=== PATIENT | female | born 1945 | race Caucasian/White ===

== ENCOUNTER 2019-05-27 15:23 | Observation (INO) | payer MEDICARE, MEDICAID ==
--- NOTE | 2019-05-27 17:48 | ED ---
GI/ HPI - HPI Summary HPI Summary: Pt is a 74 y/o F presenting to the ED with a chief complaint of vaginal bleeding initially onset last night described as small clots. The last time she experienced any vaginal bleeding was about 12yrs ago. She also reports not eating and weight loss subsequently, approx. 50lbs in 3 wks, d/t dry mouth, and constipation. She is on Coumadin, and last had a pap smear in 2011. She denies any abdominal pain or being sexually active. - History of Current Complaint Chief Complaint: EDVaginalBleeding Time Seen by Provider: 05/27/19 17:01 Stated Complaint: HEAVY BLEEDING PER PT Hx Obtained From: Patient Onset/Duration: Started Hours Ago, Still Present Timing: Constant, Lasting Hours Severity: Mild Current Severity: None Vaginal Bleeding Description: Clots Pain Intensity: 0 Location of Pain: None Associated Signs and Symptoms: Positive: Constipation, Other: - not eating, weight loss, dry mouth. Negative: Abdominal Pain Additional Signs & Symptoms: Positive: Vaginal Bleeding Aggravating Factor(s): Nothing Alleviating Factor(s): Nothing - Allergy/Home Medications Allergies/Adverse Reactions: Allergies Allergy/AdvReac Type Severity Reaction Status Date / Time bee venom protein (honey bee) Allergy Swelling Verified 05/27/19 15:54 PMH/Surg Hx/FS Hx/Imm Hx Previously Healthy: Yes Endocrine/Hematology History: Reports: Hx Thyroid Disease - HYPOTHYROID Cardiovascular History: Reports: Hx Hypertension Respiratory History: Reports: Hx Asthma - since 2010, Hx Chronic Obstructive Pulmonary Disease (COPD), Hx Seasonal Allergies, Hx Sleep Apnea Musculoskeletal History: Reports: Hx Arthritis, Hx Osteoporosis Sensory History: Reports: Hx Cataracts - cataract surgery to left eye, cataract in right eye also, no surgery Opthamlomology History: Reports: Hx Cataracts - cataract surgery to left eye, cataract in right eye also, no surgery Psychiatric History: Reports: Hx Anxiety, Hx Depression - Surgical History Surgery Procedure, Year, and Place: C Sections x2. 02/10/1972. 07/1966 Hx Anesthesia Reactions: No Infectious Disease History: No Infectious Disease History: Denies: Hx Clostridium Difficile, Hx Hepatitis, Hx Human Immunodeficiency Virus (HIV), Hx Shingles, Hx Tuberculosis, Traveled Outside the [place] in Last 30 Days - Family History Known Family History: Negative: Renal Disease - Social History Alcohol Use: None Hx Substance Use: No Substance Use Type: Reports: None Hx Tobacco Use: Yes Smoking Status (MU): Light Every Day Tobacco Smoker Review of Systems Positive: Other - dry mouth, not eating, lost ~50lbs in 3wks Positive: Other - constipation. Negative: Abdominal Pain Positive: other - vaginal bleeding All Other Systems Reviewed And Are Negative: Yes Physical Exam - Summary Physical Exam Summary: Constitutional: Well-developed, Well-nourished, Alert. (-) Distressed Skin: Warm, Dry HENT: Normocephalic; Atraumatic Eyes: Conjunctiva normal Neck: Musculoskeletal ROM normal neck. (-) JVD, (-) Stridor, (-) Tracheal deviation Cardio: Rhythm regular, rate normal, Heart sounds normal; Intact distal pulses; Radial pulses are 2+ and symmetric. (-) Murmur Pulmonary/Chest wall: Effort normal. (-) Respiratory distress, (-) Wheezes, (-) Rales Abd: Soft, (-) tenderness, (-) Distension, (-) Guarding, (-) Rebound Musculoskeletal: (-) Edema Lymph: (-) Cervical adenopathy Neuro: Alert, Oriented x3 Psych: Mood and affect Normal : No visualized mass. Limited secondary to pain. On digital exam, she does have nodularity on anterior vaginal wall. Triage Information Reviewed: Yes Vital Signs On Initial Exam: Initial Vitals Temp Pulse Resp BP Pulse Ox 97.1 F 88 18 119/69 95 05/27/19 15:49 05/27/19 15:49 05/27/19 15:49 05/27/19 15:49 05/27/19 15:49 Vital Signs Reviewed: Yes Procedures - Sedation Patient Received Moderate/Deep Sedation with Procedure: No Diagnostics - Vital Signs Vital Signs Temp Pulse Resp BP Pulse Ox 05/27/19 15:49 97.1 F 88 18 119/69 95 - Laboratory Result Diagrams: 05/27/19 17:34 05/27/19 17:34 Lab Statement: Any lab studies that have been ordered have been reviewed, and results considered in the medical decision making process. - Ultrasound Transvaginal US Ultrasound Interpretation Completed By: Radiologist Summary of Ultrasound Findings: 1. Endometrial stripe is abnormally thickened measuring 16mm. 2. The left ovary contains 2 simple appearing cystic structures , the larger cyst measuring a maximum of 1.8 cm. ED physician has reviewed this report. GIGU Course/Dx - Course Course Of Treatment: Patient is here with 24 hours of vaginal bleeding in the setting of being hyper anticoagulated from Coumadin. Patient an INR greater than 10. Patient was hemodynamically stable with a stable CBC. Patient had a vaginal exam which showed blood in the vaginal vault and nodularity in the uterus. Patient had an ultrasound showed a thickened endometrial stripe. Patient was given oral vitamin K as she did not have life-threatening hemorrhage. Patient is admitted to medicine for management of her anticoagulation - Diagnoses Provider Diagnoses: Vaginal bleeding, Elevated INR - Physician Notifications Discussed Care Of Patient With: Arsalan Cabral Time Discussed With Above Provider: 19:32 Instructed by Provider To: Admit As Inpatient Discharge ED - Sign-Out/Discharge Documenting (check all that apply): Patient Departure - Discharge Plan Condition: Stable Disposition: ADMITTED TO [facility] Referrals: Care [facility] [Outside] - Billing Disposition and Condition Condition: STABLE Disposition: Admitted to [facility] - Attestation Statements Document Initiated by Joannaibe: Yes Documenting Scribe: Svetlana Hanna Provider For Whom Negro is Documenting (Include Credential): Elver Peter MD. Scribe Attestation: Svetlana Cates, scribed for Elver Peter MD. on 05/27/19 at 2050. Scribe Documentation Reviewed: Yes Provider Attestation: The documentation as recorded by the scribeSvetlana accurately reflects the service I personally performed and the decisions made by , Elver Peter MD. Status of Scribe Document: Viewed
[2019-05-27 17:52] LABS: ABS Basophils 0.1 10^3/ul (0-0.2); ABS Eosinophils 0.3 10^3/ul (0-0.6); ABS Lymphocytes 2.3 10^3/ul (1.0-4.8); ABS Monocytes 0.9 10^3/ul (0-0.8); ABS Neutrophils 10.3 10^3/ul (1.5-7.7); Eosinophil % 1.9 %; Hematocrit 48 % (35-47); Hemoglobin 16.1 g/dL (12.0-16.0); Lymphocyte % 16.6 %; Mean Corpuscular HGB Conc 33 g/dL (31-36); Mean Corpuscular Hemoglobin 31 pg (27-31); Mean Corpuscular Volume 93 fL (80-97); Mean Platelet Volume 10.3 fL (7.4-10.4); Nucleated Red Blood Cells % 0.1; Platelet Count 187 10^3/uL (150-450); Red Blood Count 5.17 10^6 /uL (3.70-4.87); Red Cell Distribution Width 15 % (10-15); White Blood Count 13.8 10^3/uL (3.5-10.8)
[2019-05-27] MEDS ORDERED: Mometasone 220 MCG MDI INH SCH (18:00)
[2019-05-27 18:06] LABS: Albumin 3.4 g/dL (3.2-5.2); Albumin/Globulin Ratio 0.9 (1-3); BUN/Creatinine Ratio 16.5 (8-20); EGFR African American 86.6 (>60); EGFR Non-African American 71.5 (>60); Potassium 3.6 mmol/L (3.5-5.0); Total Bilirubin 0.8 mg/dL (0.2-1.0); Total Protein 7.4 g/dL (6.4-8.9)
--- OUTSIDE RECORDS SUMMARY | 2019-05-27 18:18 | XMS REPORT | Continuity of Care Document ---
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 Onset: 02/14/2012 Atrial fibrillation Rodolfo Landis M.D. Onset: 02/14/2012 Morbid obesity Rodolfo Landis M.D. Onset: 02/14/2012 Chronic atrial fibrillation Rodolfo Landis M.D. Onset: 04/06/2016 Cardiomyopathy Rodolfo Landis M.D. Onset: 04/06/2016 Essential hypertension Rodolfo Landis M.D. Onset: 07/04/2018 Social History Type Date Description Comments Sex Unknown ETOH Use Denies alcohol use Tobacco Use Start: Unknown Patient is a current smoker, smokes every day Recreational Drug Use Denies Drug Use Tobacco Use Start: Unknown Patient is a current smoker, smokes 1PPD every day Exercise Type/Frequency Exercises rarely Allergies, Adverse Reactions, Alerts Active Allergies Reaction Severity Comments Date Bee Stings 04/03/2007 Medications Active Medications SIG Qnty Indications Ordering Date Provider Potassium Citrate ER one po qd as Rodolfo Yen 07/21/2014 needed (with Delano Landis 10Meq (1080 mg) potassium) Tablets ER Proair HFA 2 puffs po q4h 1units Other Ordering 02/20/2013 108(90Base) prn Provider mcg/Act Aerosol Flonase 2 intranasal 1units Other Ordering 02/20/2013 50mcg/Act puffs to each Provider Suspension nostril daily prn Flovent HFA 2 puffs twice 12gm Other Ordering 02/20/2013 110mcg/Act daily prn Provider Aerosol Spiriva Handihaler 1 inhalation po 1caps Other Ordering 02/20/2013 18mcg qam Provider Capsules Fosamax one tablet weekly 12tabs Other Ordering 02/20/2013 70mg Tablets Provider Tramadol 2 po q 4 - 6 40tabs Other Ordering 02/20/2013 Hydrochloride/Acetamin hours prn pain Provider ophen 37.5-325mg Tablets Lisinopril 1/2 by mouth 100tabs Rodolfo Yen 02/14/2012 10mg Tablets every day Delano Landis Digoxin 1 po qd 60tabs Rodolfo Yen 12/16/2010 0.25mg Tablets Delano Landis Jobst Relief Calf 1 pair daily 2units Rodolfo Yen 08/08/2010 High Closed Toe/Medium Delano Landis Large Size Misc Cardizem CD 1 by mouth every 90caps Rodolfo Yen 11/17/2008 360mg Caps ER day Delano Landis 24HR Coumadin 1 po tiw 60tabs Rodolfo Yen 04/03/2007 5mg Tablets (mon-wed-fri) 1/2 Delano Landis po [facility] [place], [facility]. [facility] Benadryl 1 PO prn Rodolfo Yen 04/03/2007 25mg Capsules Delano Landis Sertraline HCL 2 tabs PO qd Unknown 100mg Tablets Lasix 2 by mouth as 34tabs Rodolfo Yen 20mg Tablets needed Delano Landis Cyclobenzaprine HCL 1 tab by mouth 30tabs Unknown 10mg three times a day Tablets prn Levothyroxine Sodium 1 po qd Unknown 200mcg Tablets Metoprolol Succinate 1 by mouth twice Unknown ER daily 25mg Tablets ER 24HR Atorvastatin Calcium 1 by mouth every 90tabs Genevieve, 10mg day MD Leila Tablets Immunizations Description No Information Available Vital Signs Date Vital Result Comment 07/04/2018 1:38pm Height 60 inches 5'0" Weight 234.56 lb with shoes Heart Rate 80 /min left radial, irregular BP Systolic Sitting 138 mmHg left arm, irregular BP Diastolic Sitting 70 mmHg left arm, irregular BMI (Body Mass Index) 45.8 kg/m2 Ejection Fraction 55-60% echo 10/20/15 04/06/2016 2:38pm Height 60 inches 5'0" Weight 245.00 lb Heart Rate 78 /min irreg BP Systolic Sitting 132 mmHg LA, large BP Diastolic Sitting 64 mmHg LA, large BMI (Body Mass Index) 47.8 kg/m2 Ejection Fraction 60%-65% 04/22/13 Results Description No Information Available Procedures Description No Information Available Medical Devices Description No Information Available Encounters Description No Information Available Assessments Description No Information Available Plan of Treatment Future Appointment(s):05/15/2019 1:00 pm - Santa Epperson NP at [facility]07/04/2018 - Rodolfo Landis M.D.I48.2 Chronic atrial fibrillationFollow up:please obtain labs from [facility] from the last 3 m [id number] Nonrheumatic mitral (valve) [id number] Cardiomyopathy, unspecifiedFollow up:ov 14 mI10 Essential (primary) [id number] Morbid ( severe) obesity due to excess [id number] Dyspnea, unspecified Functional Status Description No Information Available Mental Status Description No Information Available Referrals Description No Information Available
--- OUTSIDE RECORDS SUMMARY | 2019-05-27 18:18 | XMS REPORT | Continuity of Care Document ---
:1945 External Reference #:[id number] Author Name Liliana Mohamud Care Team Providers Name Role Phone Leila Vallejo MD - Family Care Team Information [employer] [employer] Medicine Problems Active Problems Provider Date Benign [...] Tablets Lisinopril 1/2 by mouth 100tabs Rodolfo Yne 02/14/2012 10mg Tablets every day Delano Landis [...] Delano Landis po [place] [place], sun. [facility] Benadryl 1 PO prn Rodolfo [...] 1:00 pm - Santa Epperson NP at [facility]07/04/2018 - Rodolfo Landis M.D.I48.2 Chronic atrial fibrillationFollow up:please obtain labs from [facility] from the last 3 m [id number] Nonrheumatic mitral (valve) qsojsjgtsxjsiW97.9 Cardiomyopathy, unspecifiedFollow up:ov 14 mI10 Essential (primary) [id number] Morbid ( severe) obesity due to excess kepdvuqaQ71.00 Dyspnea, unspecified Functional Status Description No Information Available Mental Status Description No Information Available Referrals Description No Information Available
--- OUTSIDE RECORDS SUMMARY | 2019-05-27 18:18 | XMS REPORT | Summary of Care ---
:1945 Author Organization [facility] Address [address] [facility] [place] [address] Care Team Providers Name Role Phone Leila Vallejo Primary Care Provider Reason for Referral Refer to Department Only (Routine) Status Reason Specialty Diagnoses / Referred By Referred To Procedures Contact Contact Pending Review Gastroenterology Diagnoses Constipation, unspecified constipation type Kate Huang FNP Gastroenterolo [address] [facility] [place], [place] [address] [address] [place], [place] Phone: [phone] Phone: Reason for Visit Reason Comments Mouth/Lip Problem dry mouth, taste problem Constipation Abdominal Pain Encounter Details Date Type Department Care Team Description 05/15/2019 Office Visit [facility] Mary Huang, Constipation, unspecified constipation type (Primary Dx); Practice [facility] Malaise and fatigue; [address] [facility] Thrush; [place] [address] [place] [address] Dry mouth; [phone] Weight loss Allergies Active Allergy Reactions Severity Noted Date Comments Bee Sting Dermatologic Reaction 03/03/2008 documented as of this encounter (statuses as of 05/15/2019) Medications Medication Sig Dispensed Refills Start Date End Date Status Diltiazem HCl Coated Take 1 Cap by 0 Active Beads 360 MG Oral mouth. CAPSULE SR 24 HR lisinopril (PRINIVIL, Take 1 Tab by 90 Tab 1 11/02/2015 Active ZESTRIL) 10 MG Oral mouth DAILY. Tab furosemide (LASIX) 20 Take 2 Tabs by 90 Tab 1 08/08/2016 Active MG Oral Tab mouth EVERY OTHER DAY. Pt taking 2 tabs QOD prn Additional information Patient taking differently: 40 mg Oral PRN, Pt taking 2 tabs QOD prn, Reported on 01/02/2019 7:10 PM potassium chloride Take 1 Cap by 60 Cap 0 08/08/2016 Active (KLOR-CON SPRINKLE) 10 mouth DAILY. MEQ Oral Cap CR cyclobenzaprine Take 1 Tab by 90 Tab 1 03/21/2018 Active (FLEXERIL) 10 MG Oral mouth THREE Tab TIMES DAILY NEEDED for Muscle Spasm . FLOVENT HFA 110 INHALE TWO PUFFS 3 Inhaler 1 04/16/2018 Active MCG/ACT Inhalation BY MOUTH TWICE Aerosol DAILY SPIRIVA HANDIHALER 18 INHALE ONE DOSE 90 Cap 1 04/16/2018 Active MCG Inhalation Cap BY MOUTH ONCE DAILY PROAIR HFA 108 (90 INHALE 2 PUFFS 3 Inhaler 1 11/11/2018 Active Base) MCG/ACT BY MOUTH EVERY 4 Inhalation Aero Soln HOURS NEEDED FOR WHEEZING levothyroxine TAKE 1 TABLET BY 90 Tab 1 01/28/2019 Active (SYNTHROID) 200 MCG MOUTH BEFORE Oral Tab BREAKFAST alendronate (FOSAMAX) TAKE 1 TABLET BY 12 Tab 1 01/28/2019 Active 70 MG Oral Tab MOUTH ONCE A WEEK atorvastatin (LIPITOR) TAKE 1 TABLET BY 90 Tab 1 02/07/2019 Active 10 MG Oral Tab MOUTH ONCE DAILY Vitamin D, Take 50,000 4 Cap 3 03/21/2019 Active Ergocalciferol, Units by mouth (ERGOCALCIFEROL) 09031 DAILY. units Oral Cap digoxin (LANOXIN, TAKE 1 TABLET BY 90 Tab 1 04/03/2019 Active DIGITEK) 250 MCG Oral MOUTH ONCE DAILY Tab oxybutynin (DITROPAN Take 1 Tab by 30 Tab 0 04/10/2019 Active XL) 5 MG Oral TABLET mouth DAILY. SR 24 HR metoprolol succinate Take 1 Tab by 180 Tab 1 04/10/2019 Active (TOPROL XL) 25 MG Oral mouth TWICE TABLET SR 24 HR DAILY. levothyroxine Take 1 Tab by 30 Tab 2 04/23/2019 Active (SYNTHROID) 175 MCG mouth BEFORE Oral Tab BREAKFAST. warfarin (COUMADIN) 5 Take 0.5 Tabs by 90 Tab 3 04/28/2019 Active MG Oral mouth DAILY. TabIndications: Atrial 2.5mg daily fibrillation, unspecified type (HCC) sertraline (ZOLOFT) TAKE 2 TABLETS 180 Tab 1 04/28/2019 Active 100 MG Oral Tab BY MOUTH AT BEDTIME nystatin (MYCOSTATIN) Take 5 mL by 280 mL 0 05/15/2019 Active 493438 UNIT/ML mouth FOUR TIMES Mouth/Throat DAILY. SuspensionIndications: Thrush tramadol (ULTRAM) 50 Take 1 Tab by 60 Tab 0 05/15/2019 Active MG Oral Tab mouth EVERY SIX HOURS NEEDED (pain). Max Daily Amount: 200 mg. tramadol (ULTRAM) 50 Take 1 Tab by 60 Tab 0 02/25/2019 1010/ Discontinued MG Oral mouth EVERY SIX 2019 (Reorder) TabIndications: Left HOURS NEEDED lower quadrant pain (pain). Max Daily Amount: 200 mg. warfarin (COUMADIN) 5 Take 0.5 Tabs by 60 Tab 0 04/04/201910/ Discontinued MG Oral mouth DAILY. 2019 (Duplicate Order) TabIndications: Atrial 2.5mg daily fibrillation, unspecified type (HCC) documented as of this encounter (statuses as of 05/15/2019) Active Problems Problem Noted Date Depression 09/26/2016 Atrial fibrillation, unspecified type 10/14/2015 A-fib 07/22/2014 HTN (hypertension) 07/17/2014 BMI 45.0-49.9, adult 07/17/2014 Cervical dysplasia 05/30/2012 Osteoporosis 04/26/2012 COPD (chronic obstructive pulmonary disease) 03/04/2012 DJD (degenerative joint disease) 03/04/2012 ANDRESSA (obstructive sleep apnea) 11/01/2010 Overview: Wearing cpap mask Since 08/2009 Hypothyroid 11/01/2010 Overview: Status post AHUJA ~1994 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 Diltiazem increases warfarin effect Levothyroxine increases warfarin effect Sertraline increases warfarin level Updated Referral: 12/2011, 01/2013, 07/21/14, 11/2015, 01/29/17, 08/2018 AntiCoag Orders 01/21/2013, 07/22/14, 11/18/15, 03/26/17, 08/27/18 Tobacco use disorder 04/02/2007 Atrial fibrillation 07/06/2005 Overview: Chronic; cath 2007 Dr Perry Cardiomyopathy documented as of this encounter (statuses as of 05/15/2019) Immunizations Name Administration Dates Next Due H1N1 Injectable Adult 08/27/2009 Influenza (IM) Preservative Free 07/17/2014, 05/21/2013, 04/02/2012 Influenza Vaccine 65 Yrs + 04/22/2019 Influenza Vaccine High Dose 05/27/2018, 07/06/2017, 07/18/2016, 07/06/2015 Influenza Vaccine Whole 05/25/2009, 06/13/2007 Influenza Virus Vaccine Pres Free 6-35 04/28/2011 Months PNEUMOCOCCAL POLYSACCHARIDE VACCINE 04/02/2012 Pneumococcal Conjugate(13 Valent) 09/26/2016 documented as of this encounter Social History Tobacco Use Types Packs/Day Years Used Date Current Every Day Smoker Cigars 0.5 55 Started: 1962 Smokeless Tobacco: Never Used Tobacco Cessation: Ready to Quit: No; Counseling Given: Yes Alcohol Use Drinks/Week oz/Week Comments Not Currently RARE Social Isolation Answer Date Recorded In a typical week, how many times do you More than three times a week 2018 talk on the phone with family, friends, or neighbors? How often do you get together with friends More than three times a week 01/06 or relatives? How often do you attend yarsanism or Not asked samaritan services? Do you belong to any clubs or Not asked organizations such as yarsanism groups, unions, fraternal or athletic groups, or school groups? How often do you attend meetings of the Not asked clubs or organizations you belong to? Are you now , , , 01/06/2019 , never or living with a partner? Physical Activity Answer Date Recorded On average, how many days per week do you engage in moderate to 0 days 2018 strenuous exercise (like walking fast, running, jogging, dancing, swimming, biking, or other activities that cause a light or heavy sweat)? On average, how many minutes do you engage in exercise at this 0 min 2018 level? Stress Answer Date Recorded Do you feel stress - tense, restless, nervous, or anxious, Not at all 2018 or unable to sleep at night because your mind is troubled all the time - these days? Financial Resource Strain Answer Date Recorded How hard is it for you to pay for the very basics like Not hard at all 2018 food, housing, medical care, and heating? Intimate Partner Violence Answer Date Recorded Within the last year, have you been afraid of your partner or No 01/06/2019 ex-partner? Within the last year, have you been humiliated or emotionally No 01/06/2019 abused in other ways by your partner or ex-partner? Within the last year, have you been kicked, hit, slapped, or No 01/06/2019 otherwise physically hurt by your partner or ex-partner? Within the last year, have you been raped or forced to have any No 01/06/2019 kind of sexual activity by your partner or ex-partner? Food Insecurity Answer Date Recorded Within the past 12 months, you worried that your food would Never true 2018 run out before you got money to buy more. Within the past 12 months, the food you bought just didn't Never true 2018 last and you didn't have money to get more. Transportation Needs Answer Date Recorded In the past 12 months, has lack of transportation kept you from No 01/06/2019 medical appointments or from getting medications? In the past 12 months, has lack of transportation kept you from No 01/06/2019 meetings, work, or getting things needed for daily living? Sex Assigned at Date Recorded Not on file Job Start Date Occupation Industry Not on file Not on file Not on file Travel History Travel Start Travel End No recent travel history available. documented as of this encounter Last Filed Vital Signs Vital Sign Reading Time Taken Comments Blood Pressure 148/68 05/15/2019 11:01 AM EDT Pulse 97 05/15/2019 11:01 AM EDT Temperature 37 05/15/2019 11:01 AM EDT C (98.6 F) Respiratory Rate - - Oxygen Saturation 94% 05/15/2019 11:01 AM EDT Inhaled Oxygen Concentration - - Weight 83.9 kg (185 lb) 05/15/2019 11:01 AM EDT Height 149.9 cm (4' 11") 05/15/2019 11:01 AM EDT Body Mass Index 37.37 05/15/2019 11:01 AM EDT documented in this encounter Patient Instructions Patient InstructionsMary Huang FNP - 05/15/2019 11:00 AM EDTMedication as directed Lots of water Can try sour candy to stimulate saliva Labs today Schedule appointment with GI Follow up with Dr Vallejo as scheduled documented in this encounter Progress Notes Mary Huang FNP - 05/15/2019 11:00 AM EDT PATIENT: Kae Rhodes : 1945 DATE OF SERVICE: 05/15/2019 CHIEF COMPLAINT: Chief Complaint Patient presents with Mouth/Lip Problem dry mouth, taste problem Constipation Abdominal Pain Subjective HISTORY OF PRESENT ILLNESS: Kae Rhodes is a 74-y.o. female. HPI Increased constipation, poor appetite, mouth dry, wt loss. Drinks 3-4 glasses of water a day. Has not had colonoscopy - refuses. Past Medical History: Diagnosis Date Asthma 03/16/2008 Atrial fibrillation (HCC) 07/06/2005 Back pain Cardiomyopathy (HCC) COPD (chronic obstructive pulmonary disease) (HCC) DJD (degenerative joint disease) 03/04/2012 History of breast surgery rt breast bx benign Hypertension Hypothyroidism Obesity Osteoporosis Ovarian cancer (HCC) Sleep apnea CPAP / HS Family History Problem Relation Age of Onset Breast Cancer Mother Radical Mastectomy Arthritis Mother Ovarian Cancer Sister Arthritis Sister Thyroid Sister Asthma Sister Asthma Sister Cancer Sister Cancer Father Asthma Brother COPD Brother No Known Problems Son No Known Problems Daughter Current Outpatient Medications Medication Sig alendronate (FOSAMAX) 70 MG Oral Tab TAKE 1 TABLET BY MOUTH ONCE A WEEK atorvastatin (LIPITOR) 10 MG Oral Tab TAKE 1 TABLET BY MOUTH ONCE DAILY cyclobenzaprine (FLEXERIL) 10 MG Oral Tab Take 1 Tab by mouth THREE TIMES DAILY NEEDED forMuscle Spasm . digoxin (LANOXIN, DIGITEK) 250 MCG Oral Tab TAKE 1 TABLET BY MOUTH ONCE DAILY Diltiazem HCl Coated Beads 360 MG Oral CAPSULE SR 24 HR Take 1 Cap by mouth. FLOVENT HFA 110 MCG/ACT Inhalation Aerosol INHALE TWO PUFFS BY MOUTH TWICE DAILY furosemide (LASIX) 20 MG Oral Tab Take 2 Tabs by mouth EVERY OTHER DAY. Pt taking 2 tabs QOD prn (Patient taking differently: Take 40 mg by mouth NEEDED. Pt taking 2 tabs QOD prn) levothyroxine (SYNTHROID) 175 MCG Oral Tab Take 1 Tab by mouth BEFORE BREAKFAST. levothyroxine (SYNTHROID) 200 MCG Oral Tab TAKE 1 TABLET BY MOUTH BEFORE BREAKFAST lisinopril (PRINIVIL, ZESTRIL) 10 MG Oral Tab Take 1 Tab by mouth DAILY. metoprolol succinate (TOPROL XL) 25 MG Oral TABLET SR 24 HR Take 1 Tab by mouth TWICE DAILY. nystatin (MYCOSTATIN) 371484 UNIT/ML Mouth/Throat Suspension Take 5 mL by mouth FOUR TIMES DAILY. oxybutynin (DITROPAN XL) 5 MG Oral TABLET SR 24 HR Take 1 Tab by mouth DAILY. potassium chloride (KLOR-CON SPRINKLE) 10 MEQ Oral Cap CR Take 1 Cap by mouth DAILY. PROAIR HFA 108 (90 Base) MCG/ACT Inhalation Aero Soln INHALE 2 PUFFS BY MOUTH EVERY 4 HOURS NEEDED FOR WHEEZING sertraline (ZOLOFT) 100 MG Oral Tab TAKE 2 TABLETS BY MOUTH AT BEDTIME SPIRIVA HANDIHALER 18 MCG Inhalation Cap INHALE ONE DOSE BY MOUTH ONCE DAILY tramadol (ULTRAM) 50 MG Oral Tab Take 1 Tab by mouth EVERY SIX HOURS NEEDED (pain). Max Daily Amount: 200 mg. Vitamin D, Ergocalciferol, (ERGOCALCIFEROL) 29910 units Oral Cap Take 50, 000 Units by mouth DAILY. warfarin (COUMADIN) 5 MG Oral Tab Take 0.5 Tabs by mouth DAILY. 2.5mg daily No current facility-administered medications for this visit. Allergies Allergen Reactions Bee Stings [Bee Sting] Dermatologic Reaction Social History Socioeconomic History Marital status: Single Spouse name: Not on file Number of children: 2 Years of education: Not on file Highest education level: Not on file Occupational History Not on file Social Needs Financial resource strain: Not hard at all Food insecurity: Worry: Never true Inability: Never true Transportation needs: Medical: No Non-medical: No Tobacco Use Smoking status: Current Every Day Smoker Packs/day: 0.50 Years: 55.00 Pack years: 27.50 Types: Cigars Start date: 1961 Smokeless tobacco: Never Used Substance and Sexual Activity Alcohol use: Not Currently Comment: RARE Drug use: No Sexual activity: Not Currently Partners: Male Lifestyle Physical activity: Days per week: 0 days Minutes per session: 0 min Stress: Not at all Relationships Social connections: Talks on phone: More than three times a week Gets together: More than three times a week Attends samaritan service: Not on file Active member of club or organization: Not on file Attends meetings of clubs or organizations: Not on file Relationship status: Intimate partner violence: Fear of current or ex partner: No Emotionally abused: No Physically abused: No Forced sexual activity: No Other Topics Concern Not on file Social History Narrative Single Living with two sisters Adult son adult daughter local REVIEW OF SYSTEMS: Review of Systems Constitutional: Positive for malaise/fatigue and weight loss. Negative for chills and fever. Gastrointestinal: Positive for abdominal pain and constipation. Negative for blood in stool, diarrhea, melena, nausea and vomiting. Genitourinary: Negative for dysuria, hematuria and urgency. Incontinence Musculoskeletal: Positive for myalgias. Neurological: Negative for dizziness and headaches. Objective PHYSICAL EXAM: VITALS: BP 148/68 (BP Location: Left arm, Patient Position: Sitting) | Pulse 97 | Temp 98.6 F(37 C) (Tympanic) | Ht 4' 11" (1.499 m) | Wt 185 lb ( 83.9 kg) | SpO2 94% | BMI 37.37 kg/m Body mass index is 37.37 kg/m. Physical Exam Vitals signs reviewed. Constitutional: Comments: Wt down approx 11 lbs from last visit HENT: Head: Normocephalic and atraumatic. Nose: Nose normal. Mouth/Throat: Mouth: Mucous membranes are moist. Tongue: No lesions. Pharynx: Uvula midline. No posterior oropharyngeal erythema. Eyes: Pupils: Pupils are equal, round, and reactive to light. Cardiovascular: Rate and Rhythm: Normal rate and regular rhythm. Pulmonary: Effort: Pulmonary effort is normal. Breath sounds: Normal breath sounds. Abdominal: General: Bowel sounds are normal. There is no distension. Palpations: Abdomen is soft. There is no mass. Tenderness: There is tenderness in the left lower quadrant. There is no right CVA tenderness, left CVA tenderness, guarding or rebound. Lymphadenopathy: Cervical: No cervical adenopathy. Skin: General: Skin is warm and dry. Coloration: Skin is not pale. Neurological: Mental Status: She is alert and oriented to person, place, and time. ASSESSMENT / IMPRESSION: ICD-9-CM ICD-10-CM 1. Constipation, unspecified constipation type 564.00 K59.00 COMPREHENSIVE METABOLIC PANEL REFER TO GI 2. Malaise and fatigue 780.79 R53.81 CBC WITH DIFFERENTIAL R53.83 3. Thrush 112.0 B37.0 nystatin (MYCOSTATIN) 170044 UNIT/ML Mouth/Throat Suspension 4. Dry mouth 527.7 R68.2 5. Weight loss 783.21 R63.4 Plan Medication as directed Lots of water Can try sour candy to stimulate saliva Labs today Schedule appointment with GI Suggested CT of abdomen - pt declines Follow up with Dr Vallejo as scheduled Author: GURDEEP Rosales 05/15/2019 11:48 documented in this encounter Plan of Treatment Date Type Specialty Care Team Description 05/27/2019 Lab Internal Medicine 06/03/2019 Office Visit Family Practice Leila Vallejo MD [address] [place] [address] [phone] 06/03/2019 Office Visit Gastroenterology Velia Lopez, [facility] [address] [place] [address] 06/03/2019 AntiCoag Anticoagulation 01/12/2020 Chronic Care Management Family Practice Name Type Priority Associated Diagnoses Order Schedule COMPREHENSIVE METABOLIC Lab Routine Constipation, unspecified Expected: 05/2019 PANEL constipation type (Approximate), Expires: 11/11/2019 CBC WITH DIFFERENTIAL Lab Routine Malaise and fatigue Expected: 05/15/2019 (Approximate), Expires: 11/11/2019 Name Type Priority Associated Diagnoses Order Schedule REFER TO GI Referral Routine Constipation, unspecified Expected: 05/15/2019 , constipation type Expires: 05/15/2020 Health Maintenance Due Date Last Done Comments ZOSTER IMMUNIZATION SERIES 1997 (1 of 2) PNEUMOCOCCAL 65+YRS (2 of 2 09/26/2017 09/26/2016, 04/02/2012 - PPSV23) DEPRESSION SCREENING 01/07/2020 01/06/2019, 01/02/2019 FALL RISK ASSESSMENT 01/07/2020 01/06/2019, 01/06/2019 MEDICARE ANNUAL WELLNESS 01/07/2020 01/06/2019 VISIT MAMMOGRAM (SCREENING) 01/15/2020 01/14/2019, 10/07/2015, 03/18/2014, Additional history exists LIPID DISORDER SCREENING 04/22/2020 04/22/2019, 02/07/2019, 11/19/2018, Additional history exists OSTEOPOROSIS SCREENING 01/14/2029 01/14/2019, 04/11/2012, 04/11/2012 INFLUENZA VACCINE Completed 04/22/2019, 05/27/2018, 07/06/2017, Additional history exists HPV IMMUNIZATION SERIES Aged Out No longer eligible based on patient's age to complete this topic MENINGOCOCCAL VACCINE IMM Aged Out No longer eligible based on patient's age to complete this topic documented as of this encounter Goals Goal Patient Goal Associated Recent Patient-Stated? Author Type Problems Progress Blood Pressure Blood Pressure HTN 148/68 No Genevieve, < 140/90 (hypertension) (05/15/2019 Leila, 11:01 AM EDT) Note: Hypertension Care Plan Based on the patient's clinical history and according to JNC 8 guidelines target blood pressure goal is less than 140/90. Based on the patient's last blood pressure of BP: 138/70 mmHg the patient is at at goal. As your provider, it is important that I advise you regarding: your current medications and help you with any challenges you may face taking your medications as directed (ex. instructions, cost, side effects, and interactions). Important lifestyle changes: weight reduction, dietary sodium reduction and smoking cessation your clinical goals and how you can achieve success: weight reduction, exercise plan and smoking cessation medication management: adjusted medications as appropriate patient education/self-management tools provided: Yes To successfully manage my Hypertension I will: monitor my blood pressure daily, understanding that my goal is less than 140/ 90 per my healthcare provider's recommendation. I will schedule an appointment with my provider if consistent abnormal readings greater than 160/100. take medications every day as prescribed by my healthcare provider and if unable to take them I will discuss with my provider. monitor for symptoms of chest pain, chest tightness/pressure, irregular heartbeat, persistent dizziness, radiating arm pain, and neck or jaw pain. If any of these symptoms are noticed I will seek medical attention immediately by calling 911 exercise/walk 30 minutes 5 day(s) per week. If I experience chest pain, chest tightness, or shortness of breath, I will seek medical attention immediately. follow a diet rich in fruits, vegetables, and low-fat dairy products with reduced content of saturated & total fat. I will reduce my sodium intake daily. An example is the DASH diet. To obtain more information please refer to the DASH Eating Plan listed in Educational Resources. record my blood pressure results. [employer] is safe and secure way for you to do this in your medical record online. try to obtain an ideal body weight. My recent weight was Weight: 236 lb ( 107.049 kg). My weight loss goal for my next office visit is 230. limit alcohol consumption. For men two drinks per day and women one drink per day. if currently smoking, will discuss how to quit smoking with my healthcare provider and work towards quitting. Educational Resources: National Heart, Lung, & Blood [place] http://nhlbi.nih.gov/hbp/index.html The DASH Diet Eating Plan http://www.nhlbi.nih.gov/health/health-topics/ topics/dash/ Academy of Nutrition & DIetetics http://eatright.org National Smoking Cessation Site http://smokefree.gov Blood Pressure < Blood Pressure 148/68 (05/15/2019 No Leila Vallejo, 140/90 11:01 AM EDT) Note: This is an individualized treatment (blood pressure) goal for Kae Rhodes: Displayed above (on the left) is your goal for blood pressure control. Your most recent blood pressure is also shown above, on the right. You should try to achieve blood pressures that are lower than your goal listed above (on the left). Smoking Cessation COPD Leila Rivera MD Note: This is an individualized treatment (COPD) goal for Kae Rhodes: Quit smoking immediately! Your provider has information and resources that may help you to quit. Depression screen Depression 12 (01/02/2019 6:54 PM No Leila Vallejo, (PHQ-9) total score < 5 EDT) Note: This is an individualized treatment (depression) goal for Kae Rhodes: Displayed above is your goal for a depression screening (PHQ-9) score that would indicate good control of your depression. Lifestyle - Current Lifestyle Tobacco use disorder Leila Rivera MD Smoker Note: Smoking Cessation Plan Discussed smoking cessation with patient. Patient readiness to quit:no Discussed smoking cessation plan according to AHRQ guidelines:counseled patient on the risks of tobacco use and advised patient to quit and offered support My Quit Plan: My quit date is set for Notify my friends, family, and co-workers about decision to quit. Will ask for their support and understanding Remove tobacco products from my environment. I will ask people not to smoke around me or in my home. I will anticipate challenges at the beginning and will try not to be discouraged. To remember the benefits of quitting such as improved health, feeling better about myself, saving money, etc. Reducing stressors and avoiding triggers are essential keys to my success Finding ways to distract myself when I have the urge to smoke such as taking a walk, reading, playing a board game, putting together a puzzle, etc. Taking medications as my healthcare provider has advised to help alleviate the urge to smoke. If I am unable to take the medication, I will discuss further with my healthcare provider. Recognize reasons for relapse in my past attempts. What did and did not work for me Consider connecting with group, individual, or telephone counseling Weight loss vs. 18 mo Lifestyle 59 (05/15/2019 11:01 AM No Leila Vallejo MD max (lbs) >= 10 EDT) Note: This is an individualized lifestyle goal for Kae Rhodes: Your body mass index (BMI) is more than 30. You should lose weight. A reasonable starting goal is to lose 10 pounds. Displayed above is how many pounds you have lost thus far towards your 10 pound weight loss goal. Keep immunizations current Lifestyle Leila Rivera MD Note: This is an individualized lifestyle goal for Kae Rhodes: Please be sure to keep up-to-date on recommended immunizations. For example, this would include a yearly influenza vaccine. Immunization status can be seen by looking at the Health Maintenance sections of your [employer], Plan of Care, and any After Visit Summaries. Keep a regular sleep schedule Lifestyle Leila Rivera MD Note: This is an individualized lifestyle goal for Kae Rhodes: Please maintain a regular sleep schedule. This may help with some symptoms of depression. Take all prescribed medications as Self-management Leila Rivera MD directed Note: This is an individualized self-management goal for Kae Rhodes: Please take all prescribed medications as directed. 1. Do not skip doses. If you cannot afford your medications, talk with your doctor. 2. Use a pill reminder system such as a pill box if needed. Your pharmacist can help you with this. 3. Contact your Pharmacy 5 days before your medication runs out. If you cannot take your medications for any reasons, talk with your doctor. 4. Please bring all of your medication bottles and inhalers (or a list of all your medications/inhalers) with you to every visit. Potential barriers to meeting all of your care plan goals will continue to be addressed on an ongoing basis. documented as of this encounter Results Not on filedocumented in this encounter Visit Diagnoses Diagnosis Constipation, unspecified constipation type - Primary Malaise and fatigue Other malaise and fatigue Thrush Candidiasis of mouth Dry mouth Disturbance of salivary secretion Weight loss Loss of weight documented in this encounter Insurance Payer Benefit Plan / Subscriber ID Effective Phone Address Type Group Dates UHC MEDICARE UNITED xxxxxxxxx 2018-Prese UHC ADVANTAGE HEALTHCARE nt MEDICARE ADV[place]ID [place] xxxxxxxx 2016-Prese Medicaid [place] nt Guarantor Name Account Type Relation to Date of Phone Billing Address Patient Kae Rhodes Personal/Family 1945 [address] (Home) [place], [place] [phone] (Work) documented as of this encounter
--- OUTSIDE RECORDS SUMMARY | 2019-05-27 18:18 | XMS REPORT | Continuity of Care Document ---
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 [facility] Benadryl 1 PO prn Rodolfo [...] 1:00 pm - Santa Epperson NP at [facility]07/04/2018 - Rodolfo Landis M.D.I48.2 Chronic atrial fibrillationFollow up:please obtain labs from [facility] from the last 3 m lwwnpxR01.0 Nonrheumatic mitral (valve) fizkaahhkvaduN71.9 Cardiomyopathy, unspecifiedFollow up:ov 14 mI10 Essential (primary) guwhbwiodjtuD51.01 Morbid ( severe) obesity due to excess pigltrfeQ75.00 Dyspnea, unspecified Functional Status Description No Information Available Mental Status Description No Information Available Referrals Description No Information Available
--- OUTSIDE RECORDS SUMMARY | 2019-05-27 18:18 | XMS REPORT | Continuity of Care Document ---
:1945 External Reference #:[id number] Author Name Santa Epperson NP (transmitted by agent of provider Frances Davis) Address [address] [place] [id number] Care Team Providers Name Role Phone Leila Vallejo MD - Family Care Team Information Program Director/Music Director [phone] Medicine Problems Active Problems Provider Date Benign [...] Delano Landis Digoxin 1 po qd 60tabs Rodolof Yen 12/16/2010 0.25mg Tablets Delano Landis Jobst Relief Calf 1 pair daily 2units Rodolfo Yen 08/08/2010 High Closed Toe/Medium Delano Landis Large Size Misc Cardizem CD 1 by mouth every 90caps Rodolfo Yen 11/17/2008 360mg Caps ER day Delano Landis 24HR Coumadin 1 po tiw 60tabs Rodolfo Yen 04/03/2007 5mg Tablets (mon-wed-sun) 1/2 Delano Landis po ingrid, warren, monalisa christie. [facility] Benadryl 1 PO prn Rodolfo [...] Available Vital Signs Date Vital Result Comment 05/15/2019 1:18pm Height 60 inches 5'0" Heart Rate 88 /min left radial BP Systolic Sitting 150 mmHg ule reg cuff BP Diastolic Sitting 72 mmHg ule reg cuff O2 % BldC Oximetry 95 % Ejection Fraction 55-60% Echo 08/22/18 07/04/2018 1:38pm Height 60 inches 5'0" Weight 234.56 lb with shoes Heart Rate 80 /min left radial, irregular BP Systolic Sitting 138 mmHg left arm, irregular BP Diastolic Sitting 70 mmHg left arm, irregular BMI (Body Mass Index) 45.8 kg/m2 Ejection Fraction 55-60% echo 10/20/15 Results Description No Information Available Procedures Date Code Description Status 05/15/2019 85954 EKG Tracing & Interpretation Completed Medical Devices Description No Information Available Encounters Description No Information Available Assessments Date Code Description Provider 05/15/2019 I35.0 Nonrheumatic aortic (valve) stenosis Santa Epperson NP 05/15/2019 I10 Essential (primary) hypertension Santa Epperson NP 05/15/2019 I42.9 Cardiomyopathy, unspecified Santa Epperson NP 05/15/2019 R94.31 Abnormal electrocardiogram [ECG] [EKG] Santa Epperson NP 05/15/2019 I48.21 Permanent atrial fibrillation Santa Epperson NP Plan of Treatment Future Appointment(s):06/26/2019 1:00 pm - Santa Epperson NP at [facility]06/04/2019 11:00 am - [place] ECHO Schedule at [facility]2018 8:30 am - Rodolfo Landis M.D. at [facility]05/15/2019 - Santa Epperson NPI35.0 Nonrheumatic aortic (valve) stenosisNew Orders: Echocardiogram, Scheduled: 06/04/19I10 Essential (primary) valxdusaykbrU68.9 Cardiomyopathy, yanohoemqttA43.31 Abnormal electrocardiogram [ECG] [EKG]New Orders:Stress Test, Pharmacologic Nuclear (Lexiscan), Scheduled: 06/20/19Follow up:follow up after cardiac qoqksowP71.21 Permanent atrial fibrillation Functional Status Description No Information Available Mental Status Description No Information Available Referrals Description No Information Available
--- OUTSIDE RECORDS SUMMARY | 2019-05-27 18:19 | XMS REPORT | Summary of Care ---
:1945 Author Organization [facility] Address [address] [facility] [place] [address] Care Team Providers Name Role Phone Leila Vallejo MD Primary Care Provider Reason for Visit Reason Comments Follow Up to UTI, poor appetie and constipation Encounter Details Date Type Department Care Team Description 04/10/2019 Office Visit Mary Steele, Abdominal pain, unspecified abdominal location (Primary Dx); Practice [facility]PER[facility] Constipation, unspecified constipation type [address] [place] [address] [place] [address] [phone] Allergies Active Allergy Reactions Severity Noted Date Comments Bee Sting Dermatologic Reaction 03/03/2008 documented as of this encounter (statuses as of 04/10/2019) Medications Medication Sig Dispensed Refills Start Date [...] Reported on 01/02/2019 7:10 PM potassium chloride (KLOR-CON Take 1 Cap by mouth 60 Cap 0 08/08/2016 Active SPRINKLE) 10 MEQ Oral Cap CR DAILY. cyclobenzaprine (FLEXERIL) 10 Take 1 Tab by mouth 90 Tab 1 03/21/2018 Active MG Oral Tab THREE TIMES DAILY NEEDED for Muscle Spasm . FLOVENT HFA 110 MCG/ACT INHALE TWO PUFFS BY 3 Inhaler 1 04/16/2018 Active Inhalation Aerosol MOUTH TWICE DAILY SPIRIVA HANDIHALER 18 MCG INHALE ONE DOSE BY 90 Cap 1 04/16/2018 Active Inhalation Cap MOUTH ONCE DAILY sertraline (ZOLOFT) 100 MG TAKE 2 TABLETS BY MOUTH 180 Tab 1 11/07/2018 Active Oral Tab AT BEDTIME PROAIR HFA 108 (90 Base) INHALE 2 PUFFS BY MOUTH 3 Inhaler 1 11/11/2018 Active MCG/ACT Inhalation Aero Soln EVERY 4 HOURS NEEDED FOR WHEEZING levothyroxine (SYNTHROID) 200 TAKE 1 TABLET BY MOUTH 90 Tab 1 01/28/2019 Active MCG Oral Tab BEFORE BREAKFAST alendronate (FOSAMAX) 70 MG TAKE 1 TABLET BY MOUTH 12 Tab 1 01/28/2019 Active Oral Tab ONCE A WEEK atorvastatin (LIPITOR) 10 MG TAKE 1 TABLET BY MOUTH 90 Tab 1 02/07/2019 Active Oral Tab ONCE DAILY metoprolol succinate (TOPROL TAKE 1 TABLET BY MOUTH 60 Tab 3 02/16/2019 Active XL) 25 MG Oral TABLET SR 24 HR TWICE DAILY tramadol (ULTRAM) 50 MG Oral Take 1 Tab by mouth 60 Tab 0 02/25/2019 Active TabIndications: Left lower EVERY SIX HOURS quadrant pain NEEDED (pain). Max Daily Amount: 200 mg. tolterodine (DETROL) 1 MG Oral Take 1 Tab by mouth 60 Tab 0 02/25/2019 Active TabIndications: Urinary TWICE DAILY. incontinence, unspecified type oxybutynin (DITROPAN XL) 10 MG Take 1 Tab by mouth 30 Tab 2 02/26/2019 Active Oral TABLET SR 24 HR DAILY. Vitamin D, Ergocalciferol, Take 50,000 Units by 4 Cap 3 03/21/2019 Active (ERGOCALCIFEROL) 63241 units mouth DAILY. Oral Cap digoxin (LANOXIN, DIGITEK) 250 TAKE 1 TABLET BY MOUTH 90 Tab 1 04/03/2019 Active MCG Oral Tab ONCE DAILY warfarin (COUMADIN) 5 MG Oral Take 0.5 Tabs by mouth 60 Tab 0 04/04/2019 Active TabIndications: Atrial DAILY. 2.5mg daily fibrillation, unspecified type (HCC) oxybutynin (DITROPAN XL) 5 MG Take 1 Tab by mouth 30 Tab 0 04/10/2019 Active Oral TABLET SR 24 HR DAILY. 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 Diltiazem increases warfarin effect Levothyroxine increases warfarin effect Sertraline increases warfarin level Updated Referral: 12/2011, 01/2013, 07/21/14, 11/2015, 01/29/17, 08/2018 AntiCoag Orders 01/21/2013, 07/22/14, 11/18/15, 03/26/17, 08/27/18 Tobacco use disorder 04/02/2007 Atrial fibrillation 07/06/2005 Overview: Chronic; cath 2006 Dr Perry Cardiomyopathy documented as of this encounter (statuses as of 04/10/2019) Immunizations Name Administration Dates Next Due H1N1 Injectable Adult 08/27/2009 Influenza (IM) Preservative Free 07/17/2014, 05/21/2013, 04/02/2012 Influenza Vaccine High Dose 05/27/2018, 07/06/2017, 07/18/2016, 07/06/2015 Influenza Vaccine Whole 05/25/2009, 06/13/2007 Influenza Virus Vaccine Pres Free 6-35 04/28/2011 Months PNEUMOCOCCAL POLYSACCHARIDE VACCINE 04/02/2012 Pneumococcal Conjugate(13 Valent) 09/26/2016 documented as of this encounter Social History Tobacco Use Types Packs/Day Years Used Date Current Every Day Smoker Cigars 0.5 55 Started: 1962 Smokeless Tobacco: Never Used Alcohol Use Drinks/Week oz/Week Comments Not Currently RARE Social Isolation Answer Date Recorded In a typical week, how many times do you More than three times a week 2018 talk on the phone with family, friends, or neighbors? How often do you get together with friends More than three times a week 01/06 or relatives? How often do you attend temple or Not asked sikh services? Do you belong to any clubs or Not asked organizations such as temple groups, unions, fraternal or athletic groups, or [...] Sign Reading Time Taken Comments Blood Pressure 137/78 04/10/2019 8:35 AM EDT Pulse 96 04/10/2019 8:35 AM EDT Temperature 36.3 04/10/2019 8:35 AM EDT C (97.3 F) Respiratory Rate - - Oxygen Saturation 94% 04/10/2019 8:35 AM EDT Inhaled Oxygen Concentration - - Weight 90.4 kg (199 lb 6.4 oz) 04/10/2019 8:35 AM EDT Height 152.4 cm (5') 04/10/2019 8:35 AM EDT Body Mass Index 38.94 04/10/2019 8:35 AM EDT documented in this encounter Patient Instructions Patient InstructionsMary Huang FNP - 04/10/2019 8:20 AM EDTLots of water Decrease Ditropan to 5 mg a day Can try Enema or suppository for constipation Schedule follow up with Dr Vallejo in next few months documented in this encounter Progress Notes Mary Huang FNP - 04/10/2019 8:20 AM EDT PATIENT: Kae Rhodes : 1945 DATE OF SERVICE: 04/10/2019 CHIEF COMPLAINT: Chief Complaint Patient presents with Follow Up to UTI, poor appetie and constipation Subjective HISTORY OF PRESENT ILLNESS: Kae Rhodes is a 73-y.o. female. HPI Poor appetite. Increased constipation, dry mouth - is taking Ditropan - states it has helped incontinence. Feels like has to urinate all the time Past Medical History: Diagnosis Date Asthma 03/16/2008 [...] taking 2 tabs QOD prn) levothyroxine (SYNTHROID) 200 MCG Oral Tab TAKE 1 TABLET BY MOUTH BEFORE BREAKFAST lisinopril (PRINIVIL, ZESTRIL) 10 MG Oral Tab Take 1 Tab by mouth DAILY. metoprolol succinate (TOPROL XL) 25 MG Oral TABLET SR 24 HR TAKE 1 TABLET BY MOUTH TWICE DAILY oxybutynin (DITROPAN XL) 10 MG Oral TABLET SR 24 HR Take 1 Tab by mouth DAILY. oxybutynin (DITROPAN XL) 5 MG Oral [...] INHALE ONE DOSE BY MOUTH ONCE DAILY tolterodine (DETROL) 1 MG Oral Tab Take 1 Tab by mouth TWICE DAILY. tramadol (ULTRAM) 50 MG Oral Tab Take 1 Tab by mouth EVERY SIX HOURS NEEDED (pain). Max Daily Amount: 200 mg. Vitamin D, Ergocalciferol, (ERGOCALCIFEROL) 44546 units Oral Cap Take 50, 000 Units [...] More than three times a week Attends sikh service: Not on file Active member of [...] SYSTEMS: Review of Systems Constitutional: Positive for malaise/fatigue. Negative for chills and fever. Gastrointestinal: Positive for abdominal pain and constipation. Negative for blood in stool, diarrhea, nausea and vomiting. Genitourinary: Positive for frequency. Negative for dysuria, hematuria and urgency. Objective PHYSICAL EXAM: VITALS: BP 137/78 | Pulse 96 | Temp 97.3 F (36.3 C) | Ht 5' (1.524 m ) | Wt 199 lb 6.4 oz (90.4 kg) | SpO2 94% | BMI 38.94 kg/m Body mass index is 38.94 kg/m. Physical Exam Constitutional: She is oriented to person, place, and time. Vital signs are normal. She appears well-developed and well-nourished. HENT: Head: Normocephalic and atraumatic. Eyes: Pupils are equal, round, and reactive to light. Abdominal: Soft. She exhibits no distension and no mass. Bowel sounds are decreased. There is no hepatosplenomegaly. There is tenderness in the left upper quadrant and left lower quadrant. There is no rigidity, no rebound and no guarding. No hernia. Neurological: She is alert and oriented to person, place, and time. Skin: Skin is warm and dry. Vitals reviewed. ASSESSMENT / IMPRESSION: ICD-9-CM ICD-10-CM 1. Abdominal pain, unspecified abdominal location 789.00 R10.9 CANCELED: URINE DIP MANUAL (AMB POCT) CANCELED: URINE CULTURE (C&S) 2. Constipation, unspecified constipation type 564.00 K59.00 Plan Lots of water Decrease Ditropan to 5 mg a day Can try Enema or suppository for constipation Schedule follow up with Dr Vallejo in next few months Author: GURDEEP Rosales 04/10/2019 09:10 documented in this encounter Plan of Treatment Date Type Specialty Care Team Description 04/23/2019 Office Visit [facility] Mary Huang FNP [address] [place] [address] [phone] 01/12/2020 Chronic Care Management [facility] Health Maintenance Due Date Last Done Comments ZOSTER IMMUNIZATION SERIES 1997 (1 of 2) PNEUMOCOCCAL 65+YRS (2 of 2 09/26/2017 09/26/2016, 04/02/2012 - PPSV23) INFLUENZA VACCINE (#1) 2019 05/27/2018, 07/06/2017, 07/18/2016, Additional history exists DEPRESSION SCREENING 01/07/2020 01/06/2019, 01/02/2019 FALL RISK ASSESSMENT 01/07/2020 01/06/2019, 01/06/2019 MEDICARE ANNUAL WELLNESS 01/07/2020 01/06/2019 VISIT MAMMOGRAM (SCREENING) 01/15/2020 01/14/2019, 10/07/2015, 03/18/2014, Additional history exists LIPID DISORDER SCREENING 02/08/2020 02/07/2019, 11/19/2018, 03/08/2018, Additional history exists OSTEOPOROSIS SCREENING 01/14/2029 01/14/2019, 04/11/2012, 04/11/2012 HPV IMMUNIZATION SERIES Aged Out No longer eligible based on patient's age to complete this topic MENINGOCOCCAL VACCINE IMM Aged Out No longer eligible based on patient's age to complete this topic documented as of this encounter Goals Goal Patient Goal Associated Recent Patient-Stated? Author Type Problems Progress Blood Pressure Blood Pressure HTN 137/78 No Genevieve, < 140/90 (hypertension) (04/10/2019 Leila, 8:35 AM EDT) Note: Hypertension Care Plan Based [...] Educational Resources. record my blood pressure results. Alan is safe and secure way for you [...] Educational Resources: National Heart, Lung, & Blood [place] http://nhlbi.nih.gov/hbp/index.html The DASH Diet Eating Plan http://www.nhlbi.nih.gov/health/health-topics/ topics/dash/ Academy of Nutrition & DIetetics http://eatright.org National Smoking Cessation Site http://smokefree.gov Blood Pressure < Blood Pressure 137/78 (04/10/2019 No Leila Vallejo, 140/90 8:35 AM EDT) Note: This is an individualized treatment (blood pressure) goal for Kae Rhodes: Displayed above (on the left) is your goal for blood pressure control. Your most recent blood pressure is also shown above, on the right. You should try to achieve blood pressures that are lower than your goal listed above (on the left). Smoking Cessation COPD No Leila Vallejo MD Note: This is an individualized treatment [...] Lifestyle - Current Lifestyle Tobacco use disorder No Leila Vallejo MD Smoker Note: Smoking Cessation Plan Discussed [...] counseling Weight loss vs. 18 mo Lifestyle 44.6 (04/10/2019 8:35 AM No Leila Vallejo MD max (lbs) >= 10 EDT) Note: This is an individualized lifestyle goal for Kaelee Amadorgo: Your body mass index (BMI) is more than 30. You should lose weight. A reasonable starting goal is to lose 10 pounds. Displayed above is how many pounds you have lost thus far towards your 10 pound weight loss goal. Keep immunizations current Lifestyle No Leila Vallejo MD Note: This is an individualized lifestyle goal for Kae Rhodes: Please be sure to keep up-to-date on recommended immunizations. For example, this would include a yearly influenza vaccine. Immunization status can be seen by looking at the Health Maintenance sections of your e[employer], Plan of Care, and any After Visit Summaries. Keep a regular sleep schedule Lifestyle No Leila Vallejo MD Note: This is an individualized lifestyle goal for Kae Rhodes: Please maintain a regular sleep schedule. This may help with some symptoms of depression. Take all prescribed medications as Self-management No Leila Vallejo MD directed Note: This is an individualized self-management goal for Kae Rhdoes: Please take all prescribed medications as directed. [...] filedocumented in this encounter Visit Diagnoses Diagnosis Abdominal pain, unspecified abdominal location - Primary Constipation, unspecified constipation type documented in this encounter Insurance Payer Benefit Plan / Subscriber ID Effective Phone Address Type Group Dates UHC MEDICARE UNITED xxxxxxxxx 2018-Prese UHC ADVANTAGE HEALTHCARE nt MEDICARE ADVANTAGE MEDICAID [place] xxxxxxxx 2016-Prese Medicaid [place] nt Guarantor Name Account Type Relation to Date of Phone Billing Address Patient Kae Rhodes Personal/Family 1945 [address] (Home) [place], [place] [phone] (Work) documented as of this encounter"
--- OUTSIDE RECORDS SUMMARY | 2019-05-27 18:19 | XMS REPORT | Summary of Care ---
:1945 Author Organization [facility] Address [address] [facility] [place] [address] Care Team Providers Name Role Phone Leila Vallejo MD Primary Care Provider Reason for Visit Reason Comments Surgery Approval cataract , c/o consipation and dry mouth Encounter Details Date Type Department Care Team Description 04/22/2019 Office Visit [facility] [place], Preop examination ( Primary Dx); Practice MD Leila Flu vaccine need; [address] [facility] Chronic atrial fibrillation (HCC); [place] [address] [place] [address] Hypothyroidism, unspecified type; [phone] Other hyperlipidemia; Weight loss Allergies Active Allergy Reactions Severity Noted Date Comments Bee Sting Dermatologic Reaction 03/03/2008 documented as of this encounter (statuses as of 04/22/2019) Medications Medication Sig Dispensed Refills Start Date [...] Active (FLEXERIL) 10 MG Oral mouth THREE TIMES Tab DAILY NEEDED for Muscle Spasm . FLOVENT HFA 110 MCG/ACT INHALE TWO PUFFS 3 Inhaler 1 04/16/2018 Active Inhalation Aerosol BY MOUTH TWICE DAILY SPIRIVA HANDIHALER 18 INHALE ONE DOSE 90 Cap 1 04/16/2018 Active MCG Inhalation Cap BY MOUTH ONCE DAILY sertraline (ZOLOFT) 100 TAKE 2 TABLETS BY 180 Tab 1 11/07/2018 Active MG Oral Tab MOUTH AT BEDTIME PROAIR HFA 108 (90 Base) INHALE 2 PUFFS BY 3 Inhaler 1 11/11/2018 Active MCG/ACT Inhalation Aero MOUTH EVERY 4 Soln HOURS NEEDED FOR WHEEZING levothyroxine TAKE 1 TABLET BY 90 Tab 1 01/28/2019 Active (SYNTHROID) 200 MCG Oral MOUTH BEFORE Tab BREAKFAST alendronate (FOSAMAX) 70 TAKE 1 TABLET BY 12 Tab 1 01/28/2019 Active MG Oral Tab MOUTH ONCE A WEEK atorvastatin (LIPITOR) TAKE 1 TABLET BY 90 Tab 1 02/07/2019 Active 10 MG Oral Tab MOUTH ONCE DAILY tramadol (ULTRAM) 50 MG Take 1 Tab by 60 Tab 0 02/25/2019 Active Oral TabIndications: mouth EVERY SIX Left lower quadrant pain HOURS NEEDED (pain). Max Daily Amount: 200 mg. Vitamin D, Take 50,000 Units 4 Cap 3 03/21/2019 Active Ergocalciferol, by mouth DAILY. (ERGOCALCIFEROL) 51980 units Oral Cap digoxin (LANOXIN, TAKE 1 TABLET BY 90 Tab 1 04/03/2019 Active DIGITEK) 250 MCG Oral MOUTH ONCE DAILY Tab warfarin (COUMADIN) 5 MG Take 0.5 Tabs by 60 Tab 0 04/04/2019 Active Oral TabIndications: mouth DAILY. Atrial fibrillation, 2.5mg daily unspecified type (HCC) oxybutynin (DITROPAN XL) Take 1 Tab by 30 Tab 0 04/10/2019 Active 5 MG Oral TABLET SR 24 mouth DAILY. HR metoprolol succinate Take 1 Tab by 180 Tab 1 04/10/2019 Active (TOPROL XL) 25 MG Oral mouth TWICE TABLET SR 24 HR DAILY. tolterodine (DETROL) 1 Take 1 Tab by 60 Tab 0 02/25/2019 04/22/20 Discontinued MG Oral TabIndications: mouth TWICE 19 Urinary incontinence, DAILY. unspecified type oxybutynin (DITROPAN XL) Take 1 Tab by 30 Tab 2 02/26/2019 04/22/20 Discontinued 10 MG Oral TABLET SR 24 mouth DAILY. 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 Diltiazem increases warfarin effect Levothyroxine increases warfarin effect Sertraline increases warfarin level Updated Referral: 12/2011, 01/2013, 07/21/14, 11/2015, 01/29/17, 08/2018 AntiCoag Orders 01/21/2013, 07/22/14, 11/18/15, 03/26/17, 08/27/18 Tobacco use disorder 04/02/2007 Atrial fibrillation 07/06/2005 Overview: Chronic; cath 2006 Dr Perry Cardiomyopathy documented as of this encounter (statuses as of 04/22/2019) Immunizations Name Administration Dates Next Due H1N1 [...] or relatives? How often do you attend hinduism or Not asked adventist services? Do you belong to any clubs or Not asked organizations such as hinduism groups, unions, fraternal or athletic groups, or [...] Sign Reading Time Taken Comments Blood Pressure 120/70 04/22/2019 10:20 AM EDT Pulse 124 04/22/2019 10:20 AM EDT Temperature 36.6 04/22/2019 10:20 AM EDT C (97.8 F) Respiratory Rate - - Oxygen Saturation 98% 04/22/2019 10:20 AM EDT Inhaled Oxygen Concentration - - Weight 89 kg (196 lb 4.8 oz) 04/22/2019 10:20 AM EDT Height 149.9 cm (4' 11") 04/22/2019 10:20 AM EDT Body Mass Index 39.65 04/22/2019 10:20 AM EDT documented in this encounter Patient Instructions Patient InstructionsLeila Vallejo MD - 04/22/2019 10:00 AM EDT1. Stop Ditropan 2. Follow up as scheduled 3. Start Ensure 1 can once a day documented in this encounter Progress Notes Leila Vallejo MD - 04/22/2019 10:00 AM EDT PATIENT: Kae Rhodes : 1945 DATE OF SERVICE: 04/22/2019 Subjective SUBJECTIVE: Kae Rhodes is a 73-y.o. female who presents to the office today for a preoperative consultation at the request of Dr. Sanchez, who will perform a R cataract ectomy on 05/01/19. Patient complains of cardiac symptoms: none. Patient denies cardiac symptoms: chest pain, chest pressure/discomfort, dyspnea , palpitations, syncope. Past history of pulmonary embolism/deep vein thrombosis: no. There is a history of bleeding complications: no Past history of anesthetic problem: no. Exercise capacity: Can you walk 2 blocks on level ground, or carry 2 bags of groceries up 2 flights of stairs? No due to Dejenerative joint disease Count the number of risk factors in the revised [place] cardiac risk index. ( RCRI): High risk procedure: eg vascular surgery, any open intraperitoneal or intrathoracic History of ischemic heart disease (history of HI or a positive exercise test, current complaint of chest pain considered to be secondary to myocardial ischemia, use of nitrate therapy, or ECG with pathological Q waves; do not count prior coronary revascularization procedure unless one of the other criteria for ischemic heart disease is present) Hx of CHF, either systolic or diastolic History of cerebrovascular disease (TIA or Stroke) Diabetes mellitus requiring treatment with insulin Preoperative serum creatinine >2.0 mg/dl The risk of cardiac , nonfatal myocardial infarction, and nonfatal cardiac arrest according to the number of above risk predictors is estimated to be: One risk factor - 1.0 percent (95% CI: 0.5 - 1.4) Current active problems are: Patient Active Problem List Diagnosis Date Noted Depression 09/26/2016 Atrial fibrillation, unspecified type ([facility]) 10/14/2015 A-fib ([facility]) 07/22/2014 HTN (hypertension) 07/17/2014 BMI 45.0-49.9, adult ([facility]) 07/17/2014 Cardiomyopathy ([facility]) Cervical dysplasia 05/30/2012 Osteoporosis 04/26/2012 COPD (chronic obstructive pulmonary disease) ([facility]) 03/04/2012 DJD (degenerative joint disease) 03/04/2012 ANDRESSA (obstructive sleep apnea) 11/01/2010 Wearing cpap mask Since 08/2009 Hypothyroid 11/01/2010 Status post AHUJA ~1994 Asthma 03/16/2008 snf current use of anticoagulant therapy 08/22/2007 Managed by: [facility] Referring Provider: Pita Indication: Afib Target Range: 2.0-3.0 Duration: Indefinite Additional factors influencing anticoagulation: CHADS2 score of 1 for hypertension [id number] score of 3 for age > 65, hypertension, female gender. Diltiazem increases warfarin effect Levothyroxine increases warfarin effect Sertraline increases warfarin level Updated Referral: 12/2011, 01/2013, 07/21/14, 11/2015, 01/29/17, 08/2018 AntiCoag Orders 01/21/2013, 07/22/14, 11/18/15, 03/26/17, 08/27/18 Tobacco use disorder 04/02/2007 Atrial fibrillation (HCC) 07/06/2005 Chronic; cath 2006 Dr Perry Past Medical History: Diagnosis Date Asthma 03/16/2008 [...] Take 1 Tab by mouth TWICE DAILY. oxybutynin (DITROPAN XL) 5 MG Oral [...] Amount: 200 mg. Vitamin D, Ergocalciferol, (ERGOCALCIFEROL) 50525 units Oral Cap Take 50, 000 Units [...] More than three times a week Attends adventist service: Not on file Active member of [...] son adult daughter local REVIEW OF SYSTEMS: CONSTITUTIONAL: positive for decreased appetite and weight loss. EARS, NOSE, MOUTH, THROAT and FACE: positive for dry mouth. GASTROINTESTINAL: positive for constipation. Objective OBJECTIVE: BP 120/70 (BP Location: Left arm, Patient Position: Sitting) | Pulse (!) 124 | Temp 97.8 F (36.6 C) | Ht 4' 11" (1.499 m) | Wt 196 lb 4.8 oz (89 kg ) | SpO2 98% | BMI 39.65 kg/m GENERAL: alert, no distress. SKIN: normal. EYES: conjunctivae/corneas clear. Pupil- opacification on the R. Equal ocular movements intact. Fundi benign.. MOUTH: Dry mucus membraine, coated tongue. LYMPH NODES: cervical, supraclavicular, and axillary nodes normal.. LUNGS: clear to auscultation bilaterally. HEART: irregularly irregular rhythm. ABDOMEN: soft, non-tender. Bowel sounds normal. No masses, no organomegaly. EXTREMITIES: varicose veins noted, venous stasis dermatitis noted. NEUROLOGIC: negative. EKG: atrial fibrillation, rate 98, ST and T waves in anterior lateral leads new compare to 07/04/18 from cardiology office. Chest X-ray: no acute changes ICD-9-CM ICD-10-CM 1. Preop examination New EKG changes Will refer for cardiology evaluation V72.84 Z01.818 XR CHEST 2 VIEW PA AND LATERAL (STANDARD) 2. Flu vaccine need V04.81 Z23 AL FLU VACCINE 65 YRS + 3. Chronic atrial fibrillation (HCC) 427.31 I48.2 CBC WITH DIFFERENTIAL DIGOXIN LEVEL 4. Hypothyroidism, unspecified type 244.9 E03.9 THYROID STIMULATING HORMONE FREE T4 5. Other hyperlipidemia 272.4 E78.49 COMPREHENSIVE METABOLIC PANEL LIPID PROFILE 6. Weight loss Will D/C Ditropan (dry mouth) Consider CT Abdomen/pelvis/chest 783.21 R63.4 Patient Instructions 1. Stop Ditropan 2. Follow up as scheduled 3. Start Ensure 1 can once a day Author: Leila Vallejo MD 04/22/2019 10:31 documented in this encounter Plan of Treatment Date Type Specialty Care Team Description 05/06/2019 Office Visit Family Practice Leila Vallejo MD [address] [place] [address] [phone] 01/12/2020 Chronic Care Management Family Practice Name Type Priority Associated Diagnoses Date/Time COMPREHENSIVE METABOLIC Lab Routine Other hyperlipidemia 04/22/2019 11:40 AM PANEL EDT LIPID PROFILE Lab Routine Other hyperlipidemia 04/22/2019 11:40 AM EDT THYROID STIMULATING Lab Routine Hypothyroidism, 04/22/2019 11:40 AM HORMONE unspecified type EDT FREE T4 Lab Routine Hypothyroidism, 04/22/2019 11:40 AM unspecified type EDT CBC WITH DIFFERENTIAL Lab Routine Chronic atrial 04/22/2019 11:40 AM fibrillation (HCC) EDT DIGOXIN LEVEL Lab Routine Chronic atrial 04/22/2019 11:40 AM fibrillation (HCC) EDT XR CHEST 2 VIEW PA AND Imaging Routine Preop examination 04/22/2019 11:28 AM LATERAL (STANDARD) EDT Health Maintenance Due Date Last Done Comments [...] Problems Progress Blood Pressure Blood Pressure HTN 120/70 No [place], < 140/90 (hypertension) (04/22/2019 Leila, 10:20 AM EDT) Note: Hypertension Care Plan Based [...] Educational Resources: National Heart, Lung, & Blood [place] http://nhlbi.nih.gov/hbp/index.html The DASH Diet Eating Plan http://www.nhlbi.nih.gov/health/health-topics/ topics/dash/ Academy of Nutrition & DIetetics http://eatright.org National Smoking Cessation Site http://smokefree.gov Blood Pressure < Blood Pressure 120/70 (04/22/2019 No Leila Vallejo, 140/90 10:20 AM EDT) Note: This is an individualized [...] counseling Weight loss vs. 18 mo Lifestyle 47.7 (04/22/2019 10:20 AM No Leila Vallejo MD max (lbs) [...] filedocumented in this encounter Visit Diagnoses Diagnosis Preop examination - Primary Preoperative examination, unspecified Flu vaccine need Need for prophylactic vaccination and inoculation against influenza Chronic atrial fibrillation (HCC) Atrial fibrillation Hypothyroidism, unspecified type Other hyperlipidemia Weight loss Loss of weight documented in this encounter Insurance Payer Benefit Plan / Subscriber ID Effective Phone Address Type Group Dates UHC MEDICARE UNITED xxxxxxxxx 2018-Prese UHC ADVANTAGE HEALTHCARE nt MEDICARE ADV[place] xxxxxxxx 2016-Prese Medicaid [place] MEDICA[place] nt Guarantor Name Account Type Relation to Date of Phone Billing Address Patient Kae Rhodes Personal/Family [address] (Home) [place], [place] [phone] [id number] (Work) documented as of this encounter
--- OUTSIDE RECORDS SUMMARY | 2019-05-27 18:19 | XMS REPORT | Continuity of Care Document ---
:1945 External Reference #:[id number] Author Name Daniel Sanchez M.D. Address [address] [place] [address] Care Team Providers Name Role Phone Monica Dixon M.D. - Internal Medicine Care Team Information Gyroscopic Instrument Mechanic [phone] Leila Vallejo M.D. - Family Care Team Information Gyroscopic Instrument Mechanic Medicine Problems Active Problems Provider Date Hypothyroidism Onset: Atrial fibrillation Onset: Essential hypertension Onset: Osteoarthritis Onset: Presence of intraocular lens Daniel Sanchez M.D. Onset: 04/01/2019 Combined form of senile cataract Daniel Sanchez M.D. Onset: 04/01/2019 Social History Type Date Description Comments Sex Unknown ETOH Use Rarely consumes alcohol Tobacco Use Start: Unknown Heavy tobacco smoker (more than 10 cigarettes/day) Recreational Drug Use Denies Drug Use Smoking Status Reviewed: 04/01/19 Heavy tobacco smoker (more than 10 cigarettes/day) Allergies, Adverse Reactions, Alerts Active Allergies Reaction Severity Comments Date Bee Stings 04/01/2019 Medications Active Medications SIG Qnty Indications Ordering Date Provider Potassium Chloride Mitzi Unknown ER 10Meq Tablets ER Furosemide Unknown 20mg Tablets Cyclobenzaprine HCL as needed Unknown 10mg Tablets Flovent HFA Unknown 110mcg/Act Aerosol Digoxin Unknown 250mcg Tablets Sertraline HCL Take 2 Tablets By Unknown 100mg Tablets Mouth AT Bedtime Proair HFA Inhale 2 Puffs By Unknown 108(90Base) Mouth Every 4 mcg/Act Aerosol Hours as Needed For Wheezing Lisinopril 1/2 tablet daily Unknown 10mg Tablets Diltiazem HCL ER Coated Take 1 Capsule By Unknown Beads Mouth Once Daily 360mg Caps ER 24HR Alendronate Sodium Unknown 70mg Tablets Levothyroxine Sodium Unknown 200mcg Tablets Warfarin Sodium Unknown 5mg Tablets Atorvastatin Calcium Take 1 Tablet By Unknown 10mg Mouth Once Daily Tablets Tramadol HCL as needed Unknown 50mg Tablets Oxybutynin Chloride ER Unknown 10mg Tablets ER 24HR Vitamin D Take 1 Capsule By Unknown (Ergocalciferol) Mouth Once A Week [id number] Capsules Metoprolol Succinate ER Take 1 Tablet By Unknown 25mg Mouth Twice Daily Tablets ER 24HR Immunizations Description No Information Available Vital Signs Description No Information Available Results Description No Information Available Procedures Description No Information Available Medical Devices Description No Information Available Encounters Description No Information Available Assessments Date Code Description Provider 04/01/2019 H25.811 Combined forms of age-related cataract, Daniel Sanchez M.D. right eye 04/01/2019 Z96.1 Presence of intraocular lens Daniel Sanchez M.D. Plan of Treatment 04/01/2019 - Daniel Sanchez M.D.H25.811 Combined forms of age-related cataract , right eyeComments:Smoking can increase the risk of developing or worsening any eye related disease, as well as affect your overall health. If you are a smoker, we strongly recommend that you quit.If you are not a smoker, we strongly recommend that you do not start. You have been diagnosed with a cataract in your right eye. It is limiting your vision, and I am unable to improve you with new glasses. Our next step is to schedule Cataract surgery and all necessary appointments, which [facility] will do for you. We recommend that you write down any questions you may have and bring them to your preoperative appointment so that Dr. Sanchez can answer them for you. If you have any questions or concerns, you can reach [facility] at .Follow up:For preop exam before surgery.Z96.1 Presence of intraocular lensComments:The artificial lens implant in your left eye appears to be stable at this time. Functional Status Description No Information Available Mental Status Description No Information Available Referrals Description No Information Available
[2019-05-27 18:25] LABS: INR >10.00 (0.82-1.09)
[2019-05-27] MEDS ORDERED: Phytonadione Oral Solution* 5 MG/25 ML UDC PO ONE (18:31)
[2019-05-27 19:14] LABS: Digoxin 1.5 ng/ml (0.8-2.0)
[2019-05-27] MEDS ORDERED: NS 0.9% 1000 ML** 1,000 ML IV SCH (20:45)
[2019-05-27] MEDS ORDERED: Albuterol HFA INHALER* 8 gm MDI INH PRN (20:54)
[2019-05-27] MEDS ORDERED: traMADol TAB* 50 MG PO PRN (20:54)
[2019-05-27] MEDS ORDERED: Sertraline* 100 MG TAB PO SCH (21:00)
[2019-05-27] MEDS: Metoprolol Succinate XL TAB* 25 MG PO SCH (23:36)
--- NOTE | 2019-05-28 00:30 | HP ---
CC: Dr. Leila Vallejo * ADMISSION HISTORY AND PHYSICAL: DATE OF ADMISSION: 05/27/19 PRIMARY CARE PHYSICIAN: Dr. Leila Vallejo. PRIMARY RETAIL FIELD SUPERVISOR: Dr. Rodolfo Landis. CHIEF COMPLAINT: Vaginal bleeding. HISTORY OF PRESENT ILLNESS: This is a 74-year-old female with past medical history of AFib, on Coumadin; hypertension; hypothyroidism; dyslipidemia; depression; COPD; osteoarthritis; osteoporosis; vitamin B deficiency, came in due to vaginal bleeding. The patient stated that she has been in her usual state of health up until about a few weeks ago, when she started having decreased appetite, constipation, dry mouth, has had a 50-pound weight loss, and her Coumadin level was slightly elevated, last check was about over a month ago. She is scheduled to have another repeat INR done in a few days and her recent INR was high, so they decreased her Coumadin dosage; however, last night , she started having vaginal bleeding. She stated that her menopause was when she turned 62 years old, roughly 12 years ago and her last Pap smear was in 2011 which was noted to be abnormal and was recommended to have a followup biopsy; however, given her experience with the RESEARCH LIBRARIAN, which was painful, she did not want to go back and she never followed up with another repeat Pap smear , and she was also told that she had uterine wart, again she did not follow up with that as well. She otherwise denies any fever, chills, any nausea or vomiting at this point. Only other concern was that food does not taste well, she feels like her mouth is very dry. She otherwise has been compliant with her medications including her Coumadin. PAST MEDICAL HISTORY: As mentioned AFib, rate control with oral Coumadin, now with supratherapeutic INR; history of obstructive sleep apnea, on CPAP at home; hypertension; hypothyroidism; dyslipidemia; depression; COPD, not on any oxygen ; osteoarthritis; osteopenia; vitamin D deficiency; right eye cataract that needs to be resected in the near future. She does have intermittent lower extremity edema, for which she takes p.r.n. Lasix. She denied any previous heart attack or stroke and stated that she has had an echocardiogram within this year by Dr. Landis, although I do not see the result in the computer system. PAST SURGICAL HISTORY: She has had two C-sections, and a breast biopsy, and as mentioned last Pap smear was in 2011. She has also had a cardiac catheterization in 2006, which showed no definitive obstructive coronary artery disease. HOME MEDICATIONS: The patient is currently on: 1. ProAir HFA 2 puffs by inhalation every 4 hours p.r.n. shortness of breath. 2. Lisinopril 10 mg oral daily. 3. Fluticasone nasal spray, both nares daily. 4. Fluticasone Diskus 2 puffs by inhalation b.i.d. 5. Potassium chloride 10 mEq daily p.r.n. 6. Lasix 20 mg every other day p.r.n. 7. Oxybutynin 5 mg oral daily. 8. Digoxin 0.25 mg oral daily. 9. Metoprolol 25 mg oral b.i.d. 10. Levothyroxine 175 mcg oral daily. 11. Diltiazem 360 mg oral daily. 12. Atorvastatin 10 mg oral daily. 13. Alendronate 70 mg p.o. weekly. 14. Coumadin 2.5 mg every Sunday, Sunday, Sunday, Sunday, and 5 mg on Sunday, , and Sunday. 15. Zoloft 200 mg at bedtime. 16. Tramadol 50 mg p.o. 6 hours as needed for pain. 17. Ergocalciferol 50,000 units every week. FAMILY HISTORY: Positive for father who of stomach cancer, mother who had breast cancer in her 50s, and sister diagnosed with uterine cancer. SOCIAL HISTORY: She has a history of smoking a pack a day, but has cut down to half a pack a day for the last few months. Denies any alcohol or drug use. She is retired and lives with her 3 sisters and for code status she has been thinking on considering do not resuscitate but has not come to in a conclusion yet and for now she wants to be full code for this admission. If she changes her mind, she will let the nurse know and we can further finish any paperwork as necessary based on her final decision. REVIEW OF SYSTEMS: A 14-point review of systems did not reveal any new information other than what is stated in the HPI. PHYSICAL EXAMINATION GENERAL: The patient is awake, alert, and oriented x3, does not appear to be in any acute respiratory distress. VITAL SIGNS: In the ER, temperature 97.6, BP was 138/75, heart rate 80, respiratory rate 14, saturating 95% on room air. HEAD AND NECK: Atraumatic, normocephalic. Pupils are bilaterally reactive. There is cataract on the right eye. Oral mucosa was dry. Neck is supple. No jugular venous distention. LUNGS: Clear to auscultation bilaterally. No wheezing, rhonchi, or rales. HEART: S1, S2. There was a systolic murmur. ABDOMEN: Soft, nontender. There was abdominal bruit that was heard, although it could be just systolic murmur radiating from her heart. EXTREMITIES: No cyanosis, clubbing, or edema. VAGINAL EXAM: Performed by the ER physician suggests blood in the vaginal vault and nodularity in the uterus. DIAGNOSTIC STUDIES/LAB DATA: Transvaginal ultrasound performed in the ER was read as endometrial stripe is abnormally thick and measures about 16 mm. The left ovary contains 2 simple-appearing cystic structures and the largest measures maximum of 1.8 cm. CBC shows mildly elevated white count of 13.8, hemoglobin and hematocrit show elevated hemoglobin at 16.1, platelet count was normal. Coagulation profile shows INR greater than 10. Comprehensive metabolic panel was unremarkable. Digoxin level was in the therapeutic range. IMPRESSION: This is a 74-year-old female with atrial fibrillation, on Coumadin ; hypertension; hypothyroidism; dyslipidemia; depression; chronic obstructive pulmonary disease, here due to vaginal bleeding likely secondary to supratherapeutic INR with possible abnormal uterus given the elevated endometrial stripe and previous history of normal Pap smear 12 years ago. ASSESSMENT AND PLAN: 1. Vaginal bleeding. For now, the patient's hemoglobin is stable. ER already spoke with Dr. Tyrell Pineda, who recommended an outpatient biopsy, does not need an urgent SIX COLOR PRESS OPERATOR evaluation. For now, we will hydrate the patient and keep an eye on the hemoglobin. If hemoglobin drops or vaginal bleeding persists, we can consider reconsulting RESEARCH LIBRARIAN to evaluate the patient. 2. Supratherapeutic INR. The patient already received vitamin K in the ER. We will repeat daily INRs to trend her INR. We will hold the Coumadin for now and consider further vitamin K versus FFP as needed based on her bleeding profile. 3. History of atrial fibrillation. We will monitor on telemetry. We will get an EKG during this admission. 4. Systolic murmur, history of mitral valve regurgitation documented in the chart. Murmur could be related to that. She did have a recent echocardiogram by Dr. Landis. We will try to obtain records. 5. Abdominal bruit. We will get an ultrasound of the abdomen just to rule out any abdominal aortic aneurysm given her history of smoking. 6. Hypertension. Restart home medications. 7. History of hypothyroidism. Restart levothyroxine. 8. History of dyslipidemia. Restart statins. 9. History of chronic obstructive pulmonary disease. Restart home medications. 10. History of depression. Restart home medications. 11. DVT prophylaxis. With sequential compression device. The patient has already supratherapeutic INR. Once INR is controlled and her bleeding stops, we could consider restarting her home dose of Coumadin. 12. Code status. The patient is currently full code, is considering changing to DNR in the near future but currently did not finalize yet. [id number]/CPS #: [id number] VIC
[2019-05-28] MEDS ORDERED: Levothyroxine TAB* 175 MCG TAB PO SCH (06:00)
[2019-05-28 06:27] LABS: ABS Basophils 0.1 10^3/ul (0-0.2); ABS Eosinophils 0.5 10^3/ul (0-0.6); ABS Lymphocytes 2.2 10^3/ul (1.0-4.8); ABS Neutrophils 7.4 10^3/ul (1.5-7.7); Eosinophil % 4.1 %; Hematocrit 43 % (35-47); Hemoglobin 14.5 g/dL (12.0-16.0); Lymphocyte % 19.8 %; Mean Corpuscular HGB Conc 34 g/dL (31-36); Mean Corpuscular Hemoglobin 31 pg (27-31); Mean Corpuscular Volume 93 fL (80-97); Mean Platelet Volume 10.5 fL (7.4-10.4); Platelet Count 152 10^3/uL (150-450); Red Blood Count 4.61 10^6 /uL (3.70-4.87); Red Cell Distribution Width 15 % (10-15); White Blood Count 11.1 10^3/uL (3.5-10.8)
[2019-05-28 06:33] LABS: INR 4.92 (0.82-1.09)
[2019-05-28 06:51] LABS: BUN/Creatinine Ratio 16.2 (8-20); Calcium 9.4 mg/dL (8.6-10.3); EGFR African American 102.9 (>60); EGFR Non-African American 85.1 (>60); Potassium 3.8 mmol/L (3.5-5.0)
[2019-05-28] MEDS ORDERED: Fluticasone NASAL SPRAY 50MCG* 16 gm SPRAY BTL BOTH NARES SCH (09:00)
[2019-05-28] MEDS ORDERED: Lisinopril TAB* 10 MG PO SCH (09:00)
[2019-05-28] MEDS ORDERED: Diltiazem CD CAP* 180 MG PO SCH (09:00)
[2019-05-28] MEDS ORDERED: Digoxin TAB* 0.25 MG PO SCH (09:00)
[2019-05-28] MEDS ORDERED: Atorvastatin* 10 MG TAB PO SCH (09:00)
[2019-05-28] MEDS: Metoprolol Succinate XL TAB* 25 MG PO SCH (10:02)
[2019-05-28 12:37] VITALS: BP 143/49
--- NOTE | 2019-05-28 18:26 | DS ---
Resident Discharge Summary Discharge Summary: Date of Admission: 05/27/19 Date of Discharge: 05/28/19 Admitting MD: Arsalan Cabral MD Attending MD: Mary Rollins MD Primary Care Physician: Leila Vallejo MD Home Medications Medication Instructions Recorded Confirmed Type Albuterol HFA INHALER* [Ventolin 2 puff INH Q4H PRN 08/28/12 05/27/19 History HFA Inhaler*] Furosemide TAB* [Lasix TAB*] 20 mg PO EVERY OTHER DAY PRN 08/28/12 05/27/19 History Levothyroxine TAB* [Synthroid 150 175 mcg PO DAILY 08/28/12 05/27/19 History MCG TAB*] Lisinopril TAB* [Prinivil TAB 10 10 mg PO DAILY 08/28/12 05/27/19 History MG*] Sertraline* [Zoloft*] 200 mg PO BEDTIME 08/29/12 05/27/19 History Fluticasone DISKUS 100 MCG(NF) 2 puff INH BID 02/06/15 05/27/19 History [Flovent Diskus 100 MCG(NF)] Fluticasone NASAL SPRAY 50MCG* 2 spray BOTH NARES DAILY 02/06/15 05/27/19 History [Flonase NASAL SPRAY 50MCG*] Alendronate (NF) [Fosamax (NF)] 70 mg PO WEEKLY 05/27/19 05/27/19 History Atorvastatin* [Lipitor 10 MG*] 10 mg PO DAILY 05/27/19 05/27/19 History Digoxin TAB* [Lanoxin TAB*] 0.25 mg PO DAILY 05/27/19 05/27/19 History Ergocalciferol CAP* [Drisdol CAP*] 50,000 unit PO WEEKLY 05/27/19 05/27/19 History Metoprolol Succinate XL TAB* 25 mg PO BID 05/27/19 05/27/19 History [Toprol XL TAB*] Oxybutynin XL TAB* [Ditropan XL 5 mg PO DAILY 05/27/19 05/27/19 History TAB*] Potassium Chlor TAB* [Klor Con ER 10 meq PO DAILY PRN 05/27/19 05/27/19 History TAB 10 MEQ*] dilTIAZem ER 360 MG 24HR (NF) 360 mg PO DAILY 05/27/19 05/27/19 History traMADol TAB* [Ultram*] 50 mg PO Q6HR PRN 05/27/19 05/27/19 History Disposition: Home Condition: Stable Primary Diagnosis: 1. Vaginal bleeding 2. Supratherapeutic warfarin Secondary Diagnosis: 1. Atrial fibrillation 2. Obstructive sleep apnea 3. Hypertension 4. Hypothyroidism 5. Dyslipidemia 6. Depression 7. COPD 8. Osteoarthritis 9. Osteopenia 10. Vitamin D deficiency 11. Right eye cataract Diagnostic Imaging: Transvaginal US: endometrial strip is abnormally thickened measuring 16mm. The left ovary contains 2 simple appearing cystic structures, the larger cyst measuring a maximum of 1.8cm. US aorta: no abdominal aortic aneurysm, right common iliac artery stenosis, no flow in left common iliac artery, atheromatous diseases seen. Pertinent Laboratory Results: INR>10 TW 13.8, Hb 16.1, plt 187 Electrolytes normal Liver function: normal Digoxin: 1.5 Hospital Course: Ms. Rhodes is a nice 74 years of posmenopausal female with history of Afiib on coumadin, presented with acute onset of vaginal bleeding. She was in her usual health until a few weeks ago, she felt dry mouth, decreased appetite, weight loss. She was also found to have increasing INR level, thus warfarin dose was decreased by her coumadin clinic, her last INR check was 1 week ago with reading 2.3. She denied any medication change in the past 1 month. Of note, she didn't have any cancer screen for decades, last pap smear was in 2011 with an abnormal result but she refused to follow up, no colonoscopy was done ever. She is an active smoker and had CT lung done within 5 years with no abnormal findings according to her. On the day of presentation, she was found to have supratherapeutic INR> 10, warfarin was stopped, and vitK was given to reverse warfarin. Pelvic examination was performed in ED suggested blood in vaginal vault and nodularity in the uterus. BODY FINISHER consult was called in ED who suggested outpatient management for her vaginal bleeding. She was closely monitored with supratherapeutic INR, she remained hemodynamically stable, no other bleeding other than vaginal bleeding. Her vaginal bleeding requiring only1 -2 pad changes within 24 hours since admission. Her Hb is dropping by 1g from 16.1 to 14.5. Her INR is 4.92 after warfarin reversal on the day of discharge. Instructed patient stopping warfarin for now and making appointment with [place] [facility] this Sunday. She also had existing appointment with her primary care in [place] coming Sunday. I also instructed her to get an appointment with Orthopedic Cast Specialist for further workup of vaginal bleeding which she agreed on and planned to find a [place] core extruder. I emphasized to her on age -appropriate screening and smoking cessation, she understood. Follow Up Instructions: Her warfarin was stopped, she will check her INR in coumadin clinic in [place] this Sunday. And she will see her primary care next Sunday for post discharge followup. She agreed to make an appointment with [place] core extruder for further workup. It will be important for her to do age appropriate cancer screening with her symptoms of REAL and LOW, and follow up with primary care. In case of an emergency or after clinic hours, please go to your nearest Emergency Department. You may also call the [facility] ammonia still operator at . Attestation Documenting Resident: Suha Hankins Supervising Physician: Mary Rollins Attestation: This service has been performed in part by a resident under the direction of a teaching physician.I, Mary Rollins, performed the service, or was physically present during the critical, or laguna portions of the service, furnished by the resident. I participated in the management of the patient.
== END 2019-05-28 16:58 | disposition home or self-care (01) ==
LOC: ED 15:23 → INTOOBSV 20:36 → MEDTELE 20:36
PROVIDERS: ADMIT Internal Medicine; ATTEND Internal Medicine
DX: N93.9 Abnormal uterine and vaginal bleeding, unspecified (principal); K59.00 Constipation, unspecified; F17.210 Nicotine dependence, cigarettes, uncomplicated; Z79.01 Long term (current) use of anticoagulants; I48.91 Unspecified atrial fibrillation; G47.33 Obstructive sleep apnea (adult) (pediatric); I10 Essential (primary) hypertension; E78.5 Hyperlipidemia, unspecified; E03.9 Hypothyroidism, unspecified; F32.9 Major depressive disorder, single episode, unspecified; J44.9 Chronic obstructive pulmonary disease, unspecified; M19.90 Unspecified osteoarthritis, unspecified site; M85.80 Other specified disorders of bone density and structure, unspecified site; E55.9 Vitamin D deficiency, unspecified; H25.011 Cortical age-related cataract, right eye; E53.9 Vitamin B deficiency, unspecified; R94.31 Abnormal electrocardiogram [ECG] [EKG]
CPT/HCPCS: 36415; 76775; 76830; 80048; 80053; 80162; 85025; 85610; 93005; 99284; A9270-GY; G0378

== ENCOUNTER 2019-07-24 15:58 | Emergency (ER) | payer MEDICARE, MEDICAID ==
--- OUTSIDE RECORDS SUMMARY | 2019-07-24 16:25 | XMS REPORT | Continuity of Care Document ---
:1945 External Reference #:[id number] Author Name Santa Epperson NP (transmitted by agent of provider Frances Davis) Address [address] [place] [id number] Care Team Providers Name Role Phone Leila Vallejo MD - Family Care Team Information Credit Correspondence Clerk Medicine Problems Active Problems Provider Date Benign [...] Start: Unknown Patient is a current smoker, 1PPD smokes every day Smoking Status Reviewed: 06/26/19 Patient is a current smoker, 1PPD smokes every day Exercise Type/Frequency Exercises rarely Allergies, Adverse Reactions, Alerts Active Allergies Reaction Severity Comments Date Bee Stings 04/03/2007 Medications Active Medications SIG Qnty Indications Ordering Date Provider Atorvastatin Calcium 1 by mouth every 90tabs E78.5 Santa Epperson, 2018 20mg day MECHANICAL MAINTENANCE SUPERVISOR Tablets Cardizem CD 1 by mouth daily 90caps Rodolfo Yen 06/20/2019 120mg Caps ERICA Landis M.D. 24HR Potassium Citrate ER one po qd as Rodolfo Yen 07/21/2014 10Meq needed (with Delano Landis (1080 mg) Tablets ER potassium) Proair HFA 2 puffs po q4h 1units [...] 4 - 6 40tabs Other Ordering 02/20/2013 Hydrochloride/Acetamino hours prn pain Provider phen 37.5-325mg Tablets Jobst Relief Calf High 1 pair daily 2units Rodolfo Yen 08/08/2010 Closed Toe/Medium Delano Landis Large Size Misc Coumadin 1 po tiw 60tabs Rodolfo Yen 04/03/2007 5mg Tablets (mon-wed-fri) 1/2 Delano Landis po warren quintero sat, sun. [facility] Benadryl 1 PO prn Rodolfo Yen 04/03/2007 25mg Capsules Delano Landis Sertraline HCL 2 tabs PO qd Unknown 100mg Tablets Lasix 2 by mouth as 34tabs Rodolfo Yen 20mg Tablets needed Delano Landis Cyclobenzaprine HCL 1 tab by mouth 30tabs Unknown 10mg three times a day Tablets prn Metoprolol Succinate ER 1 by mouth twice Unknown daily 25mg Tablets ER 24HR Levothyroxine Sodium 1 by mouth every Unknown 150mcg day Tablets History Medications Digoxin 1 by mouth every 90tabs Rodolfo Landis, 06/20/2019 - 125mcg day Delano 06/26/2019 Tablets Immunizations Description No Information Available Vital Signs Date Vital Result Comment 06/26/2019 12:48pm Height 60 inches 5'0" Weight 167.12 lb with shoes Heart Rate 76 /min left radial BP Systolic Sitting 146 mmHg Lue, reg cuff BP Diastolic Sitting 78 mmHg Lue, reg cuff BP Systolic Standing 138 mmHg Lue, reg cuff BP Diastolic Standing 76 mmHg Lue, reg cuff BMI (Body Mass Index) 32.6 kg/m2 Ejection Fraction 60%-65% echocardiogram 06/04/2019 05/15/2019 1:18pm Height 60 inches 5'0" Heart Rate 88 /min left radial BP Systolic Sitting 150 mmHg ule reg cuff BP Diastolic Sitting 72 mmHg ule reg cuff O2 % BldC Oximetry 95 % Ejection Fraction 55-60% Echo 08/22/18 Results Description No Information Available Procedures Date Code Description Status 06/20/2019 60172 Treadmill Interp/Report Only Completed 06/20/2019 70536 Stress Test Supervsn W/Out I/R Completed 06/04/2019 67405 ECHO Transthoracic, Real-Time 2D With Doppler And Color Completed Flow 06/04/2019 73324 ECHO Transthoracic, Real-Time 2D With Doppler And Color Completed Flow 05/15/2019 06301 EKG Tracing & Interpretation Completed Medical Devices Description No Information Available Encounters Type Date Location Provider Dx Diagnosis Office Visit 05/28/2019 [facility] Mary Rollins, N93.9 Abnormal uterine 12:04p aislinn Sandy MD and vaginal Hospitalists bleeding, unspecified R79.1 Abnormal coagulation profile Office Visit 05/27/2019 [facility] Elisabeth Davis N93.9 Abnormal uterine 12:03p aislinn Sandy M.D. and vaginal Hospitalists bleeding, unspecified R79.1 Abnormal coagulation profile Z79.01 termination clerk (current) use of anticoagulants Office Visit 05/15/2019 1:00p [facility] Santa Epperson, I35.0 Nonrheumatic MECHANICAL MAINTENANCE SUPERVISOR aortic (valve) stenosis I10 Essential (primary) hypertension I42.9 Cardiomyopathy, unspecified R94.31 Abnormal electrocardiogram [ECG] [EKG] I48.21 Permanent atrial fibrillation Assessments Date Code Description Provider 06/26/2019 I35.0 Nonrheumatic aortic (valve) stenosis Santa Epperson NP 06/26/2019 I48.21 Permanent atrial fibrillation Santa Epperson NP 06/26/2019 Z79.01 termination clerk (current) use of anticoagulants Santa Epperson NP 06/26/2019 I10 Essential (primary) hypertension Santa Epperson NP 06/26/2019 R00.1 Bradycardia, unspecified Santa Epperson NP 06/26/2019 E78.5 Hyperlipidemia, unspecified Santa Epperson NP 06/04/2019 I35.0 Nonrheumatic aortic (valve) stenosis Rodolfo Landis M.D. 06/04/2019 I35.0 Nonrheumatic aortic (valve) stenosis [facility] Schedule 05/28/2019 N93.9 Abnormal uterine and vaginal bleeding, Mary Rollins MD unspecified 05/28/2019 R79.1 Abnormal coagulation profile Mary Rollins MD 05/27/2019 N93.9 Abnormal uterine and vaginal bleeding, Elisabeth Davis M.D. unspecified 05/27/2019 R79.1 Abnormal coagulation profile Elisabeth Davis M.D. 05/27/2019 Z79.01 retirement (current) use of anticoagulants Elisabeth Davis M.D. 05/15/2019 I48.21 Permanent atrial fibrillation Rodolfo Landis M.D. 05/15/2019 I35.0 Nonrheumatic aortic (valve) stenosis Santa Epperson NP 05/15/2019 R94.31 Abnormal electrocardiogram [ECG] [EKG] Rodolfo Landis M.D. 05/15/2019 I10 Essential (primary) hypertension Santa Epperson NP 05/15/2019 I42.9 Cardiomyopathy, unspecified Santa Epperson NP 05/15/2019 R94.31 Abnormal electrocardiogram [ECG] [EKG] Santa Epperson NP 05/15/2019 I48.21 Permanent atrial fibrillation Santa Epperson NP Plan of Treatment Future Appointment(s):08/08/2019 1:00 pm - Santa Epperson NP at [facility]07/28/2019 9:00 am - Nurse Visit IC at [facility]2018 11:30 am - Nurse Visit IC at [facility]07/02/2019 11:30 am - Nurse Visit cc at [facility]06/26/2019 - Santa Thuman, NPI35.0 Nonrheumatic aortic (valve) stenosisFollow up:follow up in month with myself or Dr. Raoommendations:your aortic valve narrowing has progressed since your last study in Aug 2018. Given you are not manifesting symptoms of severe aortic stenosis such as dizziness, passing out, chest pain, heart failure. I would like to repeat your study in 6 months. OF note if you do develop dizziness, syncope( passing out), chest pain , heart failure please call me and seek medical evaluation.I48.21 Permanent atrial hwiwliwwlpjkD20.01 retirement ( current) use of qxohvraloyzjdvN53 Essential (primary) aamgkawbqmotH93.1 Bradycardia, unspecifiedNew Orders:Holter Monitor, Ordered: Recommendations:Please stop Digoxin. I will order a 24 hour holter monitor to ensure your heart rate remains controlled off of Digoxin.E78.5 Hyperlipidemia , unspecifiedNew Medication:Atorvastatin Calcium 20 mg - 1 by mouth every day Functional Status Description No Information Available Mental Status Description No Information Available Referrals Description No Information Available
--- OUTSIDE RECORDS SUMMARY | 2019-07-24 16:25 | XMS REPORT | Continuity of Care Document ---
:1945 External Reference #:[id number] Author Name Aquilino Ramírez Care Team Providers Name Role Phone Leila Vallejo MD - Family Care Team Information Operational Review Sergeant [phone] Medicine Problems Active Problems Provider Date Benign [...] Medications SIG Qnty Indications Ordering Date Provider Josefa CD 1 by mouth every 90caps Rodolfo Yen 06/20/2019 120mg Caps ER other day Delano Landis 24HR Digoxin 1 by mouth every 90tabs Rodolfo Yen 06/20/2019 125mcg Tablets day Delano Landis Potassium Citrate ER one po qd as [...] 5mg Tablets (mon-wed-sun) 1/2 Delano Landis po tues, thguerrero, shahnaz, sun. [place] [facility] Benadryl 1 PO prn Rodolfo Yen 04/03/2007 25mg Capsules Delano Landis Sertraline HCL 2 tabs PO qd Unknown 100mg Tablets Lasix 2 by mouth as 34tabs Rodolfo Yen 20mg Tablets needed Delano Landis Cyclobenzaprine HCL 1 tab by mouth 30tabs Unknown 10mg three times a day Tablets prn Levothyroxine Sodium 1 po qd Unknown 200mcg Tablets Metoprolol Succinate ER 1 by mouth twice Unknown daily 25mg Tablets ER 24HR Atorvastatin Calcium [...] Available Procedures Date Code Description Status 06/20/2019 35482 Treadmill Interp/Report Only Completed 06/20/2019 76068 Stress Test Supervsn W/Out I/R Completed 06/04/2019 67794 ECHO Transthoracic, Real-Time 2D With Doppler And Color Completed Flow 06/04/2019 47133 ECHO Transthoracic, Real-Time 2D With Doppler And Color Completed Flow 05/15/2019 40171 EKG Tracing & Interpretation Completed Medical Devices Description No Information Available Encounters Type Date Location Provider Dx Diagnosis Office Visit 05/28/2019 [facility] Mary Rollins, N93.9 Abnormal uterine 12:04p aislinn Sandy MD and vaginal Hospitalists bleeding, unspecified R79.1 Abnormal coagulation profile Office Visit 05/27/2019 [facility] Elisabeth Davis N93.9 Abnormal uterine 12:03p aislinn Sandy M.D. and vaginal Hospitalists bleeding, unspecified R79.1 Abnormal coagulation profile Z79.01 skilled nursing (current) use of anticoagulants Office Visit 05/15/2019 1:00p [facility] Santa Thuman, I35.0 Nonrheumatic PROFESSOR OF LANGUAGES aortic (valve) stenosis I10 Essential (primary) hypertension I42.9 Cardiomyopathy, unspecified R94.31 Abnormal electrocardiogram [ECG] [EKG] I48.21 Permanent atrial fibrillation Assessments Date Code Description Provider 06/04/2019 I35.0 Nonrheumatic aortic (valve) stenosis Rodolfo Landis M.D. 06/04/2019 I35.0 Nonrheumatic aortic (valve) stenosis [place] [facility] Schedule 05/28/2019 N93.9 Abnormal uterine and vaginal bleeding, Mary Rollins MD unspecified 05/28/2019 R79.1 Abnormal coagulation profile Mary Rollins MD 05/27/2019 N93.9 Abnormal uterine and vaginal bleeding, Elisabeth Davis M.D. unspecified 05/27/2019 R79.1 Abnormal coagulation profile Elisabeth Davis M.D. 05/27/2019 Z79.01 manager terminal (current) use of anticoagulants Elisabeth Davis M.D. [...] fibrillation Santa Epperson NP Plan of Treatment 05/15/2019 - Santa Epperson NPI35.0 Nonrheumatic aortic (valve) clcnwdhpK55 Essential (primary) dxkuubbszhyeM63.9 Cardiomyopathy, zxpiiuxovkvD71.31 Abnormal electrocardiogram [ECG] [EKG]Follow up:follow up after cardiac zsskfzgP47.21 Permanent atrial fibrillation Functional Status Description No Information Available Mental Status Description No Information Available Referrals Description No Information Available
--- OUTSIDE RECORDS SUMMARY | 2019-07-24 16:25 | XMS REPORT | Summary of Care ---
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 Postmenopausal bleeding Leila Vallejo MD [address] [place] [address] Reason for Visit Reason Comments Follow Up test results Encounter Details Date Type Department Care Team Description 07/16/2019 Office Visit [facility], Postmenopausal bleeding ( Primary Dx); Practice MD Leila Acquired hypothyroidism; [address] [address] [place] [address] Weight loss; [place] [address] [place] [address] Atrial fibrillation, unspecified type ([facility]) [phone] Allergies Active Allergy Reactions Severity Noted Date Comments Bee Sting Dermatologic Reaction 03/03/2008 documented as of this encounter (statuses as of 07/16/2019) Medications Medication Sig Dispensed Refills Start Date End Date Status furosemide (LASIX) 20 Take 2 Tabs by [...] 04/16/2018 Active Inhalation Cap MOUTH ONCE DAILY PROAIR HFA 108 (90 Base) INHALE 2 PUFFS BY MOUTH 3 Inhaler 1 11/11/2018 Active MCG/ACT Inhalation Aero Soln EVERY 4 HOURS NEEDED FOR WHEEZING Vitamin D, Ergocalciferol, Take 50,000 Units by 4 Cap 3 03/21/2019 Active (ERGOCALCIFEROL) 20455 units mouth DAILY. Oral Cap Additional information Patient taking differently: 50,000 Units Oral Q7DAYS, Reported on 06/03/2019 1:55 PM metoprolol succinate (TOPROL Take 1 Tab by mouth TWICE 180 Tab 1 2018 Active XL) 25 MG Oral TABLET SR 24 HR DAILY. sertraline (ZOLOFT) 100 MG TAKE 2 TABLETS BY MOUTH 180 Tab 1 04/28/2019 Active Oral Tab AT BEDTIME tramadol (ULTRAM) 50 MG Oral Take 1 Tab by mouth EVERY 60 Tab 0 05/15/2019 Active Tab SIX HOURS NEEDED (pain). Max Daily Amount: 200 mg. levothyroxine (SYNTHROID) 150 Take 1 Tab by mouth 30 Tab 2 05/17/2019 Active MCG Oral Tab BEFORE BREAKFAST. alendronate (FOSAMAX) 70 MG TAKE 1 TABLET BY MOUTH 12 Tab 1 05/22/2019 Active Oral Tab ONCE A WEEK warfarin (COUMADIN) 2.5 MG Take 0.5-1 Tabs by mouth 30 Tab 2 06/24/2019 Active Oral TabIndications: Atrial DAILY. As directed fibrillation, unspecified type (HCC) CARTIA XT 120 MG Oral CAPSULE TAKE 1 CAPSULE BY MOUTH 3 06/20/2019 Active SR 24 HR ONCE DAILY atorvastatin (LIPITOR) 10 MG Take 2 Tabs by mouth 90 Tab 1 06/27/2019 Active Oral Tab DAILY. documented as of this encounter (statuses as of 07/16/2019) Active Problems Problem Noted Date Depression 09/26/2016 Atrial fibrillation, unspecified type 10/14/2015 HTN (hypertension) 07/17/2014 BMI 45.0-49.9, adult 07/17/2014 Cervical dysplasia 05/30/2012 Osteoporosis 04/26/2012 COPD (chronic obstructive pulmonary disease) 03/04/2012 DJD (degenerative joint disease) 03/04/2012 ANDRESSA (obstructive sleep apnea) 11/01/2010 Overview: Wearing cpap mask Since 08/2009 Hypothyroid 11/01/2010 Overview: Status post AHUJA ~1995 Asthma 03/16/2008 halfway current use of anticoagulant therapy 08/22/2007 Overview: Managed by: [facility] Referring Provider: Pita Indication: Afib Target Range: 2.0-3.0 Duration: Indefinite Additional factors influencing anticoagulation: CHADS2 score of 1 for hypertension [id number] score of 3 for age > 65, hypertension, female gender. Diltiazem increases warfarin effect Levothyroxine increases warfarin effect Sertraline increases warfarin level Updated Referral: 12/2011, 01/2013, 07/21/14, 11/2015, 01/29/17, 08/2018 AntiCoag Orders 01/21/2013, 07/22/14, 11/18/15, 03/26/17, 08/27/18 Tobacco use disorder 04/02/2007 Cardiomyopathy Aortic stenosis Overview: moderate to severe 06/2019 documented as of this encounter (statuses as of 07/16/2019) Resolved Problems Problem Noted Date Resolved Date A-fib 07/22/2014 06/13/2019 Atrial fibrillation 07/06/2005 06/13/2019 Overview: Chronic; cath 2007 Dr Perry documented as of this encounter (statuses as of 07/16/2019) Immunizations Name Administration Dates Next Due H1N1 [...] or relatives? How often do you attend jew or Not asked tenriism services? Do you belong to any clubs or Not asked organizations such as jew groups, [employer], [employer] or athletic groups, or school groups? How [...] Sign Reading Time Taken Comments Blood Pressure 132/72 07/16/2019 9:47 AM EST Pulse 60 07/16/2019 9:47 AM EST Temperature 36.8 07/16/2019 9:47 AM C (98.2 EST F) Respiratory Rate - - Oxygen Saturation 97% 07/16/2019 9:47 AM EST Inhaled Oxygen Concentration - - Weight 71.2 kg (156 lb 14.4 oz) 07/16/2019 9:47 AM EST Height - - Body Mass Index 31.69 06/03/2019 1:15 PM EDT documented in this encounter Patient Instructions Patient InstructionsLeila Vallejo MD - 07/16/2019 9:20 AM EST1. Schedule appointment with Community Resource Officer oncology documented in this encounter Progress Notes Leila Vallejo MD - 07/16/2019 9:20 AM EST Patient: Kae Rhodes Date of Service: 07/16/2019 Subjective: Kae Rhodes is a 74-y.o. female who presents for Chief Complaint Patient presents with Follow Up test results Patient comes follow up post menopausal bleeding, fatigue, weight loss Has appointment with ADVERTISING CLERK tomorrow Continues to have poor appetite, loosing weight Past Medical History: Diagnosis Date Aortic stenosis moderate to severe 06/2019 Asthma 03/16/2008 Atrial fibrillation (HCC) 07/06/2005 Back pain Cardiomyopathy (HCC) COPD (chronic obstructive pulmonary disease) (HCC) DJD (degenerative joint disease) 03/04/2012 History of breast surgery rt breast bx benign Hypertension Hypothyroidism Obesity Osteoporosis Ovarian cancer (HCC) Sleep apnea CPAP / HS Outpatient Medications as of 07/16/2019 Medication Sig Dispense Refill alendronate (FOSAMAX) 70 MG Oral Tab TAKE 1 TABLET BY MOUTH ONCE A WEEK 12 Tab 1 atorvastatin (LIPITOR) 10 MG Oral Tab Take 2 Tabs by mouth DAILY. 90 Tab 1 CARTIA XT 120 MG Oral CAPSULE SR 24 HR TAKE 1 CAPSULE BY MOUTH ONCE DAILY 3 cyclobenzaprine (FLEXERIL) 10 MG Oral Tab Take 1 Tab by mouth THREE TIMES DAILY NEEDED forMuscle Spasm . 90 Tab 1 FLOVENT HFA 110 MCG/ACT Inhalation Aerosol INHALE TWO PUFFS BY MOUTH TWICE DAILY 3 Inhaler 1 furosemide (LASIX) 20 MG Oral Tab Take 2 Tabs by mouth EVERY OTHER DAY. Pt taking 2 tabs QOD prn (Patient taking differently: Take 40 mg by mouth NEEDED. Pt taking 2 tabs QOD prn) 90 Tab 1 levothyroxine (SYNTHROID) 150 MCG Oral Tab Take 1 Tab by mouth BEFORE BREAKFAST. 30 Tab 2 metoprolol succinate (TOPROL XL) 25 MG Oral TABLET SR 24 HR Take 1 Tab by mouth TWICE DAILY. 180 Tab 1 potassium chloride (KLOR-CON SPRINKLE) 10 MEQ Oral Cap CR Take 1 Cap by mouth DAILY. 60 Cap 0 PROAIR HFA 108 (90 Base) MCG/ACT Inhalation Aero Soln INHALE 2 PUFFS BY MOUTH EVERY 4 HOURS NEEDED FOR WHEEZING 3 Inhaler 1 sertraline (ZOLOFT) 100 MG Oral Tab TAKE 2 TABLETS BY MOUTH AT BEDTIME 180 Tab 1 SPIRIVA HANDIHALER 18 MCG Inhalation Cap INHALE ONE DOSE BY MOUTH ONCE DAILY 90 Cap 1 tramadol (ULTRAM) 50 MG Oral Tab Take 1 Tab by mouth EVERY SIX HOURS NEEDED (pain). Max Daily Amount: 200 mg. 60 Tab 0 Vitamin D, Ergocalciferol, (ERGOCALCIFEROL) 45512 units Oral Cap Take 50, 000 Units by mouth DAILY. (Patient taking differently: Take 50,000 Units by mouth EVERY 7 DAYS.) 4 Cap 3 warfarin (COUMADIN) 2.5 MG Oral Tab Take 0.5-1 Tabs by mouth DAILY. As directed 30 Tab 2 No current facility-administered medications on file as of 07/16/2019. Allergies Allergen Reactions Bee Stings [Bee Sting] Dermatologic Reaction Review of Systems: All remaining review of systems was negative. Objective: BP 132/72 (BP Location: Left arm, Patient Position: Sitting) Pulse 60 Temp 98.2 F (36.8 C) Wt 156 lb 14.4 oz (71.2 kg) SpO2 97% BMI 31.69 kg/m2 GENERAL: alert, fatigued THROAT: lips, mucosa, and tongue normal: teeth and gums normal NECK: supple, symmetrical, trachea midline and no adenopathy LUNGS: clear to auscultation bilaterally HEART: irregularly irregular rhythm CT chest/abdomen/pelvis: 1. Mild pulmonary emphysema. 2. Large, necrotic mass in the lower uterine segment and cervix is suspicious for malignant tumor. 3. Compression and obstruction of the left ureter. Patient advised on tests results ICD-9-CM ICD-10-CM 1. Postmenopausal bleeding Likely malignancy Will refer to Community Resource Officer oncology 627.1 N95.0 CBC WITH DIFFERENTIAL 2. Acquired hypothyroidism 244.9 E03.9 THYROID STIMULATING HORMONE FREE T4 3. Weight loss 783.21 R63.4 COMPREHENSIVE METABOLIC PANEL 4. Atrial fibrillation, unspecified type (HCC) 427.31 I48.91 PROTHROMBIN TIME CANCELED: HEMOGLOBIN & HEMATOCRIT Patient Instructions 1. Schedule appointment with Community Resource Officer oncology Author: Leila Vallejo MD documented in this encounter Plan of Treatment Date Type Specialty Care Team Description 07/17/2019 AntiCoag Anticoagulation 01/12/2020 Chronic Care Management Family Practice Name Type Priority Associated Diagnoses Date/Time COMPREHENSIVE METABOLIC Lab Routine Weight loss 07/16/2019 10:30 AM PANEL EST THYROID STIMULATING Lab Routine Acquired hypothyroidism 07/16/2019 10:30 AM HORMONE EST FREE T4 Lab Routine Acquired hypothyroidism 07/16/2019 10:30 AM EST CBC WITH DIFFERENTIAL Lab STAT Postmenopausal bleeding 07/16/2019 10:30 AM EST PROTHROMBIN TIME Lab STAT Atrial fibrillation, 07/16/2019 10:30 AM unspecified type (HCC) EST Name Type Priority Associated Diagnoses Order Schedule REFER TO OB / ADVERTISING CLERK Referral Routine Postmenopausal bleeding Expected: 2018, Expires: 07/16/2020 Health Maintenance Due Date Last Done Comments DTaP/Tdap/Td Vaccines ( - 1956 Tdap) PNEUMOCOCCAL 65+YRS (2 of 2 09/26/2017 09/26/2016, 04/02/2012 - PPSV23) DEPRESSION SCREENING 01/07/2020 01/06/2019, 01/02/2019 FALL RISK ASSESSMENT 01/07/2020 01/06/2019, 01/06/2019 MEDICARE ANNUAL WELLNESS 01/07/2020 01/06/2019 VISIT MAMMOGRAM (SCREENING) 01/15/2020 01/14/2019, 10/07/2015, 03/18/2014, Additional history exists LIPID DISORDER SCREENING 06/27/2020 06/27/2019, 06/23/2019, 04/22/2019, Additional history exists ZOSTER IMMUNIZATION SERIES 07/16/2020 Postponed from (1 of 2) 1997 (Vaccine not available) OSTEOPOROSIS SCREENING 01/14/2029 01/14/2019, 04/11/2012, 04/11/2012 INFLUENZA VACCINE Completed 04/22/2019, 05/27/2018, 07/06/2017, Additional history exists HEPATITIS A IMMUNIZATION Aged Out No longer eligible SERIES based on patient's age to complete this topic HPV IMMUNIZATION SERIES Aged Out No longer eligible based on patient's age to complete this topic MENINGOCOCCAL VACCINE IMM Aged Out No longer eligible based on patient's age to complete this topic documented as of this encounter Goals Goal Patient Goal Associated Recent Patient-Stated? Author Type Problems Progress Blood Pressure Blood Pressure HTN 132/72 No [place]ieve, < 140/90 (hypertension) (07/16/2019 Leila, 9:47 AM EST) Note: Hypertension Care Plan Based on the [...] Educational Resources. record my blood pressure results. [employer] is safe and secure way for you [...] Educational Resources: National Heart, Lung, & Blood Arlee http://nhlbi.nih.gov/hbp/index.html The DASH Diet Eating Plan http://www.nhlbi.nih.gov/health/health-topics/ topics/dash/ Academy of Nutrition & DIetetics http://eatright.org National Smoking Cessation Site http://smokefree.gov Blood Pressure < Blood Pressure 132/72 (07/16/2019 Leila Rivera, 140/90 9:47 AM EST) Note: This is an individualized treatment (blood [...] counseling Weight loss vs. 18 mo Lifestyle 87.1 (07/16/2019 9:47 AM No Leila Vallejo MD max (lbs) >= 10 EST) Note: This is an individualized lifestyle goal [...] is an individualized lifestyle goal for Kae M Meagan: Please be sure to keep up-to-date on [...] filedocumented in this encounter Visit Diagnoses Diagnosis Postmenopausal bleeding Acquired hypothyroidism Unspecified hypothyroidism Weight loss Loss of weight Atrial fibrillation, unspecified type (HCC) documented in this encounter Insurance Payer Benefit Plan / Subscriber ID Effective Phone Address Type Group Dates UHC MEDICARE UNITED xxxxxxxxx 2018-Prese UHC ADVANTAGE HEALTHCARE nt MEDICARE ADV[place] xxxxxxxx 2016-Prese Medicaid [place] nt Guarantor Name Account Type Relation to Date of Phone Billing Address Patient Kae Rhodes Personal/Family 1945 [address] [facility] (Home) [place], [place] [phone] [id number] (Work) documented as of this encounter
--- OUTSIDE RECORDS SUMMARY | 2019-07-24 16:26 | XMS REPORT | Continuity of Care Document ---
:1945 External Reference #:[id number] Author Name [facility] (transmitted by agent of provider Frances Davis) Address [address] [place] [address] Care Team Providers Name Role Phone Leila Vallejo MD - Family Care Team Information Rails Developer [phone] Medicine Problems Active Problems Provider Date Benign [...] tiw 60tabs Rodolfo Yen 04/03/2007 5mg Tablets (sun-wed-sun) 1/2 Delano Landis po ingrid, warren, monalisa christie. [facility] Benadryl 1 PO prn Rodolfo [...] kg/m2 Ejection Fraction 55-60% echo 10/20/15 Results Test Acquired Date Facility Test Result H/L Range Note Order 06/04/2019 [facility] <pending> [address] [place] [address] [phone] Procedures Date Code Description Status 06/04/2019 31917 ECHO Transthoracic, Real-Time 2D With Doppler And Color Completed Flow 05/15/2019 12538 EKG Tracing & Interpretation Completed Medical Devices Description No Information Available Encounters Type Date Location Provider Dx Diagnosis Office Visit 05/15/2019 [facility] Thuman, I35.0 Nonrheumatic aortic 1:00p RECEIVING COORDINATOR (valve) stenosis I10 Essential (primary) hypertension I42.9 Cardiomyopathy, unspecified R94.31 Abnormal electrocardiogram [ECG] [EKG] I48.21 Permanent atrial fibrillation Assessments Date Code Description Provider 06/04/2019 I35.0 Nonrheumatic aortic (valve) stenosis [facility] Schedule 05/15/2019 I48.21 Permanent atrial fibrillation Rodolfo Landis M.D. 05/15/2019 I35.0 Nonrheumatic aortic (valve) stenosis Santa Epperson NP 05/15/2019 R94.31 Abnormal electrocardiogram [ECG] [EKG] Rodolfo Landis M.D. 05/15/2019 I10 Essential (primary) hypertension Santa Epperson NP 05/15/2019 I42.9 Cardiomyopathy, unspecified Santa Epperson RECEIVING COORDINATOR 05/15/2019 R94.31 Abnormal electrocardiogram [ECG] [EKG] Santa Epperson NP 05/15/2019 I48.21 Permanent atrial fibrillation Santa Epperson NP Plan of Treatment Future Appointment(s):06/26/2019 1:00 pm - Santa Epperson NP at [facility]06/20/2019 8:30 am - Rodolfo Landis M.D. at [facility]05/2019 - Santa Epperson NPI35.0 Nonrheumatic aortic (valve) [id number] Essential (primary) ibgcsymayjnpV39.9 Cardiomyopathy, nzczhhnccvmV98.31 Abnormal electrocardiogram [ECG] [EKG]New Orders:Stress Test, Pharmacologic Nuclear (Lexiscan), Scheduled: 06/20/19Follow up:follow up after cardiac pyimtssX54.21 Permanent atrial fibrillation Functional Status Description No Information Available Mental Status Description No Information Available Referrals Description No Information Available
--- OUTSIDE RECORDS SUMMARY | 2019-07-24 16:26 | XMS REPORT | Summary of Care ---
:1945 Author Organization [facility] Address [address] [facility] [place] [address] Care Team Providers Name Role Phone RafatoneRadhaLeila Primary Care Provider Reason for Visit Reason Comments GI Problem New pt. referred by Mary Huang for chronic constipation, weight loss due to poor appetite, refuses colonoscopy. Refer to Department Only (Routine) Status Reason Specialty Diagnoses / Referred By Referred To Procedures Contact Contact Pending Review Gastroenterology Diagnoses Constipation, unspecified constipation type Kate Huang FNP Gastroenterolo [address] [place] [place] [address] [address] [place], [place] Phone: [phone] Phone: Encounter Details Date Type Department Care Team Description 06/03/2019 Office Visit Kate Lopez, Linda, Gastroenterology/Hepa Velia Bower NP unspecified tology 1 [place] constipation type [address] [place] [address] (Primary Dx) [place] [address] [phone] Allergies Active Allergy Reactions Severity Noted Date Comments Bee Sting Dermatologic Reaction 03/03/2008 documented as of this encounter (statuses as of 06/03/2019) Medications Medication Sig Dispensed Refills Start Date [...] Soln EVERY 4 HOURS NEEDED FOR WHEEZING atorvastatin (LIPITOR) 10 MG TAKE 1 TABLET BY MOUTH 90 Tab 1 02/07/2019 Active Oral Tab ONCE DAILY Vitamin D, Ergocalciferol, Take 50,000 Units by 4 Cap 3 03/21/2019 Active (ERGOCALCIFEROL) 24441 units mouth DAILY. Oral Cap Additional information Patient taking differently: 50,000 Units Oral Q7DAYS, Reported on 06/03/2019 1:55 PM digoxin (LANOXIN, TAKE 1 TABLET 90 Tab 1 04/03/2019 Active DIGITEK) 250 MCG Oral BY MOUTH ONCE Tab DAILY metoprolol succinate Take 1 Tab by 180 Tab 1 04/10/2019 Active (TOPROL XL) 25 MG mouth TWICE Oral TABLET SR 24 HR DAILY. sertraline (ZOLOFT) TAKE 2 TABLETS 180 Tab 1 04/28/2019 Active 100 MG Oral Tab BY MOUTH AT BEDTIME tramadol (ULTRAM) 50 Take 1 Tab by 60 Tab 0 05/15/2019 Active MG Oral Tab mouth EVERY SIX HOURS NEEDED (pain). Max Daily Amount: 200 mg. levothyroxine Take 1 Tab by 30 Tab 2 05/17/2019 Active (SYNTHROID) 150 MCG mouth BEFORE Oral Tab BREAKFAST. alendronate (FOSAMAX) TAKE 1 TABLET 12 Tab 1 05/22/2019 Active 70 MG Oral Tab BY MOUTH ONCE A WEEK warfarin (COUMADIN) 5 Take 0.5 Tabs 90 Tab 3 04/28/2019 06/03/20 Discontinued (Dose MG Oral by mouth DAILY. 19 Adjustment) TabIndications: 2.5mg daily Atrial fibrillation, unspecified type (HCC) documented as of this encounter (statuses as of 06/03/2019) Active Problems Problem Noted Date Depression 09/26/2016 Atrial fibrillation, unspecified type 10/14/2015 A-fib 07/22/2014 HTN (hypertension) 07/17/2014 BMI 45.0-49.9, adult 07/17/2014 Cervical dysplasia 05/30/2012 Osteoporosis 04/26/2012 COPD (chronic obstructive pulmonary disease) 03/04/2012 DJD (degenerative joint disease) 03/04/2012 ANDRESSA (obstructive sleep apnea) 11/01/2010 Overview: Wearing cpap mask Since 08/2009 Hypothyroid 11/01/2010 Overview: Status post AHUJA ~1994 Asthma 03/16/2008 nursing home current use of anticoagulant therapy 08/22/2007 Overview: Managed by: [facility] Referring Provider: Pita Indication: Afib Target Range: 2.0-3.0 Duration: Indefinite Additional factors influencing anticoagulation: CHADS2 score of 1 for hypertension [id number] score of 3 for age > 65, hypertension, female gender. Diltiazem increases warfarin effect Levothyroxine increases warfarin effect Sertraline increases warfarin level Updated Referral: 12/2011, 01/2013, 07/21/14, 11/2015, 01/29/17, 08/2018 AntiCoag Orders 01/21/2013, 07/22/14, 11/18/15, 03/26/17, 08/27/18 Tobacco use disorder 04/02/2007 Atrial fibrillation 07/06/2005 Overview: Chronic; cath 2006 Dr Perry Cardiomyopathy documented as of this encounter (statuses as of 06/03/2019) Immunizations Name Administration Dates Next Due H1N1 [...] or relatives? How often do you attend faith or Not asked sikhism services? Do you belong to any clubs or Not asked organizations such as faith groups, unions, fraternal or athletic groups, or [...] Sign Reading Time Taken Comments Blood Pressure 110/60 06/03/2019 1:10 PM EDT Pulse 64 06/03/2019 1:10 PM EDT Temperature 37.1 06/03/2019 1:10 PM EDT C (98.7 F) Respiratory Rate - - Oxygen Saturation - - Inhaled Oxygen Concentration - - Weight 80.7 kg (178 lb) 06/03/2019 1:10 PM EDT Height 149.9 cm (4' 11") 06/03/2019 1:10 PM EDT Body Mass Index 35.95 06/03/2019 1:10 PM EDT documented in this encounter Patient Instructions Patient InstructionsVelia Lopez NP - 06/03/2019 1:40 PM EDT1. Will await the CT results of the test Dr. Amanda nagy ordered Preventive measures against dry mouth include: ?Maintenance of good hydration by taking regular sips of water, drinking sugar- free liquids, and avoidance of oral irritants (eg, coffee, alcohol, and nicotine ). ?Avoidance of oral desiccants (eg, coffee, alcohol, tobacco and cannabis smoke). ?Avoidance of medications that may worsen oral dryness, especially those with anticholinergic side effects. These include [id number] cold and sleep remedies and other agents. ?Maintenance of open nasal passages to avoid mouth breathing. ?Avoidance of low-humidity environments, such as air-conditioned stores, centrally heated houses, and airplanes; and the use of humidifiers to maintain adequate humidity, particularly at night. Consider a dry mouth mouthwash which is available in the toothpaste isle of your local grocery or pharmacy 2. May continue to use the stool softener 3. Follow up after your CT scan Thank you for choosing the [facility] for your needs today! -Velia Lopez N.P. , Please call if you need to cancel or change your appt. time. Thank you for choosing [facility] for your health care needs, and for consulting with [facility] today. You may receive a survey following this visit, or after an upcoming hospital stay. As easy as it is to feel overloaded with surveys, we are required to send them out randomly and they do provide important feedback so that we may serve your needs in the best way. Please do take the few minutes required to complete the survey if you receive one. We get them too, after seeing the doctor, and they only take a few minutes to complete. documented in this encounter Progress Notes Velia Lopez NP - 06/03/2019 1:40 PM EDT PATIENT: Kae Rhodes : 1945 DATE OF SERVICE: 06/03/2019 REFERRING PRACTITIONER: Mary Huang PRIMARY CARE PROVIDER: Leila Vallejo CHIEF COMPLAINT: Chief Complaint Patient presents with GI Problem New pt. referred by Mary Huang for chronic constipation, weight loss due to poor appetite, refuses colonoscopy. Subjective HISTORY OF PRESENT ILLNESS: Kae Rhodes is a 74-y.o. female who presents for a consultation. She reports anorexia, constipation and dry mouth. Onset was several months ago. Symptoms have been gradually worsening. Associated signs and symptoms: weight loss of 50 lbs in 4 months. She admits that she has no desireto eat and when she forces her self to eat her dry mouth prohibits her from eating a full meal. Patient denies arthralgias, bright red blood per rectum, chills, dysuria, fever , flatus, frequency, headache, hematochezia, hematuria, melena, myalgias, nausea , pneumaturia, sweats, vomiting, symptoms of obstruction and symptoms of anemia. Previous visits for these symptoms: multiple, this is a diagnosis of longstanding. Last seen a fewdays ago by emergency department at [facility] with vaginal bleeding, her PCP today. Evaluation to date: CT is pending. Treatment to date: she is using colace and occasional Miralax per her PCP recommendations. The referring provider's recommended test(s) and treatment(s) to date have been reviewed. Past Medical History: Diagnosis Date Asthma 03/16/2008 Atrial fibrillation (HCC) 07/06/2005 Back pain Cardiomyopathy (HCC) COPD (chronic obstructive pulmonary disease) (HCC) DJD (degenerative joint disease) 03/04/2012 History of breast surgery rt breast bx benign Hypertension Hypothyroidism Obesity Osteoporosis Ovarian cancer (HCC) Sleep apnea CPAP / HS Past Surgical History: Procedure Laterality Date CHARGE COMPLETE THYROIDECTOMY 2 OR THREE YEARS AGO US BREAST BIOPSY GUIDANCE Family History Problem Relation Age of Onset [...] taking 2 tabs QOD prn) levothyroxine (SYNTHROID) 150 MCG Oral Tab Take 1 Tab by mouth BEFORE BREAKFAST. lisinopril (PRINIVIL, ZESTRIL) 10 MG Oral Tab Take 1 Tab by mouth DAILY. metoprolol succinate (TOPROL XL) 25 MG Oral TABLET SR 24 HR Take 1 Tab by mouth TWICE DAILY. potassium chloride (KLOR-CON SPRINKLE) 10 MEQ [...] Amount: 200 mg. Vitamin D, Ergocalciferol, (ERGOCALCIFEROL) 55273 units Oral Cap Take 50, 000 Units by mouth DAILY. (Patient taking differently: Take 50,000 Units by mouth EVERY 7 DAYS.) warfarin (COUMADIN) 5 MG Oral Tab Take 1 Tab by mouth DAILY. HOLD No current facility-administered medications for this visit. [...] More than three times a week Attends sikhism service: Not on file Active member of [...] son adult daughter local REVIEW OF SYSTEMS: All remaining review of systems was negative except for as noted in the history of present illness/subjective. Objective PHYSICAL EXAMINATION: VITALS: BP 110/60 | Pulse 64 | Temp 98.7 F (37.1 C) | Ht 4' 11" ( 1.499 m) | Wt 178 lb (80.7 kg) | BMI 35.95 kg/m Body mass index is 35.95 kg/m. GENERAL: alert, oriented, no acute distress. HEENT: No scleral icterus, MMM Psych: Affect normal Neck: supple ABDOMEN: general exam: soft, non-tender, non-distended, without masses or organomegaly, normal active bowel sounds, Crump's sign negative. Extrmities: no edema Skin: clear Neuro: gait normal, a&o x 3 RECTAL: exam deferred. IMPRESSION: ICD-9-CM ICD-10-CM 1. Constipation, unspecified constipation type 564.00 K59.00 REFER TO GI Plan PLAN: Patient Instructions 1. Will await the CT results of the test Dr. Amanda nagy ordered Preventive measures against dry mouth include: ?Maintenance of good hydration by taking regular sips of water, drinking sugar- free liquids, and avoidance of oral irritants (eg, coffee, alcohol, and nicotine ). ?Avoidance of oral desiccants (eg, coffee, alcohol, tobacco and cannabis smoke). ?Avoidance of medications that may worsen oral dryness, especially those with anticholinergic side effects. These include [id number] cold and sleep remedies and other agents. ?Maintenance of open nasal passages to avoid mouth breathing. ?Avoidance of low-humidity environments, such as air-conditioned stores, centrally heated houses, and airplanes; and the use of humidifiers to maintain adequate humidity, particularly at night. Consider a dry mouth mouthwash which is available in the toothpaste isle of your local grocery or pharmacy 2. May continue to use the stool softener 3. Follow up after your CT scan Thank you for choosing the [facility] for your needs today! -Velia Lopez N.P. , Please call if you need to cancel or change your appt. time. Thank you for choosing [facility] for your health care needs, and for consulting with Rm today. You may receive a survey following this visit, or after an upcoming hospital stay. As easy as it is to feel overloaded with surveys, we are required to send them out randomly and they do provide important feedback so that we may serve your needs in the best way. Please do take the few minutes required to complete the survey if you receive one. We get them too, after seeing the doctor, and they only take a few minutes to complete. Author: Velia Lopez NP 06/03/2019 14:31 documented in this encounter Plan of Treatment Date Type Specialty Care Team Description 01/12/2020 Chronic Care Management Family Practice Health Maintenance Due Date Last Done Comments [...] Problems Progress Blood Pressure Blood Pressure HTN 110/60 No Genevieve, < 140/90 (hypertension) (06/03/2019 Leila, 1:15 PM EDT) Note: Hypertension Care Plan Based on [...] Educational Resources: National Heart, Lung, & Blood [place] http://nhlbi.nih.gov/hbp/index.html The DASH Diet Eating Plan http://www.nhlbi.nih.gov/health/health-topics/ topics/dash/ Academy of Nutrition & DIetetics http://eatright.org National Smoking Cessation Site http://smokefree.gov Blood Pressure < Blood Pressure 110/60 (06/03/2019 No Leila Vallejo, 140/90 1:15 PM EDT) Note: This is an individualized treatment [...] counseling Weight loss vs. 18 mo Lifestyle 65.3 (06/03/2019 1:15 PM No Leila Vallejo MD max (lbs) >= [...] Keep a regular sleep schedule Lifestyle No eLila Vallejo MD Note: This is an individualized [...] Diagnosis Constipation, unspecified constipation type - Primary documented in this encounter Insurance Payer Benefit Plan / Subscriber ID Effective Phone Address Type Group Dates UHC MEDICARE UNITED xxxxxxxxx 2018-Prese UHC ADVANTAGE HEALTHCARE nt MEDICARE ADVANT[place] xxxxxxxx 2016-Prese [place] nt Guarantor Name Account Type Relation to Date of Phone Billing Address Patient Kae Rhodes Personal/Family 1945 [address] (Home) [place], [place] [phone] [id number] (Work) documented as of this encounter
--- OUTSIDE RECORDS SUMMARY | 2019-07-24 16:26 | XMS REPORT | Summary of Care ---
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 Diagnoses Postmenopausal bleeding Leila Vallejo MD [address] [place] [address] MRI/CAT/PET Scan (Routine) Status Reason Specialty Diagnoses / Referred By Referred To Procedures Contact Contact Pending Review Diagnoses Weight loss Genevieve, Procedures CT CHEST ABDOMEN PELVIS WITH IV CONTRAST MD Leila [address] [facility] [place] [address] Reason for Visit Reason Comments Transitional Care Management from [facility] had INR today 1.4 Encounter Details Date Type Department Care Team Description 06/03/2019 Office Visit [facility] Genevieve, Weight loss (Primary Dx); Practice MD Leila Postmenopausal bleeding; [address] [facility] Acquired [place] [address] [place] [address] [phone] Allergies Active Allergy Reactions Severity Noted Date [...] by 4 Cap 3 03/21/2019 Active (ERGOCALCIFEROL) 79307 units mouth DAILY. Oral Cap Additional information [...] Oral Tab BY MOUTH ONCE A WEEK oxybutynin (DITROPAN Take 1 Tab by 30 Tab 0 04/10/2019 06/03/20 Discontinued XL) 5 MG Oral TABLET mouth DAILY. 19 SR 24 HR warfarin (COUMADIN) 5 Take 0.5 Tabs 90 Tab 3 04/28/2019 06/03/20 Discontinued (Dose MG Oral by mouth DAILY. 19 Adjustment) TabIndications: 2.5mg daily Atrial fibrillation, unspecified type (HCC) nystatin (MYCOSTATIN) Take 5 mL by 280 mL 0 05/15/2019 06/03/20 Discontinued 194959 UNIT/ML mouth FOUR 19 Mouth/Throat TIMES DAILY. SuspensionIndications : Thrush documented as of this encounter (statuses as [...] Overview: Status post AHUJA ~1994 Asthma 03/16/2008 halfway current use of anticoagulant therapy 08/22/2007 Overview: Managed by: Kate [facility] Referring Provider: Pita Indication: Afib Target Range: 2.0-3.0 Duration: Indefinite Additional factors influencing anticoagulation: CHADS2 score of 1 for hypertension [id number] score of 3 for age > 65, [...] or relatives? How often do you attend denominational or Not asked oriental orthodox services? Do you belong to any clubs or Not asked organizations such as denominational groups, unions, fraternal or athletic groups, or [...] Time Taken Comments Blood Pressure 110/60 06/03/2019 1:15 PM EDT Pulse 64 06/03/2019 1:15 PM EDT Temperature 37.1 06/03/2019 1:15 PM C (98.7 EDT F) Respiratory Rate - - Oxygen Saturation 95% 06/03/2019 1:15 PM EDT Inhaled Oxygen Concentration - - Weight 81.1 kg (178 lb 11.2 oz) 06/03/2019 1:15 PM EDT Height 149.9 cm (4' 11") 06/03/2019 1:15 PM EDT Body Mass Index 36.09 06/03/2019 1:15 PM EDT documented in this encounter Patient Instructions Patient InstructionsLeila Vallejo MD - 06/03/2019 1:00 PM EDT1. Schedule appointment with BUILDING SUPPLIES SALESPERSON RETAIL 2. Schedule CT of the chest, abdomen and pelvis 3. Follow up after the tests and as needed documented in this encounter Progress Notes Leila Vallejo MD - 06/03/2019 1:00 PM EDT Patient: Kae Rhodes Date of Service: 06/03/2019 Subjective: Kae Rhodes is a 74-y.o. female who presents for Chief Complaint Patient presents with Transitional Care Management from [facility] had INR today 1.4 TCM Statement. Review of the hospitalization: I am seeing for transition of care following hospitalization. The date of discharge was: 05/28/19 The discharge diagnosis was Vaginal bleeding. Supra therapeutic INR. Patient presented to [facility] ER on 05/27/19 with complains of moderate vaginal bleeding started 1 day prior Her INR was 10 Coumadin was held. Pelvic US: thicken endometrial strip - 16 mm, bilateral ovarian cysts Bleeding resolved now. Today INR was 1.4 Continues to loose weight. Continues to complain of poor appetite, dry mouth I reviewed the discharge summary, discharge instructions, and pertinent additional documentation obtained during hospitalization. I reconciled the medications. I also reviewed the Transition of Care documentation done by staff. Coordination of care. (delete one and this phrase) - I am satisfied that appropriate referrals are in place to deal with the problems identified during hospitalization, and that the patient has adequate community resources and support in place. - Additional testing related to hospitalization was requested today: yes See orders. I confirmed the patient's understanding of the diagnosis and plan of care. Patient Instructions 1. Schedule appointment with BUILDING SUPPLIES SALESPERSON RETAIL 2. Schedule CT of the chest, abdomen and pelvis 3. Follow up after the tests and as needed The current and discharge medications were reconciled by me, today The source document was hospital discharge summary Past Medical History: Diagnosis Date Asthma 03/16/2008 Atrial fibrillation (HCC) 07/06/2005 Back pain Cardiomyopathy (HCC) COPD (chronic obstructive pulmonary disease) (HCC) DJD (degenerative joint disease) 03/04/2012 History of breast surgery rt breast bx benign Hypertension Hypothyroidism Obesity Osteoporosis Ovarian cancer (HCC) Sleep apnea CPAP / HS Outpatient Medications as of 06/03/2019 Medication Sig Dispense Refill alendronate (FOSAMAX) 70 MG Oral Tab TAKE 1 TABLET BY MOUTH ONCE A WEEK 12 Tab 1 atorvastatin (LIPITOR) 10 MG Oral Tab TAKE 1 TABLET BY MOUTH ONCE DAILY 90 Tab 1 cyclobenzaprine (FLEXERIL) 10 MG Oral Tab Take 1 Tab by mouth THREE TIMES DAILY NEEDED forMuscle Spasm . 90 Tab 1 digoxin (LANOXIN, DIGITEK) 250 MCG Oral Tab TAKE 1 TABLET BY MOUTH ONCE DAILY 90 Tab 1 Diltiazem HCl Coated Beads 360 MG Oral [...] by mouth BEFORE BREAKFAST. 30 Tab 2 lisinopril (PRINIVIL, ZESTRIL) 10 MG Oral Tab Take 1 Tab by mouth DAILY. 90 Tab 1 metoprolol succinate (TOPROL XL) 25 MG Oral [...] 60 Tab 0 Vitamin D, Ergocalciferol, (ERGOCALCIFEROL) 79783 units Oral Cap Take 50, 000 Units by mouth DAILY. (Patient taking differently: Take 50,000 Units by mouth EVERY 7 DAYS.) 4 Cap 3 No current facility-administered medications on file as of 06/03/2019. Allergies Allergen Reactions Bee Stings [Bee Sting] Dermatologic Reaction Review of Systems: All remaining review of systems was negative. Objective: BP 110/60 (BP Location: Left arm, Patient Position: Sitting) Pulse 64 Temp 98.7 F (37.1 C) Ht 4' 11" (1.499 m) Wt 178 lb 11.2 oz (81.1 kg) SpO2 95% BMI 36.09 kg/m2 GENERAL: alert, fatigued HEAD: normocephalic, without obvious abnormality THROAT: lips, mucosa, and tongue normal: teeth and gums normal NECK: supple, symmetrical, trachea midline and no adenopathy LUNGS: clear to auscultation bilaterally HEART: irregularly irregular rhythm ABDOMEN: soft, tender in the lower L pelvic area. Bowel sounds normal. No masses, no organomegaly EXTREMITIES: varicose veins noted, venous stasis dermatitis noted TSH - low, free T4 elevated. Levothyroxine dose was reduced Component Latest Ref Rng & Units 05/15/2019 05/15/2019 05/15/2019201805/15/2019 11:56 AM 11:56 AM 11:56 AM 11:56 AM 11:56 AM WBC COUNT 3.98 - 10.04 K/uL 11.53 (H) RBC 3.93 - 5.22 M/UL 5.13 Hemoglobin 11.2 - 15.7 g/dL 15.8 (H) Hematocrit 34.1 - 44.9 % 50.5 (H) MCV 79.4 - 94.8 FL 98.4 (H) MCH 25.6 - 32.2 PG 30.8 MCHC 32.2 - 35.5 g/dL 31.3 (L) Platelet Count 182 - 369 K/uL 199 MPV 9.4 - 12.3 FL 12.2 RDW 11.7 - 14.4 % 13.8 NEUTROPHILS 34.0 - 71.1 % 70.8 Lymphocyte % 19.3 - 51.7 % 15.6 (L) MONOCYTES 4.7 - 12.5 % 8.6 Eosinophils 0.7 - 5.8 % 3.9 Basophil % 0.1 - 1.2 % 0.7 nRBC % 0.0 - 0.2 % 0.0 Neutrophil # 1.56 - 6.13 K/UL 8.16 (H) Lymphocyte # 1.18 - 3.74 K/UL 1.80 Monocyte # 0.24 - 0.86 K/UL 0.99 (H) Eosinophil # 0.04 - 0.36 K/UL 0.45 (H) Basophil # 0.01 - 0.08 K/UL 0.08 Immature Gran % 0.0 - 0.4 % 0.4 Immature Gran # 0.00 - 0.03 K/uL 0.05 (H) NRBC # 0.00 - 0.12 K/uL 0.00 Sodium 134 - 145 mmol/L 135 Potassium 3.5 - 5.1 mmol/L 3.5 Chloride 98 - 107 mmol/L 97 (L) CO2 22 - 30 mmol/L 30 Calcium 8.3 - 10.1 mg/dl 9.9 Albumin 3.5 - 5.0 g/dl 3.5 BUN 7 - 17 mg/dl 8 Creatinine 0.7 - 1.2 mg/dl 0.7 Glucose (Lab) 70 - 99 mg/dl 108 (H) Protein,Total 6.3 - 8.2 g/dl 7.5 Total Bilirubin 0.0 - 1.1 MG/DL 0.8 AST 15 - 46 U/L 29 ALT 9 - 52 U/L 24 ALKALINE PHOSPHATASE 40 - 150 U/L 94 eGFR See Interpretation Below ml/min/1.73ml Sq >60 BUN/Creatinine Ratio 6 - 22 RATIO 11 Anion Gap 3 - 11 mmol/L 8 A/G Ratio 0.8 - 2.0 ratio 0.9 INR 0.79 - 1.15 Ratio 2.50 (H) Protime Patient Baseline 11.4 - 14.3 sec 26.9 (H) TSH 0.47 - 4.68 uIu/ml 0.33 (L) Free T4 0.8 - 2.2 NG/DL 2.6 (H) ICD-9-CM ICD-10-CM 1. Weight loss 783.[address] CHEST ABDOMEN PELVIS WITH IV CONTRAST 2. Postmenopausal bleeding 627.1 N95.0 REFER TO OB / BUILDING SUPPLIES SALESPERSON RETAIL 3. Acquired hypothyroidism 244.9 E03.9 FREE T4 Repeat thyroid tests in 2 weeks THYROID STIMULATING HORMONE Patient Instructions 1. Schedule appointment with BUILDING SUPPLIES SALESPERSON RETAIL 2. Schedule CT of the chest, abdomen and pelvis 3. Follow up after the tests and as needed Author: Leila Vallejo MD documented in this encounter Plan of Treatment Date Type Specialty Care Team Description 01/12/2020 Chronic Care Management Family Practice Name Type Priority Associated Diagnoses Order Schedule CT CHEST ABDOMEN PELVIS Imaging Routine Weight loss Expected: WITH IV CONTRAST 06/03/2019, Expires: 06/02/2020 FREE T4 Lab Routine Acquired hypothyroidism Expected: 06/03/2019 (Approximate), Expires: 06/03/2020 THYROID STIMULATING Lab Routine Acquired hypothyroidism Expected: 2018 HORMONE (Approximate), Expires: 06/03/2020 Name Type Priority Associated Diagnoses Order Schedule REFER TO OB / BUILDING SUPPLIES SALESPERSON RETAIL Referral Routine Postmenopausal bleeding Expected: 2018, Expires: 06/03/2020 Health Maintenance Due Date Last Done Comments [...] Educational Resources. record my blood pressure results. [employer] is safe and secure way for you [...] Educational Resources: National Heart, Lung, & Blood [place] http://nhlbi.nih.gov/hbp/index.html The DASH Diet Eating Plan http://www.nhlbi.nih.gov/health/health-topics/ [...] is an individualized lifestyle goal for Kaelee Rhodes: Please be sure to keep up-to-date on recommended immunizations. For example, this would include a yearly influenza vaccine. Immunization status can be seen by looking at the Health Maintenance sections of your [facility], Plan of Care, and any After Visit Summaries. Keep a regular sleep schedule Lifestyle Leila Rivera MD Note: This is an individualized lifestyle goal for Kae Galina Meagan: Please maintain a regular sleep schedule. This may help with some symptoms of depression. Take all prescribed medications as Self-management No Leila Vallejo MD directed Note: This is an individualized self-management goal for Kaelee Rhodes: Please take all prescribed medications as [...] filedocumented in this encounter Visit Diagnoses Diagnosis Weight loss - Primary Loss of weight Postmenopausal bleeding Acquired hypothyroidism Unspecified hypothyroidism documented in this encounter Insurance Payer Benefit Plan / Subscriber ID Effective Phone Address Type Group Dates UHC MEDICARE UNITED xxxxxxxxx 2018-Prese UHC ADVANTAGE HEALTHCARE nt MEDICARE ADV[place] xxxxxxxx 2016-Prese Medicaid [place] nt Guarantor Name Account Type Relation to Date of Phone Billing Address Patient Kae Rhodes Personal/Family 1945 [address] (Home) [place], [place] [phone] [id number] (Work) documented as of this encounter
--- NOTE | 2019-07-24 18:06 | ED ---
Complex/Multi-Sys Presentation - HPI Summary HPI Summary: 74-year-old female with significant past medical history of atrial fibrillation , aortic stenosis, congestive heart failure, COPD, uterine mass causing vaginal bleeding, 100 pound weight loss in the last 4 months reports emergency department today complaining of increased weakness. She complains of dry mouth , weakness, "stomach bug for a week" abdominal cramping and feeling to frequently have bowel movements. She also endorses vaginal bleeding which is being followed by flight/transport nurse. She was scheduled to have a biopsy done of uterine mass today to investigate pathology however she did not feel well enough to make the appointment. Patient denies fever, chest pain, abdominal pain, pain with urination, shortness of breath, lightheadedness, changes in vision, dark or bloody stools. She denies recent alcohol use or a critical drug use but endorses Smoking. Family history and social history noncontributory. Patient is on warfarin for atrial fibrillation. - History Of Current Complaint Chief Complaint: EDGIBleed Time Seen by Provider: 07/24/19 17:36 Hx Obtained From: Patient Onset/Duration: Gradual Onset, Lasting Days Timing: Constant Severity Currently: Mild Severity Initially: Mild Associated Signs And Symptoms: Positive: Weakness, Cough, Anticoagulation Therapy. Negative: Confusion, Dizziness, Syncope, Headache, SOB, Wheezing, Hemoptysis, Chest Pain, Nausea, Vomiting, Diarrhea, Abdominal Pain, Dysuria, Hematemesis, Melena, Fever Related History: Recent Illness - Allergies/Home Medications Allergies/Adverse Reactions: Allergies Allergy/AdvReac Type Severity Reaction Status Date / Time bee venom protein (honey bee) Allergy Swelling Verified 07/24/19 16:16 Home Medications: Home Medications Albuterol inh POWDER (NF) [Proair Respiclick] 2 puff INH Q4HR PRN 07/24/19 [ History Confirmed 07/24/19] Alendronate (NF) [Fosamax (NF)] 70 mg PO WEEKLY 07/24/19 [History Confirmed ] Atorvastatin* [Lipitor*] 20 mg PO DAILY 07/24/19 [History Confirmed 07/24/19] Cyclobenzaprine TAB* [Flexeril 10 MG TAB*] 10 mg PO TID PRN 07/24/19 [History Confirmed 07/24/19] Ergocalciferol CAP* [Drisdol CAP*] 50,000 unit PO WEEKLY 07/24/19 [History Confirmed 07/24/19] Levothyroxine TAB* [Synthroid TAB*] 150 mcg PO DAILY 07/24/19 [History Confirmed 07/24/19] Potassium Chlor TAB* [Klor Con ER TAB*] 10 meq PO DAILY 07/24/19 [History Confirmed 07/24/19] Warfarin TAB(*) [Coumadin TAB(*)] 2.5 mg PO SUTUTHSA 07/24/19 [History Confirmed 07/24/19] Warfarin TAB(*) [Coumadin TAB(*)] 5 mg PO MOWEFR 07/24/19 [History Confirmed ] dilTIAZem HCl [Cartia Xt] 120 mg PO DAILY 07/24/19 [History Confirmed 07/24/19] traMADol TAB* [Ultram*] 50 mg PO Q6HR PRN 07/24/19 [History Confirmed 07/24/19] PMH/Surg Hx/FS Hx/Imm Hx Endocrine/Hematology History: Reports: Hx Thyroid Disease - HYPOTHYROID Denies: Hx Diabetes Cardiovascular History: Reports: Hx Hypercholesterolemia, Hx Hypertension, Hx Valvular Heart Disease Denies: Hx Coronary Artery Disease, Hx Myocardial Infarction Respiratory History: Reports: Hx Asthma - since 2010, Hx Chronic Obstructive Pulmonary Disease (COPD), Hx Pneumonia, Hx Seasonal Allergies, Hx Sleep Apnea History: Denies: Hx Chronic Renal Failure Musculoskeletal History: Reports: Hx Arthritis, Hx Osteoporosis Sensory History: Reports: Hx Cataracts - cataract surgery to left eye, cataract in right eye also, no surgery, Hx Contacts or Glasses, Hx Glaucoma Denies: Hx Hearing Aid Opthamlomology History: Reports: Hx Cataracts - cataract surgery to left eye, cataract in right eye also, no surgery, Hx Contacts or Glasses, Hx Glaucoma Psychiatric History: Reports: Hx Anxiety, Hx Depression - Surgical History Surgery Procedure, Year, and Place: C Sections x2. 02/10/1972. 07/1966 Hx Anesthesia Reactions: No Infectious Disease History: No Infectious Disease History: Denies: Hx Clostridium Difficile, Hx Hepatitis, Hx Human Immunodeficiency Virus (HIV), Hx of Known/Suspected MRSA, Hx Shingles, Hx Tuberculosis, Traveled Outside the [place] in Last 30 Days - Family History Known Family History: Negative: Renal Disease - Social History Alcohol Use: None Hx Substance Use: No Substance Use Type: Reports: None Hx Tobacco Use: Yes Smoking Status (MU): Light Every Day Tobacco Smoker Review of Systems Positive: Fatigue. Negative: Fever, Chills, Skin Diaphoresis Eyes: Negative Negative: Photophobia, Blurred Vision, Diplopia, Drainage, Erythema Positive: Nasal Discharge Cardiovascular: Negative Respiratory: Negative Gastrointestinal: Negative Positive: discharge, pain - pelvic discomfort. Negative: no symptoms reported, burning, dysuria, frequency, flank pain, hematuria, incontinence, urgency Musculoskeletal: Negative Skin: Negative Neurological: Negative Psychological: Normal All Other Systems Reviewed And Are Negative: Yes Physical Exam Triage Information Reviewed: Yes Vital Signs On Initial Exam: Initial Vitals Temp Pulse Resp BP Pulse Ox 98.1 F 123 19 103/69 93 07/24/19 16:12 07/24/19 16:12 07/24/19 16:12 07/24/19 16:12 07/24/19 16:12 Vital Signs Reviewed: Yes Appearance: Positive: Well-Appearing, No Pain Distress, Well-Nourished Skin: Positive: Warm, Skin Color Reflects Adequate Perfusion Eyes: Positive: EOMI, DOLORES ENT: Positive: Hearing grossly normal Respiratory/Lung Sounds: Positive: Breath Sounds Present, Decreased Breath Sounds, Rhonchi, Wheezes Cardiovascular: Positive: RRR, S1, S2 Abdomen Description: Positive: Nontender, Soft. Negative: CVA Tenderness (R), CVA Tenderness (L), Distended, Guarding, McBurney's Point Tenderness, Peritoneal Signs, Pulsatile Mass Bowel Sounds: Positive: Present Musculoskeletal: Positive: Strength/ROM Intact, Edema Left, Edema Right, Other - Hyperpigmentation consistent with venous insufficiency is noted to the bilateral lower trapezius as well as +1 pitting edema. Neurological: Positive: Sensory/Motor Intact, Alert, Oriented to Person Place, Time, Normal Gait, Speech Normal Psychiatric: Positive: Normal AVPU Assessment: Alert Procedures - Sedation Patient Received Moderate/Deep Sedation with Procedure: No Diagnostics - Vital Signs Vital Signs Temp Pulse Resp BP Pulse Ox 07/24/19 16:12 98.1 F 123 19 103/69 93 - Laboratory Result Diagrams: 07/24/19 18:19 07/24/19 18:19 Lab Statement: Any lab studies that have been ordered have been reviewed, and results considered in the medical decision making process. Complex Multi-Symp Course/Dx Course Of Treatment: Patient was evaluated in the emergency department for weakness. She was seen and examined her vitals are stable and she is afebrile. Laboratory studies returned showing leukocytosis at 15.4 with mild elevation in C-reactive protein at 52.61. No evidence of anemia. Potassium returned at 3.1 for which the patient was given replacement. Chest x-ray was non-suggestive of infiltrate or acute cardiopulmonary pathology. Patient had no complaints of urinary tract symptoms. Patient was given 500 cc of normal saline in the emergency department for tachycardia at a rate of 160 with A. fib with RVR. prior to discharge patient's heart rate returned to below 100. Patients symptoms are most likely due to viral upper respiratory infection. She is told to follow up as an outpatient for further evaluation and management of her symptoms. - Diagnoses Differential Diagnoses/HQI/PQRI: Metabolic Abnormality Provider Diagnoses: Weakness Discharge ED - Sign-Out/Discharge Documenting (check all that apply): Patient Departure - Discharge Plan Condition: Stable Disposition: HOME Patient Education Materials: Weakness (ED) Referrals: Leila Vallejo MD [Primary Care Provider] - 3 Days Additional Instructions: You were seen in the emergency department today for weakness. Labwork was done as well as imaging which revealed no acute infectious pathology requiring intervention at this time. Please follow up with your primary care provider in 3 days for further evaluation and management of your symptoms. Please follow- up with your molder setter for biopsy of your uterine mass. Please increase oral intake of fluids as were slightly dehydrated in the emergency department. Please continue to monitor heart rate and return if it becomes above 160 bpm. Please return to the emergency department immediately if you develop any new or worsening symptoms. - Billing Disposition and Condition Condition: STABLE Disposition: Home
[2019-07-24 18:30] LABS: ABS Basophils 0.1 10^3/ul (0-0.2); ABS Lymphocytes 0.9 10^3/ul (1.0-4.8); ABS Monocytes 0.7 10^3/ul (0-0.8); ABS Neutrophils 13.7 10^3/ul (1.5-7.7); Eosinophil % 0.3 %; Hematocrit 38 % (35-47); Hemoglobin 12.8 g/dL (12.0-16.0); Lymphocyte % 5.8 %; Mean Corpuscular HGB Conc 34 g/dL (31-36); Mean Corpuscular Hemoglobin 33 pg (27-31); Mean Corpuscular Volume 98 fL (80-97); Mean Platelet Volume 9.9 fL (7.4-10.4); Platelet Count 172 10^3/uL (150-450); Red Blood Count 3.85 10^6 /uL (3.70-4.87); Red Cell Distribution Width 17 % (10-15); White Blood Count 15.4 10^3/uL (3.5-10.8)
[2019-07-24 18:42] LABS: Activated Partial Thrombo Time 32.1 seconds (26.0-38.0); INR 2.03 (0.82-1.09)
[2019-07-24 18:47] LABS: Albumin 3.1 g/dL (3.2-5.2); BUN/Creatinine Ratio 18.5 (8-20); C Reactive Protein 52.61 mg/L (<8.01); Calcium 10.5 mg/dL (8.6-10.3); EGFR African American 48.7 (>60); EGFR Non-African American 40.3 (>60); Globulin 3.2 g/dL (2-4); Potassium 3.1 mmol/L (3.5-5.0); Total Bilirubin 1.2 mg/dL (0.2-1.0); Total Protein 6.3 g/dL (6.4-8.9)
[2019-07-24] MEDS: NS 0.9% 1000 ML** 1,000 ML IV.FLUID IV ONE (18:58)
[2019-07-24] MEDS: NS 0.9% 500 ML* 500 ML IV ONE (18:59)
[2019-07-24 22:09] VITALS: BP 123/89
[2019-07-24] MEDS: Potassium Chlor TAB* 20 MEQ TAB.ER PO ONE (22:09)
== END 2019-07-24 22:13 | disposition home or self-care (01) ==
LOC: ED 15:58
DX: R53.1 Weakness (principal); I48.91 Unspecified atrial fibrillation; I50.9 Heart failure, unspecified; J44.9 Chronic obstructive pulmonary disease, unspecified; E03.9 Hypothyroidism, unspecified; E78.00 Pure hypercholesterolemia, unspecified; I11.0 Hypertensive heart disease with heart failure; I38 Endocarditis, valve unspecified; F41.9 Anxiety disorder, unspecified; F32.9 Major depressive disorder, single episode, unspecified; F17.200 Nicotine dependence, unspecified, uncomplicated; Z79.01 Long term (current) use of anticoagulants; Z79.899 Other long term (current) drug therapy
CPT/HCPCS: 36415; 71046; 80053; 85025; 85610; 85730; 86140; 93005; 96360; 99284; A9270-GY

== ENCOUNTER 2019-09-02 09:28 | Inpatient (IN) | payer MEDICARE, MEDICAID ==
--- NOTE | 2019-09-02 10:00 | ED ---
Altered Mental Status - HPI Summary HPI Summary: 74 year old F arriving via ambulance from home where she lives with her son accompanied by daughter complains of altered mental status since today 2019 AM. Daughter states that patient lives with her son. Daughter states she visited her mother yesterday 09/01/2019 PM and noticed that patient is worse than she was 3 weeks ago when daughter last saw patient. Daughter states patient has not gotten out of bed, eaten, or drank anything in 3 days. Daughter noticed confusion today 09/02/2019 AM and called EMS. Recent weight loss per daughter. No recent falls per daughter. Pain rated 0/10 in severity. Symptoms aggravated by nothing. Symptoms alleviated by nothing. Medications reviewed. Allergies noted. Hx atrial fibrillation. No hx diabetes. On Coumadin per daughter. Patient is on CPAP per daughter. - History Of Current Complaint Chief Complaint: EDAltMentalStatus Stated Complaint: AMS PER EMS Time Seen by Provider: 09/02/19 09:46 Hx Obtained From: Family/Legal Archivist - daughter Onset/Duration: Still Present Timing: Constant, Lasting Hours Severity Currently: None Character: Confusion Aggravating Factor(s): Nothing Alleviating Factor(s): Nothing - Allergies/Home Medications Allergies/Adverse Reactions: Allergies Allergy/AdvReac Type Severity Reaction Status Date / Time bee venom protein (honey bee) Allergy Swelling Verified 07/24/19 16:16 PMH/Surg Hx/FS Hx/Imm Hx Endocrine/Hematology History: Reports: Hx Thyroid Disease - HYPOTHYROID Denies: Hx Diabetes Cardiovascular History: Reports: Hx Hypercholesterolemia, Hx Hypertension, Hx Valvular Heart Disease Denies: Hx Coronary Artery Disease, Hx Myocardial Infarction Respiratory History: Reports: Hx Asthma - since 2010, Hx Chronic Obstructive Pulmonary Disease (COPD), Hx Pneumonia, Hx Seasonal Allergies, Hx Sleep Apnea History: Denies: Hx Chronic Renal Failure Musculoskeletal History: Reports: Hx Arthritis, Hx Osteoporosis Sensory History: Reports: Hx Cataracts - cataract surgery to left eye, cataract in right eye also, no surgery, Hx Contacts or Glasses, Hx Glaucoma Denies: Hx Hearing Aid Opthamlomology History: Reports: Hx Cataracts - cataract surgery to left eye, cataract in right eye also, no surgery, Hx Contacts or Glasses, Hx Glaucoma Psychiatric History: Reports: Hx Anxiety, Hx Depression - Surgical History Surgery Procedure, Year, and Place: C Sections x2. 02/10/1972. 07/1966 Hx Anesthesia Reactions: No Infectious Disease History: No Infectious Disease History: Denies: Hx Clostridium Difficile, Hx Hepatitis, Hx Human Immunodeficiency Virus (HIV), Hx of Known/Suspected MRSA, Hx Shingles, Hx Tuberculosis, Traveled Outside the [place] in Last 30 Days - Family History Known Family History: Negative: Renal Disease - Social History Alcohol Use: None Hx Substance Use: No Substance Use Type: Reports: None Hx Tobacco Use: Yes Smoking Status (MU): Light Every Day Tobacco Smoker Review of Systems Positive: Other - decreased appetite, recent weight loss Neurological: Other - AMS, confusion Positive: Weakness All Other Systems Reviewed And Are Negative: Yes Physical Exam - Summary Physical Exam Summary: Constitutional: Well-developed, Well-nourished, Alert. (-) Distressed. Patient appears fatigued Skin: Warm, Dry. Petechiae noted over abdomen and torso HENT: Normocephalic; Atraumatic. Dry mucous membranes Eyes: Conjunctiva normal Neck: Musculoskeletal ROM normal neck. (-) JVD, (-) Stridor, (-) Tracheal deviation Cardio: Tachycardic, irregular rhythm, Heart sounds normal; Intact distal pulses ; The pedal pulses are 2+ and symmetric. Radial pulses are 2+ and symmetric. (- ) Murmur Pulmonary/Chest wall: Effort normal. (-) Respiratory distress, (-) Wheezes, (-) Rales. Decreased breath sounds Abd: Soft, (-) tenderness, (-) Distension, (-) Guarding, (-) Rebound Rectal exam chaperoned by female aide: Fecal incontinence, brown stool, no gross blood on KELLY Musculoskeletal: (-) Edema Lymph: (-) Cervical adenopathy Neuro: Alert, Oriented x3. No focal deficits Psych: Mood and affect Normal Triage Information Reviewed: Yes Vital Signs On Initial Exam: Initial Vitals Temp Pulse Resp BP Pulse Ox 98.1 F 90 18 137/95 100 09/02/19 09:37 09/02/19 09:37 09/02/19 09:37 09/02/19 09:37 09/02/19 09:37 Vital Signs Reviewed: Yes Procedures - Sedation Patient Received Moderate/Deep Sedation with Procedure: No Diagnostics - Vital Signs Vital Signs Temp Pulse Resp BP Pulse Ox 09/02/19 09:37 98.1 F 90 18 137/95 100 - Laboratory Result Diagrams: 09/02/19 16:12 09/02/19 16:12 Lab Statement: Any lab studies that have been ordered have been reviewed, and results considered in the medical decision making process. - Radiology CXR Summary of Radiographic Findings: MILD CARDIOMEGALY. NO ACTIVE CARDIOPULMONARY DISEASE. ED physician has reviewed this report. - EKG 1048 Cardiac Rate: Tachycardia - 141 BPM EKG Rhythm: Atrial Fibrillation Summary of EKG Findings: No STEMI. Dr. Kc has reviewed and interpreted this EKG. Re-Evaluation - Re-Evaluation First Eval Re-Evaluation Time: 10:54 Comment: Aware of troponin 0.17 Second Eval Re-Evaluation Time: 10:58 Comment: Aware of lactic acid 2.8 Altered Mental Statu Course/Dx - Course Course Of Treatment: 74 year old F arriving via ambulance from home where she lives with her son accompanied by daughter complains of altered mental status since today 09/02/2019 AM. Daughter states that patient lives with her son. Daughter states she visited her mother yesterday 09/01/2019 PM and noticed that patient is worse than she was 3 weeks ago when daughter last saw patient. Daughter states patient has not gotten out of bed, eaten, or drank anything in 3 days. Daughter noticed confusion today 09/02/2019 AM and called EMS. Recent weight loss per daughter. No recent falls per daughter. Upon exam, the patient appears fatigued. She has dry mucous membranes. She is tachycardic and has irregular rhythm. She has decreased breath sounds. Petechiae noted over abdomen and torso. No focal deficits. Rectal exam chaperoned by female aide: Fecal incontinence, brown stool, no gross blood on KELLY. Bloodwork results with no significant abnormalities except for WBC 15.1, RBC 3.07, Hgb 10.5, Hct 32, MCV 103, MCH 34, RDW 19, platelet 108, MPV 10.8, absolute neuts 13.9, absolute lymphs 0.7, APTT 40.4, INR 3.52, potassium 2.9, BUN 42, creatinine 1.24, BUN/ creatinine 33.9, lactic acid 2.8, total bilirubin 1.40, AST 10, troponin 0.17, CRP 82.11, BNP 354, total portein 5.4, albumin 2.7, TSH 6.79. Toxicology results with no significant abnormalities except for digoxin <0.3. Stool sample ordered and sent to lab. An EKG shows atrial fibrillation 141 BPM. No STEMI. CXR shows per radiologist: MILD CARDIOMEGALY. NO ACTIVE CARDIOPULMONARY DISEASE. In the ED course, the patient was given normal saline IV fluids 2 L. Patient still in atrial fibrillation with RVR. Patient started on Cardizem drip. Patient given potassium chloride and diltiazem. Spoke with Dr. Davis, hospitalist, who agrees to admit patient. - Diagnoses Provider Diagnoses: Atrial fibrillation with RVR, Failure to thrive, Leukocytosis, SARS (severe acute respiratory syndrome), Hypokalemia, Elevated troponin - Provider Notifications Discussed Care Of Patient With: Elisabeth Davis Time Discussed With Above Provider: 10:56 Instructed by Provider To: Admit As Inpatient - Critical Care Time Critical Care Time: 30-74 min - 60 minutes Discharge ED - Sign-Out/Discharge Documenting (check all that apply): Patient Departure - Discharge Plan Condition: Stable Disposition: ADMITTED TO [facility] - Billing Disposition and Condition Condition: STABLE Disposition: Admitted to [facility] - Attestation Statements Document Initiated by Negro: Yes Documenting Scribe: Fany Zhou Provider For Whom Negro is Documenting (Include Credential): Amish Kc DO Scribsilvina Attestation: Fany Cates scribed for Amish Kc DO on 09/02/19 at 1705. Scribe Documentation Reviewed: Yes Provider Attestation: The documentation as recorded by the Fany wheat accurately reflects the service I personally performed and the decisions made by , Amish Kc DO Status of Scrmitul Document: Viewed
[2019-09-02] MEDS ORDERED: NS 0.9% 1000 ML** 1,000 ML IV ONE ×4 (10:02→18:04)
[2019-09-02 10:29] LABS: ABS Eosinophils 0.1 10^3/ul (0-0.6); ABS Lymphocytes 0.7 10^3/ul (1.0-4.8); ABS Monocytes 0.4 10^3/ul (0-0.8); ABS Neutrophils 13.9 10^3/ul (1.5-7.7); Eosinophil % 0.3 %; Hematocrit 32 % (35-47); Hemoglobin 10.5 g/dL (12.0-16.0); Lymphocyte % 4.8 %; Mean Corpuscular HGB Conc 33 g/dL (31-36); Mean Corpuscular Hemoglobin 34 pg (27-31); Mean Corpuscular Volume 103 fL (80-97); Mean Platelet Volume 10.8 fL (7.4-10.4); Nucleated Red Blood Cells % 0.1; Platelet Count 108 10^3/uL (150-450); Red Blood Count 3.07 10^6 /uL (3.70-4.87); Red Cell Distribution Width 19 % (10-15); White Blood Count 15.1 10^3/uL (3.5-10.8)
--- OUTSIDE RECORDS SUMMARY | 2019-09-02 10:32 | XMS REPORT | Summary of Care ---
:1945 Author Organization [facility] Address [address] [place] [address] Care Team Providers Name Role Phone Leila Vallejo Primary Care Provider Reason for Referral Medication Prior Authorization (Routine) Status Reason Specialty Diagnoses / Referred By Referred To Procedures Contact Contact Pending Review Diagnoses Nausea Leila Vallejo MD [address] [place] [address] Reason for Visit Reason Comments Follow Up pt stated no more bleeding , was [place] [facility] , pt is very lathergic seems realy down Encounter Details Date Type Department Care Team Description 07/28/2019 Office Visit Kate Craigtone, Acute maxillary sinusitis , recurrence not specified (Primary Dx); Practice MD Leila Vaginal bleeding; [address] [place] [address] [place] [address] [phone] Allergies Active Allergy Reactions Severity Noted Date Comments Bee Sting Dermatologic Reaction 03/03/2008 documented as of this encounter (statuses as of 07/28/2019) Medications Medication Sig Dispensed Refills Start Date [...] by 4 Cap 3 03/21/2019 Active (ERGOCALCIFEROL) 28922 units mouth DAILY. Oral Cap Additional information [...] Tab 1 06/27/2019 Active Oral Tab DAILY. azithromycin (ZITHROMAX Z-ULICES) Take 2 pills on the first 6 Tab 0 2018 Active 250 MG Oral TabIndications: day and 1 pill each day Acute maxillary sinusitis, for 4 days recurrence not specified ondansetron (ZOFRAN) 4 MG Oral Take 4 mg by mouth EVERY 30 Tab 1 2018 Active TabIndications: Nausea EIGHT HOURS NEEDED (nausea). 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 Diltiazem increases warfarin effect Levothyroxine increases warfarin effect Sertraline increases warfarin level Updated Referral: 12/2011, 01/2013, 07/21/14, 11/2015, 01/29/17, 08/2018 AntiCoag Orders 01/21/2013, 07/22/14, 11/18/15, 03/26/17, 08/27/18 Tobacco use disorder 04/02/2007 Cardiomyopathy Aortic stenosis Overview: moderate to severe 06/2019 documented as of this encounter (statuses as of 07/28/2019) Resolved Problems Problem Noted Date Resolved Date A-fib 07/22/2014 06/13/2019 Atrial fibrillation 07/06/2005 06/13/2019 Overview: Chronic; cath 2006 Dr Perry documented as of this encounter (statuses as of 07/28/2019) Immunizations Name Administration Dates Next Due H1N1 [...] or relatives? How often do you attend mandaeism or Not asked gnosticism services? Do you belong to any clubs or Not asked organizations such as mandaeism groups, unions, fraternal or athletic groups, or [...] Sign Reading Time Taken Comments Blood Pressure 112/60 07/28/2019 9:44 AM EST Pulse 72 07/28/2019 9:44 AM EST Temperature 35.7 07/28/2019 9:44 AM EST C (96.2 F) Respiratory Rate - - Oxygen Saturation 99% 07/28/2019 9:44 AM EST Inhaled Oxygen Concentration - - Weight - - Height - - Body Mass Index - - documented in this encounter Patient Instructions Patient InstructionsLeila Vallejo MD - 07/28/2019 9:20 AM EST1. Stop Fosamax 2. Take Zofran 4 mg every 8 hours as needed for nausea 3. Take Z pack as derected documented in this encounter Progress Notes Leila Vallejo MD - 07/28/2019 9:20 AM EST Patient: Kae Rhodes Date of Service: 07/28/2019 Subjective: Kae Mojica Meagan is a 74-y.o. female who presents for Chief Complaint Patient presents with Follow Up pt stated no more bleeding , was [place] [facility] , pt is very lathergic seems realy down Patient comes follow up evaluation at [facility] 07/24 where she presented with complains of increasing weakness, poor appetite, dry heaves, vaginal bleeding Patient was scheduled for endometrial biopsy on that day CBC - no anemia, INR - therapeutic, CMP - low albumin, elevated Calcium Chest x-ray - negative Patient continues to complain of poor appetite, nausea. \Also nasal congestion, postnasal drip, productive cough. Past Medical History: Diagnosis Date Aortic stenosis moderate to severe 06/2019 Asthma 03/16/2008 Atrial fibrillation (HCC) 07/06/2005 Back pain Cardiomyopathy (HCC) COPD (chronic obstructive pulmonary disease) (HCC) DJD (degenerative joint disease) 03/04/2012 History of breast surgery rt breast bx benign Hypertension Hypothyroidism Obesity Osteoporosis Ovarian cancer (HCC) Sleep apnea CPAP / HS Outpatient Medications as of 07/28/2019 Medication Sig Dispense Refill alendronate (FOSAMAX) 70 [...] 60 Tab 0 Vitamin D, Ergocalciferol, (ERGOCALCIFEROL) 41486 units Oral Cap Take 50, 000 Units by mouth DAILY. (Patient taking differently: Take 50,000 Units by mouth EVERY 7 DAYS.) 4 Cap 3 warfarin (COUMADIN) 2.5 MG Oral Tab Take 0.5-1 Tabs by mouth DAILY. As directed 30 Tab 2 No current facility-administered medications on file as of 07/28/2019. Allergies Allergen Reactions Bee Stings [Bee Sting] Dermatologic Reaction Review of Systems: All remaining review of systems was negative. Objective: BP 112/60 (BP Location: Left arm, Patient Position: Sitting) Pulse 72 Temp 96.2 F (35.7 C) SpO2 99% GENERAL: alert, fatigued NOSE: moderate congestion, sinus tenderness bilateral THROAT: mild oropharyngeal erythema, postnasal drip NECK: supple, symmetrical, trachea midline and mild anterior cervical adenopathy LUNGS: clear to auscultation bilaterally HEART: regular rate and rhythm, S1, S2 normal, no murmur, click, rub or gallop ICD-9-CM ICD-10-CM 1. Acute maxillary sinusitis, recurrence not specified 461.0 J01.00 azithromycin (ZITHROMAX Z-ULICES) 250 MG Oral Tab 2. Vaginal bleeding Biopsy was rescheduled for 08/04/19 623.8 N93.9 3. Nausea 787.02 R11.0 ondansetron (ZOFRAN) 4 MG Oral Tab Patient Instructions 1. Stop Fosamax 2. Take Zofran 4 mg every 8 hours as needed for nausea 3. Take Z pack as directed Coumadin clinic notified about antibiotic treatment Author: Leila Vallejo MD documented in this encounter Plan of Treatment Date Type Specialty Care Team Description 08/01/2019 AntiCoag Anticoagulation 01/12/2020 Chronic Care Management Family Practice Health Maintenance Due Date Last Done Comments DTaP/Tdap/Td Vaccines (1 - 1958 Tdap) PNEUMOCOCCAL 65+YRS (2 of [...] Problems Progress Blood Pressure Blood Pressure HTN 112/60 No [place], < 140/90 (hypertension) (07/28/2019 Leila, 9:44 AM EST) Note: Hypertension Care Plan Based [...] Educational Resources. record my blood pressure results. GetPromotd is safe and secure way for you [...] Educational Resources: National Heart, Lung, & Blood Burns http://nhlbi.nih.gov/hbp/index.html The DASH Diet Eating Plan http://www.nhlbi.nih.gov/health/health-topics/ topics/dash/ Academy of Nutrition & DIetetics http://eatright.org National Smoking Cessation Site http://smokefree.gov Blood Pressure < Blood Pressure 112/60 (07/28/2019 Leila Rivera, 140/90 9:44 AM EST) Note: This is an individualized [...] 18 mo Lifestyle 87.1 (07/16/2019 9:47 AM Leila Rivera MD max (lbs) >= 10 EST) Note: [...] filedocumented in this encounter Visit Diagnoses Diagnosis Acute maxillary sinusitis, recurrence not specified Vaginal bleeding Other specified noninflammatory disorder of vagina Nausea Nausea alone documented in this encounter Insurance Payer Benefit Plan / Subscriber ID Effective Phone Address Type Group Dates UHC MEDICARE UNITED xxxxxxxxx 2018-Prese UHC ADVANTAGE HEALTHCARE nt MEDICARE ADV[place] xxxxxxxx 2016-Prese Medicaid [place] nt Guarantor Name Account Type Relation to Date of Phone Billing Address Patient Kae Rhodes Personal/Family 1945 [address] (Home) [place], [place] [phone] [id number] (Work) documented as of this encounter
--- OUTSIDE RECORDS SUMMARY | 2019-09-02 10:32 | XMS REPORT | Continuity of Care Document ---
:1945 External Reference #:[id number] Author Name Aquilino Ramírez Care Team Providers Name Role Phone Leila Vallejo MD - Family Care Team Information Marketing Effectiveness Manager [phone] Medicine Problems Active Problems Provider Date Benign [...] 1 by mouth every 90tabs E78.5 [place] 2018 20mg day SOLAR MANAGER Tablets Cardizem CD 1 by mouth daily 90caps Rodolfo Yen 06/20/2019 120mg Caps ER Delano Landis 24HR Potassium Citrate ER one po qd [...] 5mg Tablets (mon-wed-fri) 1/2 Delano Landis po tues, thurs, sat, sun. [facility] Benadryl 1 PO prn Rodolfo [...] Available Procedures Date Code Description Status 06/20/2019 30988 Treadmill Interp/Report Only Completed 06/20/2019 31768 Stress Test Supervsn W/Out I/R Completed 06/04/2019 61964 ECHO Transthoracic, Real-Time 2D With Doppler And Color Completed Flow 06/04/2019 17628 ECHO Transthoracic, Real-Time 2D With Doppler And Color Completed Flow 05/15/2019 99874 EKG Tracing & Interpretation Completed Medical Devices Description No Information Available Encounters Type Date Location Provider Dx Diagnosis Office Visit 06/26/2019 [facility], I35.0 Nonrheumatic aortic 1:00p SOLAR MANAGER (valve) stenosis I48.21 Permanent atrial fibrillation 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 and vaginal Hospitalists bleeding, unspecified R79.1 Abnormal coagulation profile Z79.01 senior living (current) use of anticoagulants Office Visit 05/15/2019 1:00p [facility], I35.0 Nonrheumatic SOLAR MANAGER aortic (valve) stenosis I10 Essential (primary) hypertension I42.9 Cardiomyopathy, unspecified R94.31 Abnormal electrocardiogram [ECG] [EKG] I48.21 Permanent atrial fibrillation Assessments Date Code Description Provider 06/26/2019 I35.0 [facility] 06/26/2019 I48.21 Permanent atrial fibrillation [place], SOLAR MANAGER 06/26/2019 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 06/04/2019 I35.0 Nonrheumatic aortic (valve) stenosis Rodolfo Landis M.D. 06/04/2019 I35.0 Nonrheumatic aortic (valve) stenosis [place] ECHO Schedule 05/28/2019 N93.9 Abnormal uterine and vaginal bleeding, Mary Rollins MD unspecified 05/28/2019 R79.1 Abnormal coagulation profile Mary Rollins MD 05/27/2019 N93.9 Abnormal uterine and vaginal bleeding, Elisabeth Davis M.D. unspecified 05/27/2019 R79.1 Abnormal coagulation profile Elisabeth Davis M.D. 05/27/2019 Z79.01 senior living (current) use of anticoagulants Elisabeth Davis M.D. 05/15/2019 I48.21 Permanent atrial fibrillation Rodolfo Landis M.D. 05/15/2019 I35.0 Nonrheumatic aortic (valve) [facility] 05[facility]15/2019 R94.31 Abnormal electrocardiogram [ECG] [EKG] Rodolfo Landis M.D. 05/15/2019 I10 Essential (primary) [facility] 05/15/2019 I42.9 Cardiomyopathy, unspecified [facility], BRIGID 05/15/2019 R94.31 Abnormal electrocardiogram [ECG] [EKG[facility] SOLAR MANAGER 05/15/2019 I48.21 [facility] Plan of Treatment 06/26/2019 - [place], NPI35.0 Nonrheumatic aortic (valve) [...] me and seek medical evaluation.I48.21 Permanent atrial fibrillationFollow up:in 7 days with RN with ECG at that timeZ79.01 buttermaker helper (current) use of [id number] Essential (primary) oawtkqyjynwfM63.1 Bradycardia, unspecifiedNew Orders:Holter Monitor, Ordered: Recommendations:Please stop Digoxin. I will order a 24 hour holter monitor to ensure your heart rate remains controlled off of Digoxin.E78.5 Hyperlipidemia, unspecifiedNew Medication:Atorvastatin Calcium 20 mg - 1 by mouth every day Functional Status Description No Information Available Mental Status Description No Information Available Referrals Description No Information Available
[2019-09-02 10:37] LABS: Activated Partial Thrombo Time 40.4 seconds (26.0-38.0)
[2019-09-02 10:47] LABS: ALT 13 U/L (7-52); AST 10 U/L (13-39); Albumin 2.7 g/dL (3.2-5.2); Alkaline Phosphatase 89 U/L (34-104); Anion Gap 10 mmol/L (2-11); BUN/Creatinine Ratio 33.9 (8-20); Blood Urea Nitrogen 42 mg/dL (6-24); C Reactive Protein 82.11 mg/L (<8.01); CO2 Carbon Dioxide 28 mmol/L (22-32); Calcium 8.7 mg/dL (8.6-10.3); Chloride 103 mmol/L (101-111); EGFR African American 51.4 (>60); EGFR Non-African American 42.5 (>60); Globulin 2.7 g/dL (2-4); Glucose 99 mg/dL (70-100); Magnesium 2.1 mg/dL (1.9-2.7); Potassium 2.9 mmol/L (3.5-5.0); Sodium 141 mmol/L (135-145); Total Protein 5.4 g/dL (6.4-8.9)
[2019-09-02 10:52] LABS: Troponin I 0.17 ng/mL (<0.03)
[2019-09-02] MEDS ORDERED: Potassium Chlor TAB* 20 MEQ TAB.ER PO ONE (10:57)
[2019-09-02 11:00] LABS: Digoxin < 0.3 ng/ml (0.8-2.0)
[2019-09-02] MEDS ORDERED: Diltiazem IV BAG* D5W Premix 125 MG/125 ML BAG IV ONE (11:00)
[2019-09-02] MEDS ORDERED: Diltiazem IV push/loading dose 5 MG/ML 5 ML vial (25 mg) IV SLOW PU ONE (11:00)
[2019-09-02 11:15] LABS: TSH (Thyroid Stimulating Horm) 6.79 mcIU/mL (0.34-5.60)
[2019-09-02] MEDS ORDERED: KCL 10 MEQ/50 ML IVPREMIX* 10 MEQ/50 ML BAG IV ONE (11:26)
[2019-09-02 11:39] LABS: INR 3.52 (0.82-1.09)
[2019-09-02] MEDS: KCL 20 MEQ/100 ML IVPREMIX* 20 MEQ/100 ML BAG IV SCH ×4 (11:54→22:24)
[2019-09-02] MEDS ORDERED: Ondansetron INJ* 2 MG/ML VIAL IV PRN (12:21)
[2019-09-02] MEDS ORDERED: Al Hydrox/Mg Hydrox/Simet LIQ* 30 ML UDC PO PRN (12:21)
[2019-09-02] MEDS ORDERED: Senna TAB 8.6 mg* TAB PO PRN (12:21)
[2019-09-02] MEDS ORDERED: Acetaminophen TAB* 325 MG PO PRN (12:21)
[2019-09-02] MEDS ORDERED: Potassium Chloride* LIQUID 20 MEQ/15 ML UDC PO ONE (12:30)
[2019-09-02] MEDS ORDERED: cefTRIAXone(*) 1 GM in NS 0.9% 50 ML* 50 ML IVPB ONE (12:34)
[2019-09-02 13:42] LABS: Troponin I 0.16 ng/mL (<0.03)
[2019-09-02 13:58] LABS: Free T4 0.26 ng/dL (0.61-1.12)
[2019-09-02] MEDS ORDERED: Albuterol HFA INHALER* 8 gm MDI INH PRN (13:59)
[2019-09-02] MEDS ORDERED: Diltiazem IV BAG* D5W Premix 125 MG/125 ML BAG IV SCH ×2 (14:00→16:52)
[2019-09-02] MEDS ORDERED: Diltiazem TAB* 30 MG PO SCH (14:00)
[2019-09-02 15:07] LABS: Urine Appearance Turbid; Urine Bilirubin Negative (Negative); Urine Blood 2+ (Negative); Urine Glucose Negative (Negative); Urine Ketones Negative (Negative); Urine Nitrite Negative (Negative); Urine Protein 3+(>=500 mg/dL) (Negative); Urine Specific Gravity 1.014 (1.010-1.030); Urine Urobilinogen Negative (Negative)
[2019-09-02] MEDS: Diltiazem TAB* 30 MG PO SCH ×2 (15:08→20:50)
[2019-09-02 15:15] LABS: Urine Bacteria 2+ (Absent); Urine Red Blood Cell 3+(>10/hpf) (Absent); Urine White Blood Cell 2+(11-20/hpf) (Absent)
[2019-09-02] MEDS ORDERED: DIGOXIN 0.125 MG PO SCH (15:15)
[2019-09-02 15:16] LABS: Urine Color Red
[2019-09-02] MEDS ORDERED: Digoxin IV* 0.5 MG/2 ML AMP (0.25 MG/ML) IV SLOW PU ONE (15:17)
--- NOTE | 2019-09-02 16:01 | HP ---
ADDENDUM NOW INCLUDED ON THIS REPORT CC: Dr. Vallejo * HISTORY AND PHYSICAL: DATE OF ADMISSION: 09/02/19 PROVIDER: TATO Sutherland ATTENDING PHYSICIAN WHILE IN THE HOSPITAL: Dr. Elisabeth Davis * (dictated by TATO Sutherland). PRIMARY CARE PROVIDER: Dr. Vallejo. CHIEF COMPLAINT: Altered mental status. HISTORY OF PRESENT ILLNESS: Kae Rhodes is a 74-year-old white female with past medical history significant for atrial fibrillation, on Coumadin; hyperlipidemia; hypertension; hypothyroidism; COPD; osteoporosis; ANDRESSA, on CPAP; depression; right eye cataract; recent nuclear stress test, which demonstrated possible small infarct to the anterior wall in June 2019; and possible prior LA, who presents to the emergency department via EMS from her home due to her daughter finding her at home with altered mental status. The patient is a poor historian at this time due to her mental status and much of the history is gathered from her daughter who is at bedside. The patient's daughter tells me that the patient's son and she have been checking in on the patient for the last several days and the patient has not gotten out of bed for 3 to 4 days including urinating and having bowel movements in bed. The patient's daughter checked in on her yesterday evening and she was only answering questions appropriately half the time. At this time, the daughter tried to urge the patient to come to the emergency department and the patient refused. The patient 's daughter tells me the patient additionally refused being cleaned up. The patient's daughter then checked in on her again this morning and she was much more incoherent reportedly, answering almost no questions appropriately and she called EMS. The patient has had ongoing weight loss. She has been incontinent of bowels and urine mostly because she is too weak to get out of bed to toilet. The patient is unable to tell me if she has been feeling fever or chills. She tells me she has been feeling abdominal cramps. She has been feeling more fatigued since July. She has had ongoing vaginal bleeding, which she was evaluated for in May of 2019 and she was supposed to have outpatient followup. I did discuss this with her primary care provider's office and they have scheduled 2 to 3 gynecological as well as game programer/onc appointments for this patient and she has not been able to attend these appointments. The patient's daughter tells me that she is just too weak to get out of bed to go to the appointments. EMERGENCY DEPARTMENT COURSE: When the patient arrived to the emergency department, she had an EKG, which demonstrated AFib with RVR and rate of 140s. She was already given a liter of fluid in the ambulance and she was given another liter bolus in the emergency department. The patient was started on diltiazem drip. Her lactic acid was found to be elevated and the hospitalists were asked to evaluate the patient for admission. PAST MEDICAL HISTORY: 1. Atrial fibrillation, on Coumadin. 2. Hyperlipidemia. 3. Hypertension. 4. Hypothyroidism. 5. COPD. 6. Osteoarthritis. 7. Osteoporosis. 8. ANDRESSA, on CPAP. 9. Depression. 10. Right eye cataract. 11. Possible prior LA given possible small infarct in the anterior wall demonstrated on nuclear stress test on the nuclear scan in June of 2019. 12. Known history of vaginal bleeding with previous transvaginal ultrasound demonstrating endometrial stripe of 16 mm. PAST SURGICAL HISTORY: Unable to obtain as the patient is altered. MEDICATIONS: 1. Synthroid 150 mcg p.o. daily. 2. Lipitor 20 mg p.o. daily. 3. Digoxin 0.125 mg p.o. daily. 4. Diltiazem 120 mg p.o. daily. 5. Lisinopril 10 mg p.o. daily. Of note, the medical reconciliation is in the process of being checked as the patient is a poor historian and her daughter does not know the medications she is taking. Medication list from PCP is in process. ALLERGIES: No known drug allergies. FAMILY HISTORY: Father of an LA. Mother due to cancer, did have history of breast cancer. The patient's sisters of heart failure. SOCIAL HISTORY: The patient has a previous smoking history and is unable to tell me at this time if she is currently smoking. She denies alcohol or drug use. She is retired and lives alone. At this time, she is full code and if she needs surrogate medical decision maker, she would like her daughter, Tanya Li, to do so. Her phone number is [phone]. REVIEW OF SYSTEMS: An 11-point review of systems was completed and all pertinent positives and negatives are above in the HPI. All other systems are negative. PHYSICAL EXAMINATION GENERAL: An elderly white female, lying in hospital bed, appearing comfortable , in no acute distress. VITAL SIGNS: Temperature 98.1 degrees Fahrenheit; heart rate 151, later 90 beats per minute after diltiazem drip; respiratory rate 18; oxygen saturation 99 % on room air; blood pressure 137/95, later 109/66 after diltiazem drip. HEENT: Eyes: PERRL. Sclerae anicteric. EOMI. ENT: Mucous membranes appear very dry including lips and tongue. NECK: No JVD. LUNGS: Clear to auscultation throughout. CARDIO: Tachycardic. Unable to appreciate rhythm due to tachycardia. No appreciable murmurs, rubs, or gallops. ABDOMEN: Normoactive bowel sounds x4 quadrants. The abdomen is soft, nontender , nondistended. EXTREMITIES: Tortuous superficial varicosities. No clubbing, cyanosis, or edema. NEURO: The patient is alert, oriented to self and time, but not location or situation. The patient is unable to answer questions appropriately at times. The patient has strength of 4/5 in bilateral lower extremities and 4/5 bilateral upper extremities. Sensation is grossly intact to light touch throughout. Tongue is midline. Face is symmetrical. The patient is minimally dysarthric, though this is secondary to her poor dentition. SKIN: Wound with clean bed approximately 3 cm in diameter eek on the left hip. Extensive erythema and open wounds in the groin and by the medial thighs, I suspect secondary to maceration from incontinence as well as what appears to be stage 2 pressure wounds secondary to maceration and pressure on the bilateral ischia. The patient has petechiae scattered disseminated throughout her anterior chest, her back and her abdomen. DIAGNOSTIC STUDIES/LAB DATA: Urinalysis is pending at this time. Chest x-ray: Mild cardiomegaly. No active cardiopulmonary disease. EKG: Irregularly irregular rhythm, rate 141 beats per minute consistent with AFib with rapid ventricular response, normal axis. No ST elevations or depressions are appreciable. White blood cell count 15.1, hemoglobin 10.5, hematocrit 32, platelet count 108. INR 3.52, APTT 40.4. Sodium 141, potassium 2.9, chloride 103, carbon dioxide 28, anion gap 10, BUN 42, creatinine 1.24, glucose 99, lactic acid 2.8, calcium 8.7, magnesium 2.1. Total bili 1.4, AST 10, ALT 13, alk phos 89. Troponin 0.17, CRP 82.11, BNP 54. TSH 6.79. Digoxin less than 0.3. ASSESSMENT AND PLAN: Kae Rhodes is a 74-year-old white female with past medical history significant for atrial fibrillation, on Coumadin; hyperlipidemia ; hypertension; hypothyroidism; chronic obstructive pulmonary disease; and possible previous myocardial infarction, who presents to the emergency department due to altered mental status. The patient will be admitted for: 1. Severe sepsis secondary to suspected urinary tract infection. I suspect the patient meets criteria for sepsis as she has leukocytosis with white blood cell count of 15.1 as well as lactic acid of 2.8. We will continue to trend her lactic acid every 3 hours until normalized. At this time, I am unfortunately still awaiting a urinalysis; however, I do suspect that this would be the most likely cause for the patient's infection as she has been incontinent of bowel and urine for several days and she was found to be sitting in her own feces for at least 2 days by her daughter. She already had blood cultures drawn and I will start ceftriaxone as empiric coverage. There are no previous urine cultures in the system for comparison. Her chest x-ray does not demonstrate consolidation and I do not believe she meets clinical criteria for pneumonia. She has already received 2 L of fluid bolus and I will continue 100 cc per hour of normal saline and we will follow urine culture. The patient's elevated bilirubin is likely secondary to this. Her wounds, which are discussed further below, may also be a source of infection. 2. Atrial fibrillation with rapid ventricular response. I suspect this is due , in part, to the patient not taking her typical medications for the last several days. At this time, it is unclear to me whether she takes digoxin. I will hold on this for now, but I will give her p.o. diltiazem short-acting 30 mg every 6 hours and restart her diltiazem long-acting tomorrow morning, and at this time she is on a diltiazem drip currently running at 10 mg per hour and this will be weaned as tolerated especially considering that her diltiazem will be restarted. We are working on checking her medication list. She does take Coumadin at home, which she has not been taking for the last several days and despite this her INR is still elevated. I think that if she is going to continue with anticoagulation, a different oral anticoagulant should be considered for her. I will be holding her Coumadin for now. Last time she was in the hospital, her INR was 10. I do suspect that her atrial fibrillation with rapid ventricular response is also a component of her hypokalemia. Further discussion below. 3. Hypokalemia. The patient's potassium is 2.9. She has received oral potassium in the emergency department and I will order 60 mEq IV and I will repeat her BMP later to determine if further dosing needs to be continued. Her magnesium is fine at this time. I suspect this is likely due to poor oral intake as the patient has been bedridden for the last several days. 4. Acute kidney injury. The patient has a creatinine of 1.24 and BUN of 42. This is above her baseline. I believe this is likely prerenal in the setting of her acute illness and overt dehydration and I will continue IV fluids as previously mentioned at 100 cc per hour. 5. Hypothyroidism. The patient's TSH is elevated at 6.79 and she takes 150 mcg of levothyroxine at home. I believe this dose needs to be increased. It is possible that she has not been taking it for several weeks and it is also possible this has been contributing to her ongoing fatigue. 6. Vaginal bleeding. I believe that this patient has a high concern for gynecological malignancy. She was having vaginal bleeding in May of 2019 and transvaginal ultrasound demonstrated an endometrial stripe of 16 mm. Additionally she has had a 17 kg weight loss in 4 months. I have discussed this case with Dr. Tyrell Pineda, the equipment mechanic specialist. Given the patient's acute infection, it would be unsafe to perform endometrial biopsy at this time. Additionally, endometrial biopsy is not performed inpatient in this facility. He suggests close followup with him. Unfortunately, the patient has not been able to make it to any of the multiple gynecology appointments that Dr. Vallejo's office has scheduled since the last hospitalization. The patient's daughter states that the patient has not attended due to fatigue and I believe that her family needs to be involved in trying to get her to these appointments for followup and perhaps Case Management can help coordinate this. 7. Chronic obstructive pulmonary disease. At this time, since I am awaiting the medical reconciliation and I do not see any inhalers, I will order p.r.n. albuterol. 8. Obstructive sleep apnea. The patient uses CPAP at home and I will continue this while in the hospital. 9. Depression. The patient was previously taking an SSRI and I do not believe she is taking it at this time. I will await her medication list from her primary care provider and restart SSRIs as needed. 10. Hypertension. The patient takes lisinopril at home. I will hold this in the setting of her acute kidney injury and dehydration. 11. Hyperlipidemia. The patient takes Lipitor at home and I will continue this. 12. Petechiae. The patient has thrombocytopenia with platelet count of 108 and she does have an elevated INR. I am holding her Coumadin as previously mentioned. I will continue to follow her platelet count. No need for intervention at this time. 13. Decubitus ulcers. The patient has decubitus ulcers on her ischium bilaterally. She additionally has wounds in her inner thighs. I believe this is due to maceration from her urinary and fecal incontinence. I believe this patient would be a good candidate for a noninvasive urinary catheter. We will evaluate if these are yet available on the floor and wound consult has been requested. 14. FEN: The patient may have a regular unrestricted diet. Fluids as previously mentioned and electrolytes as previously mentioned with replacement of her potassium. 15. DVT prophylaxis: The patient has supratherapeutic INR at this time. I will order SCDs. 16. Code status: The patient is full code. TIME SPENT: Approximately 60 minutes was spent on this admission, approximately half this time was spent at bedside evaluating the patient and discussing the plan of care. This case has been reviewed by my attending, Dr. Elisabeth Davis, and she agrees with this plan of care. TATO SUTHERLAND ADDENDUM: HOME MEDICATIONS LIST: 1. Potassium chloride 10 mEq p.o. daily. 2. Coumadin 2.5 mg p.o. daily. 3. Spiriva 1 cap inhaled p.o. daily. 4. Zoloft 200 mg p.o. at bedtime. 5. Albuterol 90 mcg inhaled q.4 hours p.r.n. shortness of breath/wheezing. 6. Zofran 4 mg p.o. q.8 hours p.r.n. nausea, vomiting. 7. Metoprolol succinate 25 mg p.o. q.12 hours. 8. Synthroid 150 mcg p.o. daily. 9. Lasix 40 mg p.o. every other day. 10. Fluticasone 2 puffs inhaled b.i.d. 11. Vitamin D3 50,000 units p.o. q.7 days. 12. Flexeril 10 mg p.o. t.i.d. p.r.n. pain. 13. Lipitor 10 mg p.o. daily. 14. Fosamax 70 mg p.o. weekly. 15. Digoxin 0.125 mg p.o. daily. 16. Diltiazem 120 mg p.o. daily. 17. Lisinopril 10 mg p.o. daily. In regards to the patient's atrial fibrillation, I will be giving her 1 dose 0.25 mg IV digoxin and then restarting her digoxin p.o. tomorrow morning. I will continue her home Zoloft. Holding her home Lasix due to dehydration and we will continue her home inhalers and holding her on home Coumadin as previously mentioned. TATO SUTHERLAND [id number]/[facility] #: [id number]/[facility]PS #: [id number] VIC
[2019-09-02 16:40] LABS: Hematocrit 29 % (35-47); Hemoglobin 9.6 g/dL (12.0-16.0); Mean Corpuscular HGB Conc 33 g/dL (31-36); Mean Corpuscular Hemoglobin 34 pg (27-31); Mean Corpuscular Volume 105 fL (80-97); Red Cell Distribution Width 19 % (10-15); White Blood Count 14.3 10^3/uL (3.5-10.8)
[2019-09-02 16:54] LABS: BUN/Creatinine Ratio 33.9 (8-20); EGFR African American 56.1 (>60); EGFR Non-African American 46.4 (>60); Potassium 3.4 mmol/L (3.5-5.0)
[2019-09-02] MEDS ORDERED: ALBUTEROL SULFATE 90 MCG INH PRN (16:59)
[2019-09-02] MEDS ORDERED: Digoxin TAB* 0.125 MG PO SCH (17:00)
[2019-09-02 17:08] LABS: Mean Platelet Volume 11.2 fL (7.4-10.4); Platelet Count 92 10^3/uL (150-450)
--- NOTE | 2019-09-02 18:06 | HP ---
HISTORY AND PHYSICAL: ADDENDUM: HOME MEDICATIONS LIST: 1. Potassium chloride 10 mEq p.o. daily. 2. Coumadin 2.5 mg p.o. daily. 3. Spiriva 1 cap inhaled p.o. daily. 4. Zoloft 200 mg p.o. at bedtime. 5. Albuterol 90 mcg inhaled q.4 hours p.r.n. shortness of breath/wheezing. 6. Zofran 4 mg p.o. q.8 hours p.r.n. nausea, vomiting. 7. Metoprolol succinate 25 mg p.o. q.12 hours. 8. Synthroid 150 mcg p.o. daily. 9. Lasix 40 mg p.o. every other day. 10. Fluticasone 2 puffs inhaled b.i.d. 11. Vitamin D3 50,000 units p.o. q.7 days. 12. Flexeril 10 mg p.o. t.i.d. p.r.n. pain. 13. Lipitor 10 mg p.o. daily. 14. Fosamax 70 mg p.o. weekly. 15. Digoxin 0.125 mg p.o. daily. 16. Diltiazem 120 mg p.o. daily. 17. Lisinopril 10 mg p.o. daily. In regards to the patient's atrial fibrillation, I will be giving her 1 dose 0.25 mg IV digoxin and then restarting her digoxin p.o. tomorrow morning. I will continue her home Zoloft. Holding her home Lasix due to dehydration and we will continue her home inhalers and holding her on home Coumadin as previously mentioned. TATO GOLDSMITH [id number]/[place] #: [id number] [facility]
[2019-09-02] MEDS: Mometasone 220 MCG MDI INH SCH (19:11)
--- NOTE | 2019-09-02 19:24 | CONSULT ---
Subjective Date of Service: 09/02/19 Interval History: Ms. Rhodes is a 74 yo female with PMH significant for A fib, HLD, HTN, hypothyroidism, COPD, osteoarthritis, osteoporosis, ANDRESSA on CPAP, depression, CAD , dementia, and vaginal bleeding; who presented to the emergency room for altered mental status. She was admitted to the hospital for severe sepsis secondary to UTI, A fib with RVR, hypokalemia, VELVET, and vaginal bleeding with concern for malignancy. Pt is unable to give history, Per the H+P she was unable to get out of bed for 3 -4 days and had been incontinent and refused care from her family. She presented to the hospital with multiple open areas to bilateral thighs, buttocks , and left hip. Patient seen and examined at bedside. Verbal consent given for wound consult and photographs. Family History: Unchanged from Admission Social History: Unchanged from Admission Past Medical History: Unchanged from Admission Review of Systems - Measurements Intake and Output: Intake and Output Last 24 Hours 08/31/19 09/01/19 09/02/19 09/03/19 06:59 06:59 06:59 06:59 Intake Total 6.5 Balance 6.5 Weight 145 lb Intake: IV Fluids 2000 Medicated IV 26.5 GEN - Diltiazem/Cardizem 26.5 Other: # Bowel Movements 1 Estimated Stool Amount Medium - Review of Systems General Comments: Pt able to only answer limited ROS Constitutional Symptoms: Negative: Fever, Other - Chills Dermatology: Positive: Other - Open wounds to buttocks Objective Active Medications: Acetaminophen (Tylenol Tab*) 650 mg PO Q4H PRN Reason: MILD PAIN or TEMP > 100.4 Al Hydrox/Mg Hydrox/Simethicone (Maalox Plus*) 30 ml PO Q6H PRN Reason: INDIGESTION Albuterol (Ventolin Hfa Inhaler*) 2 puff INH Q4H PRN Reason: SOB/WHEEZING Atorvastatin Calcium (Lipitor*) 20 mg PO DAILY MUNIR Digoxin (Lanoxin Tab*) 0.125 mg PO 1700 MUNIR Diltiazem HCl (Cardizem Cd Cap*) 120 mg PO DAILY MUNIR Diltiazem HCl (Cardizem Tab*) 30 mg PO Q6H MUNIR Stop: 09/03/19 08:00 Sodium Chloride (Ns 0.9% 1000 Ml) 1,000 mls @ 100 mls/hr IV PER RATE [facility] Ceftriaxone Sodium 1 gm/ (Sodium Chloride) 50 mls @ 100 mls/hr IVPB Q24H MUNIR Potassium Chloride (Potassium Chloride 20 Meq/100 Ml Ivpremix*) 20 meq in 100 mls @ 50 mls/hr IV Q2H MUNIR Stop: 09/02/19 21:59 Levothyroxine Sodium (Synthroid Tab*) 175 mcg PO 0600 [facility] Metoprolol Succinate (Toprol Xl Tab*) 25 mg PO Q12HR MUNIR Mometasone Furoate (Asmanex 220 Mcg Mdi *) 2 puff INH QPM [facility] Ondansetron HCl (Zofran Inj*) 4 mg IV Q4H PRN Reason: NAUSEA/VOMITING Potassium Chloride (Klor Con Er Tab*) 10 meq PO DAILY [facility] Senna (Senokot 8.6 Mg Tab*) 1 tab PO BID PRN Reason: CONSTIPATION Sertraline HCl (Zoloft*) 200 mg PO BEDTIME [facility] Tiotropium Emmet (Spiriva Respimat 2.5 Mcg) 2 puff INH DAILY [facility] Vital Signs 09/02/19 09/02/19 09/02/19 14:27 15:00 15:07 Temperature 97.7 F Pulse Rate 133 102 Respiratory 20 Rate Blood Pressure 114/81 123/71 126/73 (mmHg) O2 Sat by Pulse 94 98 Oximetry Appearance: NAD, laying in bed Ears/Nose/Mouth/Throat: Mucous Membranes Moist Respiratory: Symmetrical Chest Expansion and Respiratory Effort Skin: - - See skin note below Neurological: Alert and Oriented x 3 - , with confusion Result Diagrams: 09/04/19 05:56 09/04/19 07:05 Additional Lab and Data: Above labs were pulled in to the note, when the note was edited prior to signing. See below for labs from the day of consultation. Laboratory Tests 09/02/19 09/02/19 09/02/19 10:13 16:12 16:12 WBC 14.3 H Hgb 9.6 L Hct 29 L Plt Count 92 L Sodium 142 Potassium 3.4 L Chloride 107 Carbon Dioxide 24 BUN 39 H Creatinine 1.15 H Glucose 105 H Total Protein 5.4 L Albumin 2.7 L Skin Deviation Note - Skin Deviation Findings Left lateral hip - There are 2 open areas. The smaller wound measures 1 cm x 0.8 cm x 0.1 cm. The wound base is pink granulation tissue. The surrounding skin is intact. There is scant drainage. The larger wound measures 3.5 cm x 2.5 cm x 0.1 cm. The wound base is 80% red granulation tissue and 20% adherent yellow slough. There is scan drainage. The surrounding skin is intact. Left medial thigh - There is an area of superficial open skin and erythema, the area is 5 cm x 8 cm x > 0.1 cm. The wound base is red epithelial tissue. The surrounding skin is intact. There is scant drainage. Right medial thigh - There is a cluster of open areas, measures 10.5 cm x 4 cm x 0.1 cm. The wound base is red and pink epithelial tissue. The surrounding skin is intact. There is scant drainage. Buttocks -There are open areas to bilateral buttocks. The left buttock open area measures, 7 cm x 8 cm x 0.1 cm. The wound base is pink epithelial tissue. The surrounding skin is intact. There is scant drainage. The right buttock open area measures, 7 cm x 3.5 cm x 0.1 cm. The wound base is red epithelial tissue with some small epithelial islands. The surrounding skin is intact. There is scant drainage. Right lateral thigh - There is an area of erythema, measures 5 cm x 11 cm. Wound Problem/Plan Assessment: Ms. Rhodes is a 74 yo female with PMH significant for A fib, HLD, HTN, hypothyroidism, COPD, osteoarthritis, osteoporosis, ANDRESSA on CPAP, depression, CAD , dementia, and vaginal bleeding; who presented to the emergency room for altered mental status. She was admitted to the hospital for severe sepsis secondary to UTI, A fib with RVR, hypokalemia, VELVET, and vaginal bleeding with concern for malignancy. She presented to the hospital with multiple open areas to bilateral thighs, buttocks, and left hip. 1. Incontinence associated skin breakdown (bilateral thighs and buttocks). Perform incontinence care as needed. Recommend applying barrier cream (orange top) to the areas as needed. Frequent turning and repositioning. Use friction reduction device to move in bed. Will add a prealbumin to the last labs. 2. Left lateral hip, stage 3 pressure injury. Recommend applying border foam dressing (i.e. Optifoam), and change every 3 days or as needed for soiling. Frequent turning and repositioning. Will add a pre-albumin to the last labs. 3. A fib. On warfarin, this may affect wound healing. 4. Nutrition. Recommend meeting requirements to assist with wound healing ( Protein 1.2-1.5 grams/kg per day and Calories 30-35 kcal/kg per day). Regular diet. 5. Code Status. Full Code Status. 6. Disposition. Inpatient, disposition per primary medicine team. TIME SPENT: Time for this wound consultation was 50 minutes and 40 minutes was spent with the patient assessing, measuring, and photographing the wounds. Is Patient a Wound Clinic Patient: No Attending: Cindy Roberson
[2019-09-02] MEDS ORDERED: Vitamins A & D OINT* 60 GM TUBE TOPICAL PRN (20:03)
[2019-09-02] MEDS: NS 0.9% 1000 ML** 1,000 ML IV SCH (20:41)
[2019-09-02] MEDS: Sertraline* 100 MG TAB PO SCH (20:44)
--- NOTE | 2019-09-02 21:19 | PN ---
Sepsis Event Evaluation Date of Evaluation: 09/02/19 Time of Evaluation: 16:50 Current Stage of Sepsis: Severe Sepsis Vital Signs - Last 12 Hours: Vital Signs - 12 hr Temp Pulse Resp BP Pulse Ox 09/02/19 18:11 119/53 09/02/19 18:06 111/52 09/02/19 18:02 117/52 09/02/19 17:56 121/51 09/02/19 17:51 110/50 09/02/19 17:46 132/58 09/02/19 17:41 103/54 09/02/19 17:36 109/71 09/02/19 17:32 98 09/02/19 17:31 118/58 09/02/19 17:27 124/63 09/02/19 17:17 125/46 09/02/19 17:13 97/65 09/02/19 17:06 111/54 09/02/19 17:01 110/59 09/02/19 16:56 124/55 09/02/19 16:51 116/51 09/02/19 16:46 116/55 09/02/19 16:41 122/64 09/02/19 16:38 123/60 09/02/19 16:31 120/67 09/02/19 16:16 114/62 09/02/19 16:02 133/71 09/02/19 16:01 125/94 09/02/19 15:46 96 09/02/19 15:42 110/86 09/02/19 15:33 117/61 09/02/19 15:32 132/67 09/02/19 15:30 20 09/02/19 15:21 120/99 09/02/19 15:17 127/53 09/02/19 15:12 128/60 09/02/19 15:07 126/73 09/02/19 15:00 97.7 F 102 20 123/71 98 09/02/19 14:27 133 114/81 94 09/02/19 14:23 185 119/67 85 09/02/19 14:18 124 122/47 90 09/02/19 14:12 126 121/78 95 09/02/19 14:08 162 112/85 87 09/02/19 14:03 155 123/82 88 09/02/19 14:01 123 83 09/02/19 13:59 146 150/107 89 09/02/19 13:33 88 118/69 97 09/02/19 13:17 21 115/91 09/02/19 13:12 87 16 109/72 91 09/02/19 13:07 93 23 116/67 92 09/02/19 13:02 82 13 137/115 99 09/02/19 13:00 94 16 100 09/02/19 12:57 92 13 114/73 98 09/02/19 12:53 100 17 121/69 98 09/02/19 12:12 91 16 109/66 99 09/02/19 12:07 124 20 105/74 89 09/02/19 12:02 136 27 128/101 94 09/02/19 12:00 20 09/02/19 11:58 108 24 128/94 90 09/02/19 11:41 103 16 136/102 94 09/02/19 11:07 20 124/96 09/02/19 11:00 17 09/02/19 10:07 155 97/74 78 09/02/19 10:02 130 100 09/02/19 09:50 151 09/02/19 09:37 98.1 F 90 18 137/95 100 Lactic Acid: 09/02/19 09/02/19 09/02/19 10:12 13:08 17:30 Lactic Acid 2.8 H* 2.4 H* 2.5 H* - Cardiopulmonary Exam Capillary Refill: Immediate Respiratory: Symmetrical Chest Expansion and Respiratory Effort Cardiovascular: No Edema, - - irregularly irregular rhythm, tachycardia to 100s - Peripheral Pulse Exam Radial Pulses: Bilateral Normal - Skin Exam Skin Exam: Normal Turgor - petechiae persistent - Justin Coma Scale Best Eye Response: 4 - Spontaneous Best Motor Response: 6 - Obeys Commands Best Verbal Response: 4 - Confused Coma Scale Total: 14 Assess/Plan/Problems-Billing Assessment: 74 yo female with significant PMHx afib, HTN, hypothyroidism presents with altered mental status, found to have afib with RVR, hypokalemia, and severe sepsis secondary to likely UTI in setting of urinary and bowel incontinence. Patient continues to have severe sepsis as lactic acid has not yet normalized. Ordered additonal 1L fluid bolus and will run continuous fluids 100c/hr after that. Will continue to repeat lactic acid q3h until normalized. Tachycardia resolved, downtitrating dilt drip. No hypotension. UA has since been completed and appears consistent with UTI as suspected. Culture pending. Status and Disposition: Inpatient.
[2019-09-02] MEDS: Metoprolol Succinate XL TAB* 25 MG PO SCH (21:36)
[2019-09-03] MEDS: KCL 20 MEQ/100 ML IVPREMIX* 20 MEQ/100 ML BAG IV SCH ×3 (00:35→21:21)
[2019-09-03] MEDS: Diltiazem TAB* 30 MG PO SCH (03:13)
[2019-09-03] MEDS: Levothyroxine TAB* 175 MCG TAB PO SCH (05:10)
[2019-09-03] MEDS: Metoprolol Succinate XL TAB* 25 MG PO SCH ×3 (05:10→21:32)
[2019-09-03] MEDS ORDERED: Potassium Chlor TAB* 10 MEQ TAB.ER PO SCH (09:00)
[2019-09-03] MEDS ORDERED: Diltiazem CD CAP* 240 MG PO SCH (09:00)
[2019-09-03] MEDS: NS 0.9% 1000 ML** 1,000 ML IV SCH ×2 (09:25→15:39)
[2019-09-03] MEDS: Atorvastatin* 20 MG TAB PO SCH (09:25)
[2019-09-03] MEDS: cefTRIAXone(*) 1 GM in NS 0.9% 50 ML* 50 ML IVPB SCH (09:25)
[2019-09-03 09:46] LABS: ABS Eosinophils 0.1 10^3/ul (0-0.6); ABS Lymphocytes 0.7 10^3/ul (1.0-4.8); ABS Monocytes 0.3 10^3/ul (0-0.8); Eosinophil % 0.9 %; Hematocrit 32 % (35-47); Hemoglobin 10.5 g/dL (12.0-16.0); Lymphocyte % 4.7 %; Mean Corpuscular HGB Conc 33 g/dL (31-36); Mean Corpuscular Hemoglobin 34 pg (27-31); Mean Corpuscular Volume 104 fL (80-97); Nucleated Red Blood Cells % 0.1; Platelet Count 100 10^3/uL (150-450); Red Blood Count 3.06 10^6 /uL (3.70-4.87); Red Cell Distribution Width 19 % (10-15); White Blood Count 14.2 10^3/uL (3.5-10.8)
[2019-09-03 09:52] LABS: INR 2.92 (0.82-1.09)
[2019-09-03] MEDS: Diltiazem TAB* 60 MG PO SCH ×2 (09:54→17:17)
[2019-09-03 10:03] LABS: ALT 15 U/L (7-52); Albumin 2.8 g/dL (3.2-5.2); Albumin/Globulin Ratio 1.1 (1-3); Alkaline Phosphatase 85 U/L (34-104); BUN/Creatinine Ratio 32.7 (8-20); Blood Urea Nitrogen 36 mg/dL (6-24); CO2 Carbon Dioxide 24 mmol/L (22-32); Calcium 8.2 mg/dL (8.6-10.3); Chloride 111 mmol/L (101-111); EGFR African American 59.1 (>60); EGFR Non-African American 48.8 (>60); Globulin 2.6 g/dL (2-4); Glucose 72 mg/dL (70-100); Sodium 142 mmol/L (135-145); Total Protein 5.4 g/dL (6.4-8.9)
--- NOTE | 2019-09-03 10:06 | PN ---
Subjective Date of Service: 09/03/19 Interval History: Pt is pleasant, awake, but confused. When asked about todays' date keeps on repeating her age. Denies pain. Said "yes" when asked if she lives with someone, but couldn't say who. Pt stated that she has had vaginal bleeding for "quite some time" Family History: Unchanged from Admission Social History: Unchanged from Admission Past Medical History: Unchanged from Admission Objective Active Medications: Acetaminophen (Tylenol Tab*) 650 mg PO Q4H PRN PRN Reason: MILD PAIN or TEMP > 100.4 Last Admin: 09/03/19 03:14 Dose: 650 mg Al Hydrox/Mg Hydrox/Simethicone (Maalox Plus*) 30 ml PO Q6H PRN PRN Reason: INDIGESTION Albuterol (Ventolin Hfa Inhaler*) 2 puff INH Q4H PRN PRN Reason: SOB/WHEEZING Atorvastatin Calcium (Lipitor*) 20 mg PO DAILY [facility] Last Admin: 09/03/19 09:25 Dose: 20 mg Diltiazem HCl (Cardizem Tab*) 60 mg PO Q6HR [facility] Last Admin: 09/03/19 09:54 Dose: 60 mg Sodium Chloride (Ns 0.9% 1000 Ml) 1,000 mls @ 100 mls/hr IV PER RATE [facility] Last Admin: 09/03/19 09:25 Dose: 100 mls/hr Ceftriaxone Sodium 1 gm/ (Sodium Chloride) 50 mls @ 100 mls/hr IVPB Q24H [facility] Last Admin: 09/03/19 09:25 Dose: 100 mls/hr Levothyroxine Sodium (Synthroid Tab*) 175 mcg PO 0600 [facility] Last Admin: 09/03/19 05:10 Dose: 175 mcg Metoprolol Succinate (Toprol Xl Tab*) 25 mg PO Q12HR [facility] Last Admin: 09/03/19 09:25 Dose: 25 mg Mometasone Furoate (Asmanex 220 Mcg Mdi *) 2 puff INH QPM [facility] Last Admin: 09/02/19 19:11 Dose: Not Given Ondansetron HCl (Zofran Inj*) 4 mg IV Q4H PRN PRN Reason: NAUSEA/VOMITING Potassium Chloride (Klor Con Er Tab*) 10 meq PO DAILY [facility] Last Admin: 09/03/19 09:25 Dose: 10 meq Senna (Senokot 8.6 Mg Tab*) 1 tab PO BID PRN PRN Reason: CONSTIPATION Sertraline HCl (Zoloft*) 200 mg PO BEDTIME [facility] Last Admin: 09/02/19 20:44 Dose: 200 mg Tiotropium [place] (Spiriva Respimat 2.5 Mcg) 2 puff INH DAILY [facility] Vitamin A/Vitamin D (Vitamin A & D Oint*) 1 applic TOPICAL TID PRN PRN Reason: skin breakdown Last Admin: 09/02/19 21:30 Dose: 1 applic Vital Signs - 8 hr 09/03/19 03:00 Temperature 97.4 F Pulse Rate 109 Respiratory 20 Rate Blood Pressure 120/60 (mmHg) O2 Sat by Pulse 97 Oximetry Oxygen Devices in Use Now: None Appearance: 74 yo f in nAD, oriented to self only, pleasant, cooperative and verbal Eyes: No Scleral Icterus, PERRLA Ears/Nose/Mouth/Throat: NL Teeth, Lips, Gums, Mucous Membranes Moist Neck: NL Appearance and Movements; NL JVP, Trachea Midline Respiratory: Symmetrical Chest Expansion and Respiratory Effort, - - crackles at b/l bases Cardiovascular: - - irregular, tachy Abdominal: NL Sounds; No Tenderness; No Distention, No Hepatosplenomegaly Lymphatic: No Cervical Adenopathy Extremities: No Clubbing, Cyanosis, - - trace pedal edema b/l Skin: - - diffuse petechiae like ecchymoses on upper abd b/l proximal UE's likely related /inflicted when pt was attempted/helped to be moved. stage 3 left hip decub at 3 cm. bottock and medial upper thighs skin breakdown from moisture Neurological: - - generalized muscle weakness due to deconditioning, no focal deficit Result Diagrams: 09/03/19 06:00 09/03/19 11:20 Additional Lab and Data: Above labs were pulled in to the note, when the note was edited prior to signing. See below for labs from the day of consultation. Laboratory Tests 09/02/19 09/02/19 09/02/19 10:13 16:12 16:12 WBC 14.3 H Hgb 9.6 L Hct 29 L Plt Count 92 L Sodium 142 Potassium 3.4 L Chloride 107 Carbon Dioxide 24 BUN 39 H Creatinine 1.15 H Glucose 105 H Total Protein 5.4 L Albumin 2.7 L Microbiology and Other Data: Microbiology 09/02/19 10:11 Stool Occult Blood (BRENDA) - Final Stool Assess/Plan/Problems-Billing Assessment: 74 yo female with significant PMHx afib, HTN, hypothyroidism presents with altered mental status, found to have afib with RVR, hypokalemia, and severe sepsis secondary to likely UTI in setting of urinary and bowel incontinence. - Patient Problems (1) Severe sepsis Comment: source is gram negative bacteremia likely related to UTI will get renal US to r/o obstruction cont Ceftriaxone LA improving-no need to keep on rechecking it since trending down on current tx (2) Vaginal bleeding Comment: as per d/w [facility] DRAW[facility] IN at admisison - they do not the equipement to perform uterine bx in hospital that would not be indicated in pt with bacteremia anyway (3) Atrial fibrillation Comment: uncontroled with HR120's to 140's will d/c Cartia and place pt on a higher dose Cardizem IR start digoxin, cont toprol (4) Troponin I above reference range Comment: due to demand ischemia (5) VELVET (acute kidney injury) Comment: due to sepsis and dehydration, improving (6) Hypothyroidism Comment: TSH elevated , but pt has not been taking her meds at home cont home dose Synthroid for now (7) Encephalopathy acute Comment: due to sepsis (8) Electrolyte abnormality Comment: hypokalemia and hypomagnesemia-replacing IV and PO (9) DVT prophylaxis Comment: SCD's, no meds due to vaginal bleeding Status and Disposition: Inpatient.
[2019-09-03 10:15] LABS: Anion Gap 7 mmol/L (2-11)
[2019-09-03] MEDS ORDERED: Digoxin IV* 0.5 MG/2 ML AMP (0.25 MG/ML) IV SLOW PU ONE (10:46)
[2019-09-03] MEDS ORDERED: NS 0.9% 500 ML* 500 ML IV ONE (11:41)
[2019-09-03 11:54] LABS: Magnesium 1.3 mg/dL (1.9-2.7)
[2019-09-03] MEDS: SPIRIVA Respimat* (tiotropium) 2.5 mcg/inh Inhaler INH SCH (13:06)
[2019-09-03] MEDS: Potassium Chlor TAB* 20 MEQ TAB.ER PO ONE ×2 (15:39→15:51)
[2019-09-03] MEDS: Magnesium Oxide TAB* 400 MG PO SCH (15:40)
[2019-09-03] MEDS ORDERED: Magnesium Sulf 4 GM/100 ML IV* 4,000 MG/100 ML BAG IVPB ONE (16:00)
[2019-09-03] MEDS ORDERED: Digoxin TAB* 0.125 MG PO SCH (17:00)
--- NOTE | 2019-09-03 18:07 | CONSULT ---
Palliative / Hospice Consult Ordering Provider: Elisabeth Davis - PCP-Genevieve Referal Reason: Goals of care/senna/no narcotics - Subjective Code Status: Full Code-Needs Follow Up Advance Directives Location: No Advance Directives - History or Present Illness History or Present Illness: 74 yo female presents with AMS and dehydration. 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 PSHx ex tob user, no etoh, no drug use , retired lives on her own, she has a son and a daughter Tanya Beebe(HCP) [phone]. Studies CXR-mild cardiomegaly otherwise neg, ekg-afib, renal U/S-bilat mod hydronephrosis and 2 kidney stones, H/H 10.5/32, BUn/Cr 36/1.10, egfr 48.8, Ca 8.2, alb 2.8, inr 2.92 and BC +.P.mirabilis. Pt was admitted with urosepsis, VELVET and afib RVR. Pt has one prior hospitalization 05/27-05/28 for vag bleeding and 07/24 ER visit for weakness. All history is from family and medical record. Lab Values: Abnormal Lab Results 09/02/19 09/02/19 09/02/19 00:04 16:12 16:12 WBC RBC Hgb Hct MCV MCH MCHC RDW Plt Count MPV Neut % (Auto) Lymph % (Auto) [place] % (Auto) Eos % (Auto) Baso % (Auto) Absolute Neuts (auto) Absolute Lymphs (auto) Absolute Monos (auto) Absolute Eos (auto) Absolute Basos (auto) Absolute Nucleated RBC Nucleated RBC % Hem Pathologist Commnt INR (Anticoag Therapy) Sodium 142 Potassium 3.4 L Chloride 107 Carbon Dioxide 24 Anion Gap 11 BUN 39 H Creatinine 1.15 H Est GFR ( Amer) 56.1 Est GFR (Non-Af Amer) 46.4 BUN/Creatinine Ratio 33.9 H Glucose 105 H Lactic Acid 1.7 Calcium 8.0 L Magnesium Total Bilirubin AST ALT Alkaline Phosphatase Total Protein Albumin Globulin Albumin/Globulin Ratio Prealbumin 8 L 09/02/19 09/03/19 09/03/19 20:48 06:00 06:00 WBC RBC Hgb Hct MCV MCH MCHC RDW Plt Count MPV Neut % (Auto) Lymph % (Auto) [place] % (Auto) Eos % (Auto) Baso % (Auto) Absolute Neuts (auto) Absolute Lymphs (auto) Absolute Monos (auto) Absolute Eos (auto) Absolute Basos (auto) Absolute Nucleated RBC Nucleated RBC % Hem Pathologist Commnt INR (Anticoag Therapy) 2.92 H Sodium 142 Potassium TNP Chloride 111 Carbon Dioxide 24 Anion Gap 7 BUN 36 H Creatinine 1.10 H Est GFR ( Amer) 59.1 Est GFR (Non-Af Amer) 48.8 BUN/Creatinine Ratio 32.7 H Glucose 72 Lactic Acid 2.3 H* Calcium 8.2 L Magnesium TNP Total Bilirubin 1.10 H AST TNP ALT 15 Alkaline Phosphatase 85 Total Protein 5.4 L Albumin 2.8 L Globulin 2.6 Albumin/Globulin Ratio 1.1 Prealbumin 09/03/19 09/03/19 06:00 11:20 WBC 14.2 H RBC 3.06 L Hgb 10.5 L Hct 32 L MCV 104 H MCH 34 H MCHC 33 RDW 19 H Plt Count 100 L MPV 11.0 H Neut % (Auto) 91.9 Lymph % (Auto) 4.7 [place] % (Auto) 2.4 Eos % (Auto) 0.9 Baso % (Auto) 0.1 Absolute Neuts (auto) 13.0 H Absolute Lymphs (auto) 0.7 L Absolute Monos (auto) 0.3 Absolute Eos (auto) 0.1 Absolute Basos (auto) 0.0 Absolute Nucleated RBC 0.0 Nucleated RBC % 0.1 Hem Pathologist Commnt INR (Anticoag Therapy) Sodium Potassium 3.0 L Chloride Carbon Dioxide Anion Gap BUN Creatinine Est GFR ( Amer) Est GFR (Non-Af Amer) BUN/Creatinine Ratio Glucose Lactic Acid Calcium Magnesium 1.3 L Total Bilirubin AST 7 L ALT Alkaline Phosphatase Total Protein Albumin Globulin Albumin/Globulin Ratio Prealbumin Laboratory Last Values WBC 14.2 10^3/uL (3.5-10.8) H 09/03/19 06:00 RBC 3.06 10^6 /uL (3.70-4.87) L 09/03/19 06:00 Hgb 10.5 g/dL (12.0-16.0) L 09/03/19 06:00 Hct 32 % (35-47) L 09/03/19 06:00 MCV 104 fL (80-97) H 09/03/19 06:00 MCH 34 pg (27-31) H 09/03/19 06:00 MCHC 33 g/dL (31-36) 09/03/19 06:00 RDW 19 % (10-15) H 09/03/19 06:00 Plt Count 100 10^3/uL (150-450) L 09/03/19 06:00 MPV 11.0 fL (7.4-10.4) H 09/03/19 06:00 Neut % (Auto) 91.9 % 09/03/19 06:00 Lymph % (Auto) 4.7 % 09/03/19 06:00 [place] % (Auto) 2.4 % 09/03/19 06:00 Eos % (Auto) 0.9 % 09/03/19 06:00 Baso % (Auto) 0.1 % 09/03/19 06:00 Absolute Neuts (auto) 13.0 10^3/ul (1.5-7.7) H 09/03/19 06:00 Absolute Lymphs (auto) 0.7 10^3/ul (1.0-4.8) L 09/03/19 06:00 Absolute Monos (auto) 0.3 10^3/ul (0-0.8) 09/03/19 06:00 Absolute Eos (auto) 0.1 10^3/ul (0-0.6) 09/03/19 06:00 Absolute Basos (auto) 0.0 10^3/ul (0-0.2) 09/03/19 06:00 Absolute Nucleated RBC 0.0 10^3/ul 09/03/19 06:00 Nucleated RBC % 0.1 09/03/19 06:00 Hem Pathologist Commnt 09/02/19 16:12 INR (Anticoag Therapy) 2.92 (0.82-1.09) H 09/03/19 06:00 APTT 40.4 seconds (26.0-38.0) H 09/02/19 10:13 Sodium 142 mmol/L (135-145) 09/03/19 06:00 Potassium 3.0 mmol/L (3.5-5.0) L 09/03/19 11:20 Chloride 111 mmol/L (101-111) 09/03/19 06:00 Carbon Dioxide 24 mmol/L (22-32) 09/03/19 06:00 Anion Gap 7 mmol/L (2-11) 09/03/19 06:00 BUN 36 mg/dL (6-24) H 09/03/19 06:00 Creatinine 1.10 mg/dL (0.51-0.95) H 09/03/19 06:00 Est GFR ( Amer) 59.1 (>60) 09/03/19 06:00 Est GFR (Non-Af Amer) 48.8 (>60) 09/03/19 06:00 BUN/Creatinine Ratio 32.7 (8-20) H 09/03/19 06:00 Glucose 72 mg/dL (70-100) 09/03/19 06:00 Lactic Acid 2.3 mmol/L (0.5-2.0) H* 09/02/19 20:48 Calcium 8.2 mg/dL (8.6-10.3) L 09/03/19 06:00 Magnesium 1.3 mg/dL (1.9-2.7) L 09/03/19 11:20 Total Bilirubin 1.10 mg/dL (0.2-1.0) H 09/03/19 06:00 AST 7 U/L (13-39) L 09/03/19 11:20 ALT 15 U/L (7-52) 09/03/19 06:00 Alkaline Phosphatase 85 U/L (34-104) 09/03/19 06:00 Troponin I 0.16 ng/mL (<0.03) H* 09/02/19 13:08 C-Reactive Protein 82.11 mg/L (<8.01) H 09/02/19 10:13 B-Natriuretic Peptide 354 pg/mL (<=100) H 09/02/19 10:12 Total Protein 5.4 g/dL (6.4-8.9) L 09/03/19 06:00 Albumin 2.8 g/dL (3.2-5.2) L 09/03/19 06:00 Globulin 2.6 g/dL (2-4) 09/03/19 06:00 Albumin/Globulin Ratio 1.1 (1-3) 09/03/19 06:00 Prealbumin 8 mg/dL (18-38) L 09/02/19 16:12 TSH 6.79 mcIU/mL (0.34-5.60) H 09/02/19 10:13 Free T4 0.26 ng/dL (0.61-1.12) L 09/02/19 10:13 Urine Color Red A 09/02/19 14:30 Urine Appearance Turbid 09/02/19 14:30 Urine pH 8.0 (5-9) 09/02/19 14:30 Ur Specific [place] 1.014 (1.010-1.030) 09/02/19 14:30 Urine Protein 3+(>=500 mg/dl) (Negative) A 09/02/19 14:30 Urine Ketones Negative (Negative) 09/02/19 14:30 Urine Blood 2+ (Negative) A 09/02/19 14:30 Urine Nitrate Negative (Negative) 09/02/19 14:30 Urine Bilirubin Negative (Negative) 09/02/19 14:30 Urine Urobilinogen Negative (Negative) 09/02/19 14:30 Ur Leukocyte Esterase 2+ (Negative) A 09/02/19 14:30 Urine WBC (Auto) 2+(11-20/hpf) (Absent) A 09/02/19 14:30 Urine RBC (Auto) 3+(>10/hpf) (Absent) A 09/02/19 14:30 Urine Bacteria 2+ (Absent) A 09/02/19 14:30 Urine Glucose Negative (Negative) 09/02/19 14:30 Digoxin < 0.3 ng/ml (0.8-2.0) L 09/02/19 10:13 Blood Type O Positive 09/02/19 10:12 Antibody Screen Negative 09/02/19 10:12 - Objective Active Medications: Acetaminophen (Tylenol Tab*) 650 mg PO Q4H PRN PRN Reason: MILD PAIN or TEMP > 100.4 Last Admin: 09/03/19 03:14 Dose: 650 mg Al Hydrox/Mg Hydrox/Simethicone (Maalox Plus*) 30 ml PO Q6H PRN PRN Reason: INDIGESTION Albuterol (Ventolin Hfa Inhaler*) 2 puff INH Q4H PRN PRN Reason: SOB/WHEEZING Atorvastatin Calcium (Lipitor*) 20 mg PO DAILY [facility] Last Admin: 09/03/19 09:25 Dose: 20 mg Digoxin (Lanoxin Tab*) 0.125 mg PO 1700 [facility] Last Admin: 09/03/19 17:17 Dose: 0.125 mg Diltiazem HCl (Cardizem Tab*) 60 mg PO Q6HR [facility] Last Admin: 09/03/19 17:17 Dose: 60 mg Sodium Chloride (Ns 0.9% 1000 Ml) 1,000 mls @ 100 mls/hr IV PER RATE [facility] Last Admin: 09/03/19 15:39 Dose: 100 mls/hr Ceftriaxone Sodium 1 gm/ (Sodium Chloride) 50 mls @ 100 mls/hr IVPB Q24H [facility] Last Admin: 09/03/19 09:25 Dose: 100 mls/hr Magnesium Sulfate (Magnesium Sulf 4 Gm/100 Ml Iv*) 4,000 mg in 100 mls @ 33.333 mls/hr IVPB ONCE ONE Stop: 09/03/19 18:59 Last Admin: 09/03/19 15:55 Dose: 33.333 mls/hr Potassium Chloride (Potassium Chloride 20 Meq/100 Ml Ivpremix*) 20 meq in 100 mls @ 50 mls/hr IV Q2H [facility] Stop: 09/03/19 21:59 Last Admin: 09/03/19 16:06 Dose: 50 mls/hr Levothyroxine Sodium (Synthroid Tab*) 175 mcg PO 0600 [facility] Last Admin: 09/03/19 05:10 Dose: 175 mcg Magnesium Oxide (Magox 400 Tab*) 800 mg PO DAILY [facility] Last Admin: 09/03/19 15:40 Dose: 800 mg Metoprolol Succinate (Toprol Xl Tab*) 25 mg PO Q12HR [facility] Last Admin: 09/03/19 09:25 Dose: 25 mg Mometasone Furoate (Asmanex 220 Mcg Mdi *) 2 puff INH QPM [facility] Last Admin: 09/02/19 19:11 Dose: Not Given Ondansetron HCl (Zofran Inj*) 4 mg IV Q4H PRN PRN Reason: NAUSEA/VOMITING Potassium Chloride (Klor Con Er Tab*) 10 meq PO DAILY [facility] Last Admin: 09/03/19 09:25 Dose: 10 meq Senna (Senokot 8.6 Mg Tab*) 1 tab PO BID PRN PRN Reason: CONSTIPATION Sertraline HCl (Zoloft*) 200 mg PO BEDTIME [facility] Last Admin: 09/02/19 20:44 Dose: 200 mg Tiotropium [place] (Spiriva Respimat 2.5 Mcg) 2 puff INH DAILY [facility] Last Admin: 09/03/19 13:06 Dose: Not Given Vitamin A/Vitamin D (Vitamin A & D Oint*) 1 applic TOPICAL TID PRN PRN Reason: skin breakdown Last Admin: 09/02/19 21:30 Dose: 1 applic Vital Signs: Vital Signs: Temp Pulse Resp BP Pulse Ox 97.8 F 113 16 123/67 93 09/03/19 15:00 09/03/19 17:17 09/03/19 15:00 09/03/19 15:00 09/03/19 15:00 Patient Weight: Weight 65.771 kg Intake and Output: Intake & Output 09/01/19 09/02/19 09/03/19 09/04/19 06:59 06:59 06:59 06:59 Intake Total 2026.5 1120 Output Total 250 250 Balance 1776.5 870 Weight 65.771 kg Intake: IV Fluids 2000 1000 NS (0.9%) 1000 IVPB 60 ABX - CEFTRIAXONE 60 Medicated IV 26.5 GEN - Diltiazem/Cardizem 26.5 Oral 60 Output: Maher 250 250 Other: # Bowel Movements 1 Estimated Stool Amount Small ADLs: Meal Record Start: 09/02/19 13: 13 Freq: 09,13,18 Status: Complete Protocol: Created 09/02/19 13:13 System (Rec: 09/02/19 13:13 [id number] [email or web address]) ADLs: Meal Record Start: 09/02/19 17: 30 Freq: Status: Active Protocol: Created 09/02/19 17:30 [id number] (Rec: 09/02/19 17:30 [id number]) Document 09/03/19 14:07 [id number] (Rec: 09/03/19 14:07 [id number] [email or web address]) Intake and Output Start: 09/02/19 09: 47 Freq: Status: Active Protocol: Created 09/02/19 09:47 System (Rec: 09/02/19 09:47 System [id number]) Intake and Output Start: 09/02/19 13: 13 Freq: Q1HR Status: Complete Protocol: Created 09/02/19 13:13 System (Rec: 09/02/19 13:13 System [id number]) Head: Normal Eyes: No Scleral Icterus, PERRLA Ears/Nose/Mouth/Throat: NL Teeth, Lips, Gums, Mucous Membranes Moist Neck: NL Appearance and Movements; NL JVP, Trachea Midline Cardiovascular: - - irregular, tachy Respiratory: Symmetrical Chest Expansion and Respiratory Effort Abdominal: NL Sounds; No Tenderness; No Distention, No Hepatosplenomegaly Extremities: No Clubbing, Cyanosis, - - trace pedal edema b/l Neurological: - - generalized muscle weakness due to deconditioning, no focal deficit - Assessment Assessment: 74yo female admitted with urospesis, VELVET and afib - Plan Consult Plan (MU): Palliative Plan: Long discussion with daughter about goals of care. Family's priorities are to do biopsy to determine if pt has cancer because that will alter care plan, be able to return home and not suffer. Pt has early mild dementia but her behavior and altered mental status the last few days is out of character. Daughter feels pt has been depressed because pt's 2 sisters have recently and both 24hrs after being admitted to the hospital one for hip fx and respiratory failure the other for pneumonia. Pt was stating that she wants to join her sisters and doesn't want to live so daughter was surprised when mother opted to be full code. She feels mother wouldn't want CPR or to be intubated. Will address with pt tomorrow. If the biopsy shows cancer she would like to stop further treatment bring pt home with hospice. Hospice information/brochure given. If the biopsy is negative will proceed with current care but still bring pt home with VNS. Daughter and son would be providing 24hr care. Because of the bacteremia the biopsy will have to be postponed until pt has been on antibiotics for 2 weeks. In the meantime family is okay with pt going to rehab at [facility] or [facility]. Will have SW check with pt about depression. If biopsy is positive pt would most likely be eligible for hospice especially if she did not pursue treatment. PPS 60%, PPS 60% - Time On Unit Date of Evaluation: 09/03/19 Hospice Consult Time in: 16:30 Hospice Consult Time Out: 17:30 Hospice Consult Time Total: 60 > 50% of Time Spend In Counseling or Coordinating Care: Yes
[2019-09-03] MEDS: Mometasone 220 MCG MDI INH SCH (20:08)
[2019-09-03] MEDS: Sertraline* 100 MG TAB PO SCH (21:32)
[2019-09-03] MEDS ORDERED: Morphine INJ* 2 MG/ML 1 ML SYRINGE (TWO MG - NEW SYRINGE VERSION) IV ONE (23:28)
[2019-09-04] MEDS: Diltiazem TAB* 60 MG PO SCH ×3 (00:21→12:44)
[2019-09-04] MEDS: KCL 20 MEQ/100 ML IVPREMIX* 20 MEQ/100 ML BAG IV SCH (00:21)
[2019-09-04] MEDS: Metoprolol Tartrate IV* 1 MG/ML 5 ML VIAL IV SCH ×3 (00:21→12:38)
[2019-09-04] MEDS: NS 0.9% 1000 ML** 1,000 ML IV SCH (06:18)
[2019-09-04 06:28] LABS: CO2 Carbon Dioxide 18 mmol/L (22-32); Calcium 7.6 mg/dL (8.6-10.3); Magnesium 2.8 mg/dL (1.9-2.7); Sodium 143 mmol/L (135-145)
[2019-09-04 06:32] LABS: ABS Eosinophils 0.2 10^3/ul (0-0.6); ABS Lymphocytes 0.7 10^3/ul (1.0-4.8); ABS Monocytes 0.3 10^3/ul (0-0.8); ABS Neutrophils 9.3 10^3/ul (1.5-7.7); Eosinophil % 1.7 %; Hematocrit 29 % (35-47); Hemoglobin 9.2 g/dL (12.0-16.0); Lymphocyte % 6.7 %; Mean Corpuscular HGB Conc 32 g/dL (31-36); Mean Corpuscular Hemoglobin 35 pg (27-31); Mean Corpuscular Volume 111 fL (80-97); Mean Platelet Volume 10.4 fL (7.4-10.4); Nucleated Red Blood Cells % 0.1; Platelet Count 78 10^3/uL (150-450); Red Blood Count 2.61 10^6 /uL (3.70-4.87); Red Cell Distribution Width 20 % (10-15); White Blood Count 10.6 10^3/uL (3.5-10.8)
[2019-09-04 06:34] LABS: BUN/Creatinine Ratio 29.2 (8-20); Blood Urea Nitrogen 31 mg/dL (6-24); EGFR African American 61.7 (>60); Glucose 69 mg/dL (70-100)
[2019-09-04 06:35] LABS: Chloride 117 mmol/L (101-111)
[2019-09-04 06:41] LABS: Anion Gap 8 mmol/L (2-11)
[2019-09-04] MEDS: SPIRIVA Respimat* (tiotropium) 2.5 mcg/inh Inhaler INH SCH (07:54)
[2019-09-04] MEDS: Levothyroxine TAB* 175 MCG TAB PO SCH (07:56)
[2019-09-04] MEDS ORDERED: NS 0.9% 1000 ML** 1,000 ML IV SCH ×2 (08:33→10:04)
[2019-09-04] MEDS ORDERED: Phytonadione IV (Adult)* 10 MG/ML 1 ML AMP IV ONE (08:39)
[2019-09-04] MEDS: cefTRIAXone(*) 1 GM in NS 0.9% 50 ML* 50 ML IVPB SCH (09:04)
[2019-09-04] MEDS: Atorvastatin* 20 MG TAB PO SCH ×2 (09:04→10:55)
--- NOTE | 2019-09-04 10:11 | PN ---
Subjective Date of Service: 09/04/19 Interval History: Pt is more confused today, mouth very dry. Seen with daughter by the bedside. Able to say "yes" to if she feels OK. Not able to tell me her age. moving frequently . Able to follow only very simple commands Family History: Unchanged from Admission Social History: Unchanged from Admission Past Medical History: Unchanged from Admission Objective Active Medications: Acetaminophen (Tylenol Tab*) 650 mg PO Q4H PRN PRN Reason: MILD PAIN or TEMP > 100.4 Last Admin: 09/03/19 03:14 Dose: 650 mg Al Hydrox/Mg Hydrox/Simethicone (Maalox Plus*) 30 ml PO Q6H PRN PRN Reason: INDIGESTION Albuterol (Ventolin Hfa Inhaler*) 2 puff INH Q4H PRN PRN Reason: SOB/WHEEZING Atorvastatin Calcium (Lipitor*) 20 mg PO DAILY [facility] Last Admin: 09/03/19 09:25 Dose: 20 mg Digoxin (Lanoxin Tab*) 0.125 mg PO 1700 [facility] Last Admin: 09/03/19 17:17 Dose: 0.125 mg Diltiazem HCl (Cardizem Tab*) 60 mg PO Q6HR [facility] Last Admin: 09/04/19 07:56 Dose: Not Given Ceftriaxone Sodium 1 gm/ (Sodium Chloride) 50 mls @ 100 mls/hr IVPB Q24H [facility] Last Admin: 09/04/19 09:04 Dose: 100 mls/hr Sodium Chloride (Ns 0.9% 1000 Ml) 1,000 mls @ 100 mls/hr IV PER RATE [facility] Levothyroxine Sodium (Synthroid Tab*) 175 mcg PO 0600 [facility] Last Admin: 09/04/19 07:56 Dose: Not Given Magnesium Oxide (Magox 400 Tab*) 800 mg PO DAILY [facility] Last Admin: 09/03/19 15:40 Dose: 800 mg Metoprolol Tartrate (Lopressor Iv*) 5 mg IV Q6H [facility] Last Admin: 09/04/19 06:16 Dose: 5 mg Mometasone Furoate (Asmanex 220 Mcg Mdi *) 2 puff INH QPM [facility] Last Admin: 09/03/19 20:08 Dose: 2 puff Ondansetron HCl (Zofran Inj*) 4 mg IV Q4H PRN PRN Reason: NAUSEA/VOMITING Senna (Senokot 8.6 Mg Tab*) 1 tab PO BID PRN PRN Reason: CONSTIPATION Sertraline HCl (Zoloft*) 200 mg PO BEDTIME [facility] Last Admin: 09/03/19 21:32 Dose: 200 mg Tiotropium [place] (Spiriva Respimat 2.5 Mcg) 2 puff INH DAILY [facility] Last Admin: 09/04/19 07:54 Dose: 2 puff Vitamin A/Vitamin D (Vitamin A & D Oint*) 1 applic TOPICAL TID PRN PRN Reason: skin breakdown Last Admin: 09/02/19 21:30 Dose: 1 applic Vital Signs - 8 hr 09/04/19 09/04/19 09/04/19 02:08 03:44 05:06 Temperature 97.3 F Pulse Rate 77 Respiratory 16 20 16 Rate Blood Pressure 110/44 (mmHg) O2 Sat by Pulse 99 Oximetry 09/04/19 09/04/19 06:26 08:00 Temperature Pulse Rate Respiratory 18 Rate Blood Pressure 119/68 (mmHg) O2 Sat by Pulse Oximetry Oxygen Devices in Use Now: None Appearance: 74 yo F in NAD, able to say "yes" only, confused, moving frequently in bed Eyes: No Scleral Icterus, PERRLA Ears/Nose/Mouth/Throat: NL Teeth, Lips, Gums, - - dry mucosa Neck: NL Appearance and Movements; NL JVP, Trachea Midline Respiratory: Symmetrical Chest Expansion and Respiratory Effort, Clear to Auscultation Cardiovascular: - - irregular 2/6 JAYDA Abdominal: NL Sounds; No Tenderness; No Distention, No Hepatosplenomegaly Lymphatic: No Cervical Adenopathy Extremities: No Clubbing, Cyanosis, - - trace b/l pedal edema Neurological: - - motor 5/5, minimally verbal, face symmetrical - Nutrition: Malnutrition Diagnosis/Plan Malnutrition Assessment by Registered Dietitian: Malnutrition Assessment Clinical Characteristics Chronic,Severe Malnutrition Assessment: Inadequate Oral Intake - Anticipate meeting <75 % Criteria nutrient needs >1 mo given severity of wt loss (severe) Unintentional Weight Loss - Current wt 145lb, prev wt 183lb (05/2019) - 20.8% loss x3 mos ( severe) Malnutrition Assessment: Nutritional Supplementals/Nourishments - Will Interventions trial Ensure Enlive (350kcal, 20g prot/serv) w/ B, L, and D daily to optimize kcal/prot intake; will monitor acceptance GI Related - Recommend giving antidiarrheal as indicated; will monitor GI s/sx for impact on intake Malnutrition Assessment: Goals 1) Adequate po intake to support lean body mass , wound healing, and hydration status 2) Improve fluid/electrolyte balance w/ adequate po intake and repletion PRN 3) Maintain bowel regularity w/ adequate po intake and bowel meds w/o exac of diarrhea/ development of constipation Result Diagrams: 09/04/19 05:56 09/04/19 07:05 Additional Lab and Data: Above labs were pulled in to the note, when the note was edited prior to signing. See below for labs from the day of consultation. Laboratory Tests 09/02/19 09/02/19 09/02/19 10:13 16:12 16:12 WBC 14.3 H Hgb 9.6 L Hct 29 L Plt Count 92 L Sodium 142 Potassium 3.4 L Chloride 107 Carbon Dioxide 24 BUN 39 H Creatinine 1.15 H Glucose 105 H Total Protein 5.4 L Albumin 2.7 L Microbiology and Other Data: Microbiology 09/02/19 10:11 Stool Occult Blood (BRENDA) - Final Stool Assess/Plan/Problems-Billing Assessment: 74 yo female with significant PMHx afib, HTN, hypothyroidism presents with altered mental status, found to have afib with RVR, hypokalemia, and severe sepsis secondary to likely UTI in setting of urinary and bowel incontinence. - Patient Problems (1) Cervical cancer Comment: as per d/w [facility] BACK[facility] at [facility] - they do not the equipement to perform uterine bx in hospital that would not be indicated in pt with bacteremia anyway Ct shows invasive mass likley arising from cervix, blocking both ureters causing b/l hydronephrosis and eroding intor the bladder. Spoke with our urology - not amenable for cystoscopy and stenting. Could have urostomy tubes placed but that is not a benign procedure in a pt who is prob. hospice candidate. Nevertheless the daughter would not want any procedures performed here, but at [facility]. Called [facility] for a Supervisor Advice /onc consult. Checking INR, pt received vit K today for reversal in case she goes for nephrostomy (2) Severe sepsis Comment: source is gram negative bacteremia likely related to UTI-cx positive for Proteus mirabilis cont Ceftriaxone LA improving-no need to keep on rechecking it since trending down on current tx (3) Vaginal bleeding (4) Atrial fibrillation Comment: controlled. cont se Cardizem IR cont digoxin, cont toprol coumadin d/c'd at admission due to vaginal bleeding (5) Troponin I above reference range Comment: due to demand ischemia (6) VELVET (acute kidney injury) Comment: due to sepsis and dehydration, improving (7) Hypothyroidism Comment: TSH elevated , but pt has not been taking her meds at home cont home dose Synthroid for now (8) Encephalopathy acute Comment: due to sepsis worsening today (9) Electrolyte abnormality Comment: hypokalemia and hypomagnesemia-replacing IV and PO (10) DVT prophylaxis Comment: SCD's, no meds due to vaginal bleeding Status and Disposition: Inpatient.
[2019-09-04] MEDS: Magnesium Oxide TAB* 400 MG PO SCH (10:55)
[2019-09-04] MEDS ORDERED: Phytonadione 10 mg in 50 mL NS over 30 min IV ONE (12:00)
[2019-09-04 12:04] LABS: INR 2.29 (0.82-1.09)
[2019-09-04] MEDS ORDERED: Morphine ORAL CONCENTRATE* 5 MG/0.25 ML ORAL.SYRIN PO PRN (16:14)
[2019-09-04] MEDS ORDERED: Lorazepam PYXIS KEY PRN (16:15)
[2019-09-04] MEDS: Morphine INJ* 4 MG/ML 1 ML SYRINGE (NEW SYRINGE VERSION) IV PRN ×3 (17:03→23:52)
[2019-09-04] MEDS: Mometasone 220 MCG MDI INH SCH ×2 (19:34→19:35)
[2019-09-04] MEDS: LORazepam INJ* 2 MG/ML 1 ML VIAL IV PUSH PRN (21:12)
[2019-09-04] MEDS: Sertraline* 100 MG TAB PO SCH (21:21)
[2019-09-05] MEDS: LORazepam INJ* 2 MG/ML 1 ML VIAL IV PUSH PRN ×2 (01:13→05:47)
[2019-09-05] MEDS: Morphine INJ* 4 MG/ML 1 ML SYRINGE (NEW SYRINGE VERSION) IV PRN ×13 (01:52→23:06)
[2019-09-05 05:21] VITALS: BP 110/50
[2019-09-05] MEDS: SPIRIVA Respimat* (tiotropium) 2.5 mcg/inh Inhaler INH SCH (08:09)
[2019-09-05] MEDS: cefTRIAXone(*) 1 GM in NS 0.9% 50 ML* 50 ML IVPB SCH (08:50)
[2019-09-05] MEDS ORDERED: Morphine ORAL CONCENTRATE* 5 MG/0.25 ML ORAL.SYRIN PO PRN (11:07)
--- NOTE | 2019-09-05 16:17 | PN ---
Subjective Date of Service: 09/05/19 Interval History: Pt is sedated with morphine. all the family members including: daughter, son, 3 nephews are by the bedside. Pt is unresponsive Family History: Unchanged from Admission Social History: Unchanged from Admission Past Medical History: Unchanged from Admission Objective Active Medications: Acetaminophen (Tylenol Tab*) 650 mg PO Q4H PRN PRN Reason: MILD PAIN or TEMP > 100.4 Last Admin: 09/03/19 03:14 Dose: 650 mg Al Hydrox/Mg Hydrox/Simethicone (Maalox Plus*) 30 ml PO Q6H PRN PRN Reason: INDIGESTION Albuterol (Ventolin Hfa Inhaler*) 2 puff INH Q4H PRN PRN Reason: SOB/WHEEZING Ceftriaxone Sodium 1 gm/ (Sodium Chloride) 50 mls @ 100 mls/hr IVPB Q24H [facility] Last Admin: 09/05/19 08:50 Dose: Not Given Lorazepam (Ativan Inj*) 0.5 mg IV PUSH Q4H PRN PRN Reason: ANXIETY Last Admin: 09/05/19 05:47 Dose: 0.5 mg Miscellaneous (Ativan Pyxis Garcia) 1 ea N/A .ATIVAN IV GARCIA PRN PRN Reason: PYXIS GARCIA Mometasone Furoate (Asmanex 220 Mcg Mdi *) 2 puff INH QPM [facility] Last Admin: 09/04/19 19:35 Dose: Not Given Morphine Sulfate (Morphine Inj (Syringe)*) 4 mg IV Q1H PRN PRN Reason: PAIN - SEVERE Last Admin: 09/05/19 15:27 Dose: 4 mg Morphine Sulfate (Morphine Oral Concentrate*) 10 mg PO Q1H PRN PRN Reason: PAIN - SEVERE Ondansetron HCl (Zofran Inj*) 4 mg IV Q4H PRN PRN Reason: NAUSEA/VOMITING Sertraline HCl (Zoloft*) 200 mg PO BEDTIME [facility] Last Admin: 09/04/19 21:21 Dose: Not Given Tiotropium [place] (Spiriva Respimat 2.5 Mcg) 2 puff INH DAILY [facility] Last Admin: 09/05/19 08:09 Dose: Not Given Vitamin A/Vitamin D (Vitamin A & D Oint*) 1 applic TOPICAL TID PRN PRN Reason: skin breakdown Last Admin: 09/02/19 21:30 Dose: 1 applic Vital Signs - 8 hr 09/05/19 09/05/19 09/05/19 08:43 10:43 11:52 Respiratory 16 14 14 Rate 09/05/19 09/05/19 13:56 15:27 Respiratory 12 12 Rate Oxygen Devices in Use Now: None Appearance: 74 yo F, unresponsive, lying in bed in nAD Eyes: PERRLA Neck: NL Appearance and Movements; NL JVP Respiratory: Symmetrical Chest Expansion and Respiratory Effort, - - rhonchi b/l Cardiovascular: - - irregular Abdominal: NL Sounds; No Tenderness; No Distention Skin: - - scattered trunk ecchymoses - Nutrition: Malnutrition Diagnosis/Plan Malnutrition Assessment by Registered Dietitian: Malnutrition Assessment Clinical Characteristics Chronic,Severe Malnutrition Assessment: Inadequate Oral Intake - Anticipate meeting <75 % Criteria nutrient needs >1 mo given severity of wt loss (severe) Unintentional Weight Loss - Current wt 145lb, prev wt 183lb (05/2019) - 20.8% loss x3 mos ( severe) Malnutrition Assessment: Nutritional Supplementals/Nourishments - Will Interventions trial Ensure Enlive (350kcal, 20g prot/serv) w/ B, L, and D daily to optimize kcal/prot intake; will monitor acceptance GI Related - Recommend giving antidiarrheal as indicated; will monitor GI s/sx for impact on intake Malnutrition Assessment: Goals 1) Adequate po intake to support lean body mass , wound healing, and hydration status 2) Improve fluid/electrolyte balance w/ adequate po intake and repletion PRN 3) Maintain bowel regularity w/ adequate po intake and bowel meds w/o exac of diarrhea/ development of constipation Result Diagrams: 09/04/19 05:56 09/04/19 07:05 Additional Lab and Data: Above labs were pulled in to the note, when the note was edited prior to signing. See below for labs from the day of consultation. Laboratory Tests 09/02/19 09/02/19 09/02/19 10:13 16:12 16:12 WBC 14.3 H Hgb 9.6 L Hct 29 L Plt Count 92 L Sodium 142 Potassium 3.4 L Chloride 107 Carbon Dioxide 24 BUN 39 H Creatinine 1.15 H Glucose 105 H Total Protein 5.4 L Albumin 2.7 L Microbiology and Other Data: Microbiology 09/02/19 10:11 Stool Occult Blood (BRENDA) - Final Stool Assess/Plan/Problems-Billing Assessment: 74 yo female with significant PMHx afib, HTN, hypothyroidism presents with altered mental status, found to have afib with RVR, hypokalemia, and severe sepsis secondary to likely UTI in setting of urinary and bowel incontinence. - Patient Problems (1) Cervical cancer Comment: CT shows invasive mass likely arising from cervix, blocking both ureters causing b/l hydronephrosis and eroding intor the bladder. Spoke with DR. Walton from [facility] [employer] Dept.After reviewing the case with the specialist the assessment id that pt is not a candidate for chemo due to low functional status, or radiation due to skin wounds. Pt has likely stage 4 cervical or endometrial cancer and hospice was recommended. D/w Pt's daughter who agreed to place pt on comfort care (OK to cont IV antibiotics till IV access available)-started on 09/04/19 (2) Severe sepsis Comment: stopped tx. comfort care (3) Vaginal bleeding (4) Atrial fibrillation Comment: stopped tx. comfort care (5) Troponin I above reference range Comment: due to demand ischemia (6) VELVET (acute kidney injury) Comment: due to sepsis and dehydration (7) Hypothyroidism Comment: stopped tx. comfort care (8) Encephalopathy acute Comment: due to sepsis (9) Electrolyte abnormality Comment: hypokalemia and hypomagnesemia stopped tx. comfort care (10) DVT prophylaxis Comment: stopped tx. comfort care Status and Disposition: Inpatient.Pt will likely in the next 24H, cont comfort care
[2019-09-05] MEDS: Atropine 1% (ORAL/SL)* 15 ML BTL SL PRN ×2 (20:32→23:08)
[2019-09-06] MEDS: Morphine INJ* 4 MG/ML 1 ML SYRINGE (NEW SYRINGE VERSION) IV PRN ×5 (01:34→06:59)
[2019-09-06] MEDS: Atropine 1% (ORAL/SL)* 15 ML BTL SL PRN ×2 (01:34→05:33)
--- NOTE | 2019-09-06 11:19 | DS ---
CC: Dr. Vallejo DISCHARGE SUMMARY/ NOTE: DATE OF ADMISSION: 09/02/19 DATE OF : 09/06/19 PRIMARY CARE PROVIDER: Dr. Vallejo. DISCHARGE DIAGNOSES: 1. Presumed cervical cancer. 2. Severe sepsis. 3. Proteus mirabilis. 4. Troponin elevation secondary to demand ischemia. 5. Acute kidney injury. SECONDARY DIAGNOSES: 1. Atrial fibrillation, on warfarin. 2. Hyperlipidemia. 3. Hypertension. 4. Hypothyroidism. 5. Chronic obstructive pulmonary disease. 6. Osteoarthritis. 7. Osteoporosis. 8. Obstructive sleep apnea, on CPAP. 9. Depression. HOSPITAL COURSE: Mrs. Rhodes was a 74-year-old female with a past medical history as stated above delmar t was brought in to the emergency room on 09/02/19 due to altered mental status. As per HPI, the pat ient had not gotten out of bed for 3 to 5 days prior to admission including being incontinent in bed. The patient has had ongoing weight loss and vaginal bleeding. She had multiple gynecology appointm ent scheduled but she was not able to attend them as she was too weak to be seen. For more details a bout presentation, I refer you to her history and physical. The patient was admitted for the impress ion of severe sepsis secondary to urinary tract infection. In the emergency room, she was found to have leukocytosis 15,000, creatinine of 1.2, and she had a re nal ultrasound that showed bilateral moderately severe hydronephrosis with 2 calyceal stones visualiz ed in the right kidney. The patient was admitted for further evaluation and a CT of the abdomen and pelvis that showed probab le advanced inflammatory process or neoplasm at the cervix and uterus with local extension accounting for obstruction of the distal ureters and severe bilateral hydronephrosis. Negative lymphadenopathy or bone lesions. With those findings, palliative care was consulted (Dr. Crooks) and family was initially interested i n having an opinion from [place]. Dr. Davis contacted Dr. Walton from [facility] and after reviewing the case, his assessment was the patient was not a candidate for chemo due to low functional status or radiation due to her skin wounds. He felt the patient likely had stage 4 cervical or endometrial cancer and the recommendation was for hospice. That conversation was discussed with the patient's bharat wilburn who agreed the patient be placed on comfort care and requested hospice care resident placement . In the meantime, the patient was found to have Proteus mirabilis growing in the blood and in the urin e. She was treated initially with cefepime. The patient's condition continued to decline and comfor t measures were continued. I was called by her nurse that the patient had on 09/06/19 at 7:0 5 a.m. STATUS WHILE IN THE HOSPITAL: Inpatient. CONDITION AT THE TIME OF DISCHARGE: . DISPOSITION: . Please keep in mind, this is a summarized version of this patient's hospital stay. If you need more i nformation, please feel free to call me at [phone] or please obtain full medical records. TIME SPENT: Approximately 45 minutes was spent to complete this discharge. [id number]/[facility] #: [id number]
== END 2019-09-06 07:05 | disposition expired | DRG 871 ==
LOC: ED 09:28 → ICU 12:21 → MEDTELE 12:22
PROVIDERS: ADMIT Internal Medicine; ATTEND Internal Medicine
PROC: 5A09357 Assistance with Respiratory Ventilation, Less than 24 Consecutive Hours, Continuous Positive Airway Pressure (ICD-10-PCS; principal; 2019-09-02)
DX: A41.59 Other Gram-negative sepsis (principal); L89.223 Pressure ulcer of left hip, stage 3; G93.41 Metabolic encephalopathy; N17.9 Acute kidney failure, unspecified; N13.6 Pyonephrosis; I24.8 Other forms of acute ischemic heart disease; E03.9 Hypothyroidism, unspecified; E78.00 Pure hypercholesterolemia, unspecified; I10 Essential (primary) hypertension; I48.91 Unspecified atrial fibrillation; J44.9 Chronic obstructive pulmonary disease, unspecified; M19.90 Unspecified osteoarthritis, unspecified site; M81.0 Age-related osteoporosis without current pathological fracture; H40.9 Unspecified glaucoma; F41.9 Anxiety disorder, unspecified; F32.9 Major depressive disorder, single episode, unspecified; E87.6 Hypokalemia; I25.10 Atherosclerotic heart disease of native coronary artery without angina pectoris; F03.90 Unspecified dementia, unspecified severity, without behavioral disturbance, psychotic disturbance, mood disturbance, and anxiety; Z66 Do not resuscitate; E86.0 Dehydration; R15.9 Full incontinence of feces; E78.5 Hyperlipidemia, unspecified; G47.33 Obstructive sleep apnea (adult) (pediatric); E83.42 Hypomagnesemia; B96.4 Proteus (mirabilis) (morganii) as the cause of diseases classified elsewhere; C53.9 Malignant neoplasm of cervix uteri, unspecified; D69.6 Thrombocytopenia, unspecified; Z79.890 Hormone replacement therapy; Z91.030 Bee allergy status; Z79.01 Long term (current) use of anticoagulants; Z79.51 Long term (current) use of inhaled steroids
CPT/HCPCS: 36415; 71045; 74176; 76775; 80048; 80053; 80162; 81003; 81015; 82270; 83605; 83735; 83880; 84134; 84439; 84443; 84484; 85025; 85027; 85060; 85610; 85730; 86140; 86850; 86900; 86901; 87040; 87077; 87086; 87186; 87205; 93005; 94640; 94660; 99284; A9270-GY; J0696; J1160; J2060; J2270; J3430; J3475; J3480; J3490; J3535